=== PATIENT | female | born 2000 | race Caucasian/White ===

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

== ENCOUNTER → 2019-01-06 12:19 | Outpatient (CLI) | payer OTHER, SELFPAY ==
--- NOTE | 2019-01-06 12:23 | US_ITS ---
PROCEDURE: US OB /MATERNAL DETAIL CLINICAL INDICATION: US OB Complete COMPARISON: US OB TRANSVAGINAL from 11/03/2018 FINDINGS: Single viable intrauterine gestation. Breech position. Placenta: Anteriorplacenta grade 1. There are 2 areas of decreased echogenicity within the placenta and may be due to maternal lakes. Consider follow-up to confirm stability There is average amount fluid. The cervix appears satisfactory. Closed and measuring 4 cm in length. Complete survey performed and was unremarkable on the submitted images as in PACS. No discrete anomalies identified on survey imaging by technologist. Active fetus. Three-vessel cord with satisfactory umbilical cord insertion. 4- chamber heart noted. Survey of brain & ventricles Unremarkable. Face and neck survey unremarkable. Diaphragm and chest views unremarkable. Abdomen: Both kidneys noted and unremarkable. Stomach noted and satisfactory. Spine: Survey of the spine satisfactory with no anomalies identified nor imaged. Both arms and legs noted. Amniotic Fluid: Adequate. Maternal adnexa: No significant findings. There was question of nuchal fold thickening however, only 1 images submitted of this region. Measurements: Average ultrasound age 19 weeks 6 days. Gestational Age 20 weeks 0 days the Estimated due date by ultrasound age 0405/27/2019. Estimated weight 319.6 ggrams. BPD = 20/0 OFD = 20/2 HC = 19/3 AC = 20/0 FL = 20/0 Growth Percentile= 39 percent% Heart Rate = 156 bpm Cerebellum = 20/1 Humerus = 20/1 HC/AC is 1.14 CI is 0.78 FL/BPD is 0.7 FL/AC is 0.22 IMPRESSION: Live intrauterine gestation with an average ultrasound age of 19 weeks 6 days. All parameters correlate. There was questionable nuchal fold thickening which could be confirmed with follow-up. The. There are at least 2 hypoechoic areas within the placenta and may be due to maternal lakes among other less common entities. Consider follow-up to confirm stability Dictated by: Bharath Pruitt MD 01/06/2019 19:55 Electronically signed by Bharath Pruitt MD in [place] 01/07/2019 05:31
== END ==
PROVIDERS: Visit Provider Nurse Practitioner Obstetrics & Gynecology
DX: Z36.0 Encounter for antenatal screening for chromosomal anomalies (principal)
CPT/HCPCS: 76811

== ENCOUNTER 2019-02-02 14:14 | Outpatient (CLI) | payer OTHER, SELFPAY ==
[2019-02-02 14:29] VITALS: BP 131/80; PULSE 89; RESP 18; TEMP 37; O2SAT 98; BMI 35.9
[2019-02-02 14:42] LABS: Microscopic, Urine URINE MICROSCOPIC (MICROSCOPIC)
[2019-02-02 14:45] LABS: Appearance,Urine SL CLOUDY (Clear); Bilirubin,Urine Negative (Negative); Blood, Urine Negative (Negative); Color,Urine YELLOW (Yellow); Glucose,Urine (UA) Negative (Negative); Ketones,Urine Negative (Negative); Leukocyte Esterase,Urine Negative (Negative); Nitrate,Urine Negative (Negative); Protein,Urine Negative (Negative)
[2019-02-02 15:06] LABS: Amphetamine/Metha Screen,Urine Negative ng/mL (<1000); Barbiturates Screen,Urine Negative ng/mL (<200); Benzodiazepines Screen,Urine Negative ng/mL (<200); Cannabinoid Screen,Urine Negative ng/mL (<50); Cocaine Screen,Urine Negative ng/mL (<300); Methadone Screen,Urine Negative ng/mL (<300); Opiate Screen,Urine Negative ng/mL (<300); Phencyclidine Screen,Urine Negative ng/mL (<25)
[2019-02-02 15:20] LABS: Bacteria,Urine Trace /lpf; RBC,Urine Occasional #/hpf (0-3)
== END 2019-02-02 15:00 | disposition home or self-care (01) ==
LOC: OBOUT 14:15 → OB 14:16
PROVIDERS: Visit Provider Obstetrics & Gynecology
DX: O26.892 Other specified pregnancy related conditions, second trimester; Z3A.23 23 weeks gestation of pregnancy; R55 Syncope and collapse
CPT/HCPCS: 59025; 80305; 81001

== ENCOUNTER 2019-02-04 11:35 | Outpatient (CLI) | payer OTHER, SELFPAY ==
[2019-02-04 12:03] VITALS: BMI 37.1
[2019-02-04 12:06] VITALS: BP 126/73; PULSE 107; RESP 18; TEMP 37.5; O2SAT 95; BMI 37.1
[2019-02-04 12:11] LABS: Microscopic, Urine URINE MICROSCOPIC (MICROSCOPIC)
[2019-02-04 12:12] LABS: Appearance,Urine CLEAR (Clear); Bilirubin,Urine Negative (Negative); Blood, Urine Negative (Negative); Color,Urine YELLOW (Yellow); Glucose,Urine (UA) Negative (Negative); Ketones,Urine Negative (Negative); Leukocyte Esterase,Urine TRACE (Negative); Nitrate,Urine Negative (Negative); Protein,Urine Negative (Negative); Urobilinogen,Urine 0.2 EU/dl (0.2)
[2019-02-04 12:16] LABS: Amorphous Sediment,Urine 1+ /lpf; Amphetamine/Metha Screen,Urine Negative ng/mL (<1000); Bacteria,Urine 2+ /lpf; Barbiturates Screen,Urine Negative ng/mL (<200); Benzodiazepines Screen,Urine Negative ng/mL (<200); Cannabinoid Screen,Urine Negative ng/mL (<50); Cocaine Screen,Urine Negative ng/mL (<300); Methadone Screen,Urine Negative ng/mL (<300); Opiate Screen,Urine Negative ng/mL (<300); Phencyclidine Screen,Urine Negative ng/mL (<25); RBC,Urine Occasional #/hpf (0-3)
== END 2019-02-04 13:00 | disposition home or self-care (01) ==
LOC: OBOUT 11:40 → OB 11:41
PROVIDERS: PCP Nurse Practitioner Obstetrics & Gynecology; Visit Provider Obstetrics & Gynecology
DX: O26.892 Other specified pregnancy related conditions, second trimester (principal); Z3A.23 23 weeks gestation of pregnancy; R11.2 Nausea with vomiting, unspecified; R19.7 Diarrhea, unspecified
CPT/HCPCS: 59025; 80305; 81001; 87086; 96360

== ENCOUNTER → 2019-03-10 16:19 | Outpatient (CLI) | payer MEDICAID, SELFPAY | PROVIDERS: Visit Provider Nurse Practitioner Obstetrics & Gynecology | DX: Z34.90 Encounter for supervision of normal pregnancy, unspecified, unspecified trimester (principal) | CPT/HCPCS: 36415 ==

== ENCOUNTER → 2019-03-11 09:01 | Outpatient (CLI) | payer MEDICAID, SELFPAY ==
[2019-03-11 09:54] LABS: Glucose,Fasting 80 mg/dL (60-105)
[2019-03-11 10:10] VITALS: BP 134/65; PULSE 102; RESP 18; O2SAT 97
[2019-03-11 11:25] LABS: Glucose 1 Hour 108 mg/dL (74-106)
== END ==
LOC: LAB 09:03 → INF 09:59
PROVIDERS: Visit Provider Nurse Practitioner Obstetrics & Gynecology
DX: Z34.90 Encounter for supervision of normal pregnancy, unspecified, unspecified trimester (principal); Z3A.27 27 weeks gestation of pregnancy
CPT/HCPCS: 36415; 82951; 96372; J2790

== ENCOUNTER 2019-03-26 00:52 | Outpatient (CLI) | payer MEDICAID, SELFPAY ==
[2019-03-26 00:57] VITALS: BP 125/67; PULSE 117; RESP 16; TEMP 36.8; O2SAT 94; BMI 37.4
[2019-03-26 01:17] LABS: Microscopic, Urine URINE MICROSCOPIC (MICROSCOPIC)
[2019-03-26 01:19] LABS: Appearance,Urine CLEAR (Clear); Bilirubin,Urine Negative (Negative); Blood, Urine Negative (Negative); Color,Urine YELLOW (Yellow); Glucose,Urine (UA) Negative (Negative); Ketones,Urine Negative (Negative); Leukocyte Esterase,Urine 1+ (Negative); Nitrate,Urine Negative (Negative); PH,Urine 7.5 (5.0-8.5); Protein,Urine Negative (Negative); Specific Gravity, Urine 1.015 (1.005-1.030); Urobilinogen,Urine 0.2 EU/dl (0.2)
[2019-03-26 01:26] LABS: Amphetamine/Metha Screen,Urine Negative ng/mL (<1000); Barbiturates Screen,Urine Negative ng/mL (<200); Benzodiazepines Screen,Urine Negative ng/mL (<200); Cannabinoid Screen,Urine Negative ng/mL (<50); Cocaine Screen,Urine Negative ng/mL (<300); Methadone Screen,Urine Negative ng/mL (<300); Opiate Screen,Urine Negative ng/mL (<300); Phencyclidine Screen,Urine Negative ng/mL (<25)
[2019-03-26 01:30] LABS: Bacteria,Urine Trace /lpf
== END 2019-03-26 02:12 | disposition home or self-care (01) ==
LOC: OBOUT 00:54 → OB 00:54
PROVIDERS: Visit Provider Nurse Practitioner Obstetrics & Gynecology
DX: O26.893 Other specified pregnancy related conditions, third trimester (principal); Z3A.31 31 weeks gestation of pregnancy; M54.5 Low back pain; R10.2 Pelvic and perineal pain
CPT/HCPCS: 59025; 80305; 81001; 87086; 96365; 96366; 96372; G0463

== ENCOUNTER 2019-04-11 16:26 | Outpatient (CLI) | payer MEDICAID, SELFPAY ==
[2019-04-11 16:29] VITALS: BMI 38.2
[2019-04-11 16:40] VITALS: BP 126/73; PULSE 105; RESP 18; TEMP 37.2; O2SAT 97; BMI 38.2
[2019-04-11 16:57] LABS: Microscopic, Urine URINE MICROSCOPIC (MICROSCOPIC)
[2019-04-11 17:00] LABS: Appearance,Urine CLEAR (Clear); Blood, Urine TRACE-I (Negative); Color,Urine DK YELLOW (Yellow); Glucose,Urine (UA) Negative (Negative); Ketones,Urine Negative (Negative); Leukocyte Esterase,Urine TRACE (Negative); Nitrate,Urine Negative (Negative); Protein,Urine Negative (Negative); Specific Gravity, Urine 1.025 (1.005-1.030)
[2019-04-11 17:08] LABS: Bilirubin,Urine Negative (Negative)
[2019-04-11 17:09] LABS: Amorphous Sediment,Urine 2+ /lpf; Calcium Oxalate Crystals,Urine Trace /lpf
[2019-04-11 17:10] LABS: Fetal Membrane Rupture (Rapid) Negative (Negative)
[2019-04-11 17:12] LABS: Barbiturates Screen,Urine Negative ng/ml (<200)
[2019-04-11 17:13] LABS: Benzodiazepines Screen,Urine Negative ng/ml (<200)
[2019-04-11 17:14] LABS: Amphetamine/Metha Screen,Urine Negative ng/ml (<1000); Cannabinoid Screen,Urine Negative ng/ml (<50)
[2019-04-11 17:15] LABS: Cocaine Screen,Urine Negative ng/ml (<300); Methadone Screen,Urine Negative ng/ml (<300)
[2019-04-11 17:16] LABS: Opiate Screen,Urine Negative ng/ml (<300)
[2019-04-11 17:17] LABS: Phencyclidine Screen,Urine Negative ng/ml (<25)
== END 2019-04-11 18:50 | disposition home or self-care (01) ==
LOC: OBOUT 16:28 → OB 16:28
PROVIDERS: Visit Provider Nurse Practitioner Obstetrics & Gynecology
DX: O26.893 Other specified pregnancy related conditions, third trimester (principal); Z3A.33 33 weeks gestation of pregnancy
CPT/HCPCS: 59025; 80305; 81001; 84112; 96365; G0463

== ENCOUNTER → 2019-04-21 17:38 | Outpatient (CLI) | payer MEDICAID, SELFPAY | PROVIDERS: Visit Provider Nurse Practitioner Obstetrics & Gynecology | DX: Z34.90 Encounter for supervision of normal pregnancy, unspecified, unspecified trimester (principal) | CPT/HCPCS: 86403 ==

== ENCOUNTER 2019-05-03 05:47 | Outpatient (CLI) | payer MEDICAID, SELFPAY ==
[2019-05-03 05:54] VITALS: BMI 39.0
[2019-05-03 05:55] VITALS: BP 109/75; PULSE 121; RESP 17; TEMP 37.1; O2SAT 95; BMI 39.0
[2019-05-03 06:06] LABS: Microscopic, Urine URINE MICROSCOPIC (MICROSCOPIC)
[2019-05-03 06:09] LABS: Appearance,Urine CLOUDY (Clear); Bilirubin,Urine Negative (Negative); Blood, Urine Negative (Negative); Color,Urine YELLOW (Yellow); Glucose,Urine (UA) Negative (Negative); Ketones,Urine Negative (Negative); Leukocyte Esterase,Urine TRACE (Negative); Nitrate,Urine Negative (Negative); PH,Urine 7.5 (5.0-8.5); Protein,Urine Negative (Negative); Urobilinogen,Urine 0.2 EU/dl (0.2)
[2019-05-03 06:14] LABS: Amorphous Sediment,Urine 4+ /lpf; Squamous Epithelial Cell,Urine 20-50 #/hpf (0-5)
[2019-05-03 06:19] LABS: Barbiturates Screen,Urine Negative ng/ml (<200)
[2019-05-03 06:20] LABS: Amphetamine/Metha Screen,Urine Negative ng/ml (<1000); Benzodiazepines Screen,Urine Negative ng/ml (<200)
[2019-05-03 06:21] LABS: Cannabinoid Screen,Urine Negative ng/ml (<50)
[2019-05-03 06:22] LABS: Cocaine Screen,Urine Negative ng/ml (<300); Methadone Screen,Urine Negative ng/ml (<300)
[2019-05-03 06:23] LABS: Opiate Screen,Urine Negative ng/ml (<300)
[2019-05-03 06:24] LABS: Phencyclidine Screen,Urine Negative ng/ml (<25)
[2019-05-03 06:31] LABS: Fetal Membrane Rupture (Rapid) Negative (Negative)
== END 2019-05-03 08:37 | disposition hospice, home (50) ==
LOC: OBOUT 05:49 → OB 05:50
PROVIDERS: Referring Provider Nurse Practitioner Obstetrics & Gynecology; Visit Provider Obstetrics & Gynecology
DX: O47.03 False labor before 37 completed weeks of gestation, third trimester (principal); Z3A.36 36 weeks gestation of pregnancy
CPT/HCPCS: 59025; 80305; 81001; 84112; G0463

== ENCOUNTER 2019-05-16 17:28 | Outpatient (CLI) | payer MEDICAID, SELFPAY ==
[2019-05-16 17:37] VITALS: BMI 39.0
[2019-05-16 17:51] VITALS: TEMP 36.9; BMI 39.0
[2019-05-16 17:52] LABS: Microscopic, Urine URINE MICROSCOPIC (MICROSCOPIC)
[2019-05-16 17:53] LABS: Appearance,Urine CLEAR (Clear); Bilirubin,Urine Negative (Negative); Blood, Urine Negative (Negative); Color,Urine YELLOW (Yellow); Glucose,Urine (UA) Negative (Negative); Ketones,Urine Negative (Negative); Leukocyte Esterase,Urine 1+ (Negative); Nitrate,Urine Negative (Negative); Protein,Urine Negative (Negative); Urobilinogen,Urine 0.2 EU/dl (0.2)
[2019-05-16 17:58] LABS: Bacteria,Urine Trace /lpf
[2019-05-16 18:00] VITALS: BP 122/69; PULSE 99; RESP 18; TEMP 36.9; O2SAT 100
[2019-05-16 18:04] LABS: Barbiturates Screen,Urine Negative ng/ml (<200)
[2019-05-16 18:05] LABS: Benzodiazepines Screen,Urine Negative ng/ml (<200)
[2019-05-16 18:06] LABS: Amphetamine/Metha Screen,Urine Negative ng/ml (<1000); Cannabinoid Screen,Urine Negative ng/ml (<50)
[2019-05-16 18:07] LABS: Cocaine Screen,Urine Negative ng/ml (<300); Methadone Screen,Urine Negative ng/ml (<300)
[2019-05-16 18:08] LABS: Opiate Screen,Urine Negative ng/ml (<300)
[2019-05-16 18:09] LABS: Phencyclidine Screen,Urine Negative ng/ml (<25)
== END 2019-05-16 21:17 | disposition home or self-care (01) ==
LOC: OBOUT 17:30 → OB 17:31
PROVIDERS: Visit Provider Nurse Practitioner Obstetrics & Gynecology
DX: Z34.90 Encounter for supervision of normal pregnancy, unspecified, unspecified trimester (principal)
CPT/HCPCS: 59025; 80305; 81001; 87086; 96365; G0463

== ENCOUNTER 2019-05-17 19:29 | Inpatient (IN) | payer MEDICAID, SELFPAY ==
[2019-05-17 17:45] VITALS: BMI 39.0
[2019-05-17 17:47] VITALS: TEMP 36.6; BMI 39.0
--- NOTE | 2019-05-17 18:41 | US_ITS ---
PROCEDURE: US OB BPP W/FET-MAT S/D CLINICAL INDICATION: DECREASED MOVEMENT FOR 2 DAYS COMPARISON: US OB /MATERNAL DETAIL from 01/06/2019 FINDINGS: There is a single live fetus which is in cephalic presentation. The placenta is anterior and grade 2. The cervix is closed and measures 4 cm. The RUTHIE is low at 7 cm. Biophysical profile is 8 of 8. heart and practice breathing motion was noted. Measurements: Average ultrasound age 37weeks 6days. Gestational Age 37weeks 6days Estimated due date by ultrasound age 0406/01/2019. Estimated weight 3,319g BPD = 37weeks 5days OFD = not applicable HC = 39weeks AC = 38weeks 3days FL = 36weeks 1day Growth Percentile= 47% Heart Rate = 135bpm Cerebellum = Humerus = HC/AC is 0.98 CI is 0.76 FL/BPD is 0.76 FL/AC is 0.2 IMPRESSION: Live IUP in cephalic presentation. Average ultrasound age 37 weeks 6 days. Biophysical profile 8 of 8. RUTHIE low at 7 cm Dictated by: Bharath Pruitt MD 05/18/2019 12:54 Electronically signed by Bharath Pruitt MD in [place] 05/18/2019 12:54
[2019-05-17 19:35] VITALS: BP 133/69; PULSE 83; RESP 18; TEMP 36.6; O2SAT 97
[2019-05-17 20:01] LABS: Basophils % 0.1 % (0.1-2.0); Eosinophils # 0.1 K/mm3 (0.0-0.4); Eosinophils % 0.7 % (0.1-12.0); Hematocrit 35.2 % (37.0-47.0); Hemoglobin 11.7 g/dL (12.2-16.2); Lymphocytes # 1.8 K/mm3 (0.7-4.5); Lymphocytes % 14.2 % (10-50); Mean Corpuscular HGB Conc 33.2 g/dL (31.8-35.4); Mean Corpuscular Hemoglobin 28.5 pg (27.0-31.2); Mean Corpuscular Volume 85.9 fl (81-99); Mean Platelet Volume 9.2 fl (7.4-10.4); Monocytes # 0.5 K/mm3 (0.1-1.0); Monocytes % 4.3 % (1.7-9.3); Neutrophils % 80.7 % (37.0-80.0); Platelet Count 311 K/mm3 (142-424); Red Blood Count 4.11 M/mm3 (4.20-5.40); Red Cell Distribution Width 13.5 % (11.5-17.5); White Blood Count 12.4 K/mm3 (4.5-13.0)
[2019-05-17 20:09] LABS: Blood Urea Nitrogen 6 mg/dl (7-17); Calcium 9.1 mg/dl (8.4-10.2); Carbon Dioxide 19 mmol/L (22.0-30.0); Chloride 109 mmol/L (98-107); Creatinine Clearance Estimated 314 mL/min (50-200); Estimated Glomerular Filt Rate 159 ml/min (>60); GFR (African American) 192 ML/MIN (>60); Glucose 91 mg/dl (74-100); Sodium 134 mmol/L (136-145)
[2019-05-17 23:31] LABS: Microscopic, Urine URINE MICROSCOPIC (MICROSCOPIC)
[2019-05-17 23:40] LABS: Appearance,Urine CLEAR (Clear); Bilirubin,Urine Negative (Negative); Blood, Urine Negative (Negative); Color,Urine YELLOW (Yellow); Glucose,Urine (UA) Negative (Negative); Ketones,Urine Negative (Negative); Leukocyte Esterase,Urine 2+ (Negative); Nitrate,Urine Negative (Negative); Protein,Urine Negative (Negative)
[2019-05-17 23:41] LABS: Squamous Epithelial Cell,Urine 50-100 #/hpf (0-5)
[2019-05-18] VITALS (7 sets, daily range): BP systolic 123–157; BP diastolic 69–89; PULSE 75–100; RESP 14–18; TEMP 36.2–36.7; O2SAT 94–98
[2019-05-18 00:43] LABS: Amphetamine/Metha Screen,Urine Negative ng/ml (<1000); Barbiturates Screen,Urine Negative ng/ml (<200); Cannabinoid Screen,Urine Negative ng/ml (<50); Cocaine Screen,Urine Negative ng/ml (<300); Methadone Screen,Urine Negative ng/ml (<300); Opiate Screen,Urine Negative ng/ml (<300); Phencyclidine Screen,Urine Negative ng/ml (<25)
[2019-05-18 00:47] LABS: Benzodiazepines Screen,Urine Negative ng/ml (<200)
--- NOTE | 2019-05-18 09:26 | HMH.LABNOT ---
Labor Note - Subjective: Date: 05/18/19 Time: 09:26 regular contraction - Objective: NST:: Reactive Contractions:: every 2-3 minutes Effacement:: 75% Membranes: artificially ruptured - Fetus: Monitoring?: Yes monitoring type:: External - Assessment: Labor progressing?: Yes Cephalopelvic disproportion?: No Patient Problems: All Active Problems Vomiting affecting (Acute) (Acute) Urinary tract infection (Acute) Cough (Acute) Localized skin eruption (Acute) Contusion of left knee, initial encounter (Acute) Fall on steps (Acute) Burning with urination (Acute) PCB (post coital bleeding) (Acute) Positive test (Acute) - Plan: Anesthesia for epidural?: Yes Continue to labor down?: Yes Plan for ?: No Continue to monitor?: Yes Start pushing?: No
--- NOTE | 2019-05-18 09:27 | HMH.OBAPHP ---
OB - H&P: HPI Antepartum - History of Present Illness Chief complaint: Decreased movement, oligohydramnios History of present illness: She is a 18-year-old 1 para 0 who over the last few days has had decreased movement. She came in yesterday for an NST which was reactive but I had an ultrasound performed that showed oligohydramnios. As result of that we elected to induce her labor. She is 38+5 weeks gestational age. - History of Present Criteria for establishing EDC:: LMP confirmed by 1st trimester US care: good care Ultrasounds: normal 1st trimester US, normal mid trimester US Obstetrical complications: other Medical complications: none [facility] History I have reviewed the patient's past medical history: Yes Medical History: Denies:: Cancer, Diabetes Mellitus Type 1, Diabetes Mellitus Type 2, Hypertension, Internal Pacemaker, MRSA *Have you ever received a pneumonia vaccine?: No *Have you received a flu vaccine this season?: No Other Surgeries: Yes: No Previous Surgery. No: , Pacemaker Amputation: No Fractures: No - *Social History Smoking Status: Current every day smoker Tobacco Type: cigarettes # Packs/Day (cigarettes): 1 Alcohol Intake: never Substance Use Type: denies use *Occupational Status:: unemployed Housing: house Household Members: family *Travel in the last 8 weeks: None Family Hx:: Cancer, Diabetes, Hypertension, Other Para: 0 Review of Systems - Review of Systems Review of systems:: pertinent systems reviewed and negative unless documented below Meds Home Medications Medication Instructions Recorded Confirmed Type 72-iron 90 mg-folic acid 1 tab PO DAILY 04/29/19 05/18/19 History 1 mg-DSS 50 mg-dha 300 mg oral pack ferrous sulfate 325 mg (65 mg 325 mg PO DAILY 05/06/19 05/17/19 History iron) tablet Allergies Allergy/AdvReac Type Severity Reaction Status Date / Time No Known Allergies Allergy Verified 05/13/19 14:35 OB - H&P: Exam - Physical Exam Vital signs: Temp Pulse Resp BP Pulse Ox 97.8 F 83 18 133/69 97 05/17/19 19:35 05/17/19 19:35 05/17/19 19:35 05/17/19 19:35 05/17/19 19:35 - Constitutional no acute distress - Routine HEENT Exam Head: Present: normocephalic Eye: Present: EOMI, PERRL ENT: Present: mucous membranes moist - Routine Neck Exam Present: supple, full ROM - Routine Respiratory Exam Absent: accessory muscle use (good air entry bilaterally), respiratory distress, wheezes, crackles - Routine Cardiovascular Exam Present: RRR. Absent: murmur - Routine Abdominal Exam Present: soft, normoactive bowel sounds. Absent: tenderness, distended, guarding - Routine Rectal Exam Patient deferred: visual exam, digital exam - Routine Exam Patient deferred: external exam, groin exam, perineal exam - Routine Extremities Exam Present: full ROM. Absent: cyanosis, edema - Routine Skin Exam Present: intact. Absent: cyanosis - Routine Neurological Exam Present: alert, oriented X3 - Routine Psychiatric Exam Present: normal affect OB - Results - Labs Labs: Short CBC 05/17/19 Range/Units 19:40 WBC 12.4 (4.5-13.0) K/mm3 Hgb 11.7 L (12.2-16.2) g/dL Hct 35.2 L (37.0-47.0) % Plt Count 311 (142-424) K/mm3 BMP 05/17/19 19:40 Sodium 134 L Potassium 4.0 Chloride 109 H Carbon Dioxide 19 L BUN 6 L Creatinine 0.50 L Glucose 91 Calcium 9.1 Urine 05/17/19 Range/Units 23:22 Urine Color Yellow (Yellow) Urine Appearance Clear (Clear) Urine pH 7.0 (5.0-8.5) Ur Specific [place] 1.020 (1.005-1.030) Urine Protein Negative (Negative) Urine Glucose (UA) Negative (Negative) OB - A/P Antepartum (1) Decreased movement affecting management of mother, antepartum Current visit: Yes Status: Acute (2) Oligohydramnios antepartum Current visit: Yes Status: Acute - Additional Plan [place]
--- NOTE | 2019-05-18 10:11 | P.PN_ITS ---
[facility] Anesthesia Checklist - Patient Identification Patient Identification: Arm Band, Verbal (Name & ) - Structural Data Admitted From: Home Planned Operative Procedure/s: Labor epidural Consent for Planned Operative Procedure(s) Verified: Yes Verified Documents: Surgical Consent, History and Physical - NPO Status Verified Time NPO: 06:30 - Chart Verification Results Verified: CBC, BMP, UA (Urine Toxicology) - Additional verifications Patient : Yes Anesthesia Reactions: No - Airway Assessment C-Spine Mobility Assessed: Yes TMJ Mobility Assessed: Yes Dentition: Good Dentition - Neurological Assessment Level of Consciousness: Awake, Alert, Appropriate, Follows Commands Hx Seizures: No Numbness or tingling in extremities: No - Anesthesia Plan Anesthesia Risk discussed: Yes Anesthesia Plan: Verified ASA Class: II Anesthesia Type: Epidural [facility] History I have reviewed the patient's past medical history: Yes Medical History: Reports:: Gastroesophageal Reflux Disease(GERD) ( induced) Denies:: Cancer, Diabetes Mellitus Type 1, Diabetes Mellitus Type 2, Hypertension, Internal Pacemaker, MRSA *Have you ever received a pneumonia vaccine?: No *Have you received a flu vaccine this season?: No Comment:: obesity Anesthesia experience/problems:: no complications Other Surgeries: Yes: No Previous Surgery. No: , Pacemaker Amputation: No Fractures: No - *Social History Smoking Status: Current every day smoker Tobacco Type: cigarettes # Packs/Day (cigarettes): 1 Alcohol Intake: never Substance Use Type: denies use *Occupational Status:: unemployed Housing: house Household Members: family *Travel in the last 8 weeks: None Family Hx:: Cancer, Diabetes, Hypertension, Other Para: 0
--- NOTE | 2019-05-18 14:14 | HMH.LABNOT ---
Labor Note - Subjective: Date: 05/18/19 Time: 13:40 regular contraction - Objective: NST:: Reactive Contractions:: every 2-3 minutes Cervical Dilation:: 4 Effacement:: 90% Station: -1 Membranes: artificially ruptured - Fetus: Monitoring?: Yes monitoring type:: Internal - Assessment: Labor progressing?: Yes Cephalopelvic disproportion?: No Patient Problems: All Active Problems Vomiting affecting (Acute) Decreased movement affecting management of mother, antepartum (Acute) Oligohydramnios antepartum (Acute) (Acute) Urinary tract infection (Acute) Cough (Acute) Localized skin eruption (Acute) Contusion of left knee, initial encounter (Acute) Fall on steps (Acute) Burning with urination (Acute) PCB (post coital bleeding) (Acute) Positive test (Acute) - Plan: Anesthesia for epidural?: Yes Continue to labor down?: Yes Plan for ?: No Continue to monitor?: Yes Start pushing?: No Comment:: She has progressed to 4 cm. We will continue on with this.
--- NOTE | 2019-05-18 16:52 | P.PN_ITS ---
Internal Medicine - PN: Subj *Date: 05/18/19 *Time: 16:52 Interval history: The nonstress test is reactive and she is having regular contractions. Her cervix remains at 4 cm 90% Station -1. There is significant molding of the head. She really has not progressed at all in the last 3 to 4 hours. As result of that we will go ahead with a . Exam Vital signs and Labs for Last 24 Hours: Temp Pulse Resp BP Pulse Ox 97.8 F 83 18 133/69 97 05/17/19 19:35 05/17/19 19:35 05/17/19 19:35 05/17/19 19:35 05/17/19 19:35 Laboratory Results - last 24 hr 05/17/19 19:40: WBC 12.4, RBC 4.11 L, Hgb 11.7 L, Hct 35.2 L, MCV 85.9, MCH 28.5, MCHC 33.2, RDW 13.5, Plt Count 311, MPV 9.2, Neut % (Auto) 80.7 H, Lymph % (Auto) 14.2, [place] % (Auto) 4.3, Eos % (Auto) 0.7, Baso % (Auto) 0.1, Neut # (Auto) 10.0 H, Lymph # (Auto) 1.8, [place] # (Auto) 0.5, Eos # (Auto) 0.1, Baso # (Auto) 0.0 05/17/19 19:40: Sodium 134 L, Potassium 4.0, Chloride 109 H, Carbon Dioxide 19 L , Anion Gap 10.0, BUN 6 L, Creatinine 0.50 L, Estimated Creat Clear 314 H, Estimated GFR 159, Est GFR ( Amer) 192, Glucose 91, Calcium 9.1 05/17/19 19:40: Blood Type O Negative, Antibody Screen Negative 05/17/19 23:22: Urine Color Yellow, Urine Appearance Clear, Urine pH 7.0, Ur Specific [place] 1.020, Urine Protein Negative, Urine Glucose (UA) Negative, Urine Ketones Negative, Urine Blood Negative, Urine Nitrate Negative, Urine Bilirubin Negative, Urine Urobilinogen 1.0, Ur Leukocyte Esterase 2+ A, Urine WBC 5-10, Ur Squamous Epith Cells 50-100 05/17/19 23:22: Urine Opiates Screen Negative, Urine Methadone Screen Negative, Ur Barbituates Screen Negative, Ur Phencyclidine Scrn Negative, Ur Amphetamines Screen Negative, U Benzodiazepines Scrn Negative, Urine Cocaine Screen Negative, U Marijuana (THC) Screen Negative I & O for Last 24 hours: Intake & Output 05/16/19 05/17/19 05/18/19 05/19/19 11:59 11:59 11:59 11:59 Weight 242 lb - Constitutional no acute distress Assessment and Plan (1) Decreased movement affecting management of mother, antepartum Current visit: Yes Status: Acute Category: Medical Code(s): O36.8190 - Decreased movements, unspecified trimester, not applicable or unspecified (2) Oligohydramnios antepartum Current visit: Yes Status: Acute Category: Medical Code(s): O41.00X0 - Oligohydramnios, unspecified trimester, not applicable or unspecified (3) pelvic disproportion delivered Current visit: Yes Status: Acute Category: Medical Code(s): O33.9 - Maternal care for disproportion, unspecified - Assessment and plan all Dx Assessment and Plan for all problems:: She really has not progressed beyond 4 cm. The cervix is edematous and there is also some bloody show. It is more than I would expect from just cervical changes. She may have a small abruption. There is however no evidence of distress. Given the fact that she has not progressed in the last 3 to 4 hours. We will go ahead with a . We discussed the risks of surgery that includes bleeding, infection, injuries to other tissues. We discussed the rare risk of DVT. We discussed the need for DVT prophylaxis. All questions were answered and consents were signed.
[2019-05-18 17:58] LABS: Cord Blood PH 7.34 (7.35-7.45)
--- NOTE | 2019-05-18 18:22 | HMH.OPNOTE ---
Date of procedure: 05/18/19 Pre-op Diagnosis:: Term , oligohydramnios, pelvic disproportion, Post-op Diagnosis:: Term , oligohydramnios, pelvic disproportion, uterine atony Procedure performed:: Primary lower segment transverse section, B-angel suture Surgeon:: Daniel Sanchez MD Oyster Cultivator(s):: Dr. Orozco AGENCY SERVICE COORDINATOR:: Gus Mcneal Anesthesia: epidural Estimated blood loss (mL): 800 Clinical Note:: She is a 18-year-old 1 para 0 at 38+ weeks gestational age. She had decreased movement and an ultrasound yesterday showed that she had oligohydramnios. As result of that we elected to induce her labor. She really failed to progress beyond 4 cm. She did have some vaginal bleeding and it was not clear whether this was a small abruption or just cervical changes. After having discussed the risks and benefits would like to perform a primary lower segment transverse section for failure to progress. Operative findings:: She delivered a liveborn female child at 5:47 PM on the evening of May 18, 2019. The baby had Apgars of 7 at 1 minute and 10 at 5 minutes. pH is pending. Ovaries and tubes appeared normal. The uterus was quite boggy after delivery and as result of that I elected to place a B. Angel suture. Operative note:: She was taken to the operating room where spinal anesthesia was found be adequate. She was prepped and draped in normal sterile fashion in the supine position with a leftward tilt. A Yates catheter was in the bladder. A Pfannenstiel skin incision was made with knife then carried through to the underlying layer of fascia with cautery. The fascia was opened in the midline with cautery and extended laterally using Guerrero scissors. Kota clamps were applied to the superior aspect of the fascial incision which was tented up and the underlying rectus muscles dissected off using cautery. The Kota clamps were then applied to the inferior aspect of the fascial incision which in a similar fashion was tented up and the underlying rectus muscles dissected off using cautery. The rectus muscles were then in the midline, the peritoneum identified, and entered sharply with Metzenbaum scissors. This incision was then extended superiorly and inferiorly with cautery. We had good visualization of the bladder inferiorly. The bladder peritoneum was then opened in the midline and extended laterally using Metzenbaum scissors. A bladder flap was created digitally. Transverse incision was made through the uterine muscle to the amnion. This incision was then extended laterally using fingers traction. The amnion was entered sharply with knife. There was clear amniotic fluid. The 's head was then delivered atraumatically. A loose nuchal cord was then reduced. This was followed by the anterior shoulder and the rest of the 's body atraumatically. The oropharynx and nasopharynx were bulb suctioned. The was then handed off to Dr. Castellanos who assigned Apgars of 7 at 1 minute and 10 at 5 minutes. We then obtained cord blood as well as cord pH. The pH is pending. Using gentle traction on the cord and countertraction on the fundus I was able to easily deliver the placenta intact. It had a normal three-vessel cord. The uterus was then cleared of clots and debris . The Arthur retractor was then placed within the abdominal cavity. The uterine incision was then closed using running 0 Vicryl suture in a locked fashion. A second layer of the same suture was used to imbricate the first layer. The bladder peritoneum was then closed using running 2-0 Vicryl suture in a locked fashion. The gutters and cul-de-sac were then cleared of clots and debris . Once again hemostasis was assured. The uterus remained quite boggy so I elected to place a B. Angel suture. I placed a suture anteriorly using #1 Vicryl. I then went over the top of the uterus and took 2 bites posteriorly. I then came back over
--- NOTE | 2019-05-18 18:32 | P.PN_ITS ---
[facility] Anesthesia Record Part I Intake, IV Amount: 700 Estimated blood loss (mL): 800 Urine output (mL): 250 Blood Products used (#): none Blood Pressure: 157/77 SaO2: 97 Pulse Rate: 100 Respiratory Rate: 14 Temperature: 97.2 F Patient is:: Awake, Stable Stable to PACU at:: 18:25
--- NOTE | 2019-05-18 19:06 | SUR.OPER ---
heart tones 154 prior to prep 1747- live born female delivered. apgars- 7 & 10
--- NOTE | 2019-05-19 01:01 | P.PN_ITS ---
[facility] [place] Anesthesia Record Part II Discharge Time: 19:05 Destination: Obstetric PACU nurse assessment reviewed?: Yes Patient Condition:: Good Anesthesia Complications:: None Swallowing reflex intact?: Yes Cyanosis?: No Blood Pressure: 123/69 Pulse Rate: 88 Temperature: 98 F Mental Status: Alert & Oriented Pain level:: 0 Nausea and/or vomitting:: None Intake, IV Amount: 0
[2019-05-19 01:04] VITALS: BP 123/69; PULSE 88; TEMP 36.6
[2019-05-19 03:32] VITALS: BP 124/71; PULSE 61; RESP 16; TEMP 36.9; O2SAT 98
[2019-05-19 05:52] LABS: Basophils % 0.1 % (0.1-2.0); Eosinophils # 0.1 K/mm3 (0.0-0.4); Eosinophils % 0.3 % (0.1-12.0); Hematocrit 31.5 % (37.0-47.0); Hemoglobin 10.5 g/dL (12.2-16.2); Lymphocytes # 2.2 K/mm3 (0.7-4.5); Lymphocytes % 11.5 % (10-50); Mean Corpuscular HGB Conc 33.2 g/dL (31.8-35.4); Mean Corpuscular Hemoglobin 28.9 pg (27.0-31.2); Mean Corpuscular Volume 87.2 fl (81-99); Mean Platelet Volume 10.1 fl (7.4-10.4); Monocytes # 0.7 K/mm3 (0.1-1.0); Monocytes % 3.5 % (1.7-9.3); Neutrophils # 16.3 K/mm3 (1.8-7.8); Neutrophils % 84.6 % (37.0-80.0); Platelet Count 334 K/mm3 (142-424); Red Blood Count 3.61 M/mm3 (4.20-5.40); Red Cell Distribution Width 13.8 % (11.5-17.5); White Blood Count 19.2 K/mm3 (4.5-13.0)
[2019-05-19 05:58] LABS: MANUAL DIFFERENTIAL MANUAL DIFFERENTIAL (MANUAL DIFF)
--- NOTE | 2019-05-19 07:40 | P.CONPHA_ITS ---
[facility] VTE Monitoring - Patient Demographics Admission date: 05/18/19 Report Date: 05/19/19 Time: 07:40 Allergies/Adverse Reactions: Patient Allergies No Known Allergies Allergy (Verified 05/13/19 14:35) Height: 1.68 m Weight: 109.769 kg Patient Problems: Current Active Problems Decreased movement affecting management of mother, antepartum (Acute) Oligohydramnios antepartum (Acute) pelvic disproportion delivered (Acute) - VTE Risk Labs: VTE Related Lab Results Hgb 10.5 g/dL (12.2-16.2) L 05/19/19 05:20 Hct 31.5 % (37.0-47.0) L 05/19/19 05:20 Plt Count 334 K/mm3 (142-424) 05/19/19 05:20 BUN 6 mg/dl (7-17) L 05/17/19 19:40 Creatinine 0.50 mg/dl (0.52-1.04) L 05/17/19 19:40 Estimated Creat Clear 314 mL/min (50-200) H 05/17/19 19:40 - Prophylaxis VTE Prophylaxis Ordered?: Yes Types of VTE Prophylaxis: IPCS Thigh High Location of Applied Device: Bilateral Lower Extremeties - VTE Diagnosis Confirmed Treatment or plan recommended: Continue Current Treatment
[2019-05-19 08:00] VITALS: BP 118/71; PULSE 69; RESP 20; TEMP 36.6; O2SAT 97
[2019-05-19 08:08] LABS: Lymphocytes % 9 % (10-50); Monocytes % 2 % (2-9); Neutrophils % 89 % (42-76); Platelet Estimate Slight Increase; RBC Morphology Normal; Total Cells Counted 100
--- NOTE | 2019-05-19 09:55 | SW/DCPLANNER ---
I have received referral for this patient regarding teenage . I visited with patient, infant (Lani Bustillos) and infants father (Nitin Bustillos). Infant was born yesterday [birth year]2019. Patient, and father will reside at [address] [place] [address] with fathers mother (Josselyn Bustillos). This patients first child. Patient is already established with [facility] and [facility]. I have called Abiola Noland with [facility] to inform her this patient has already delivered. Patient stated that she does have: carseat, crib, diapers, and clothing. Patient has no further needs at this time. The plan is for this patient to discharge home on .
[2019-05-19 16:30] VITALS: BP 117/61; PULSE 72; RESP 20; TEMP 36.8; O2SAT 100
--- NOTE | 2019-05-20 09:29 | HMH.ACPN2 ---
Internal Medicine - PN: Subj *Date: 05/19/19 *Time: 09:29 Interval history: She is postop day 1 from a section. She is doing very well. Her blood counts are normal. She is eating and drinking and ambulating. Exam Vital signs and Labs for Last 24 Hours: Temp Pulse Resp BP Pulse Ox 98.3 F 72 20 117/61 100 05/19/19 16:30 05/19/19 16:30 05/19/19 16:30 05/19/19 16:30 05/19/19 16:30 Laboratory Results - last 24 hr 05/19/19 05:20: Blood Type O Negative, Antibody Screen Negative, Screen Positive A, Baby's Rh Status Positive 05/19/19 05:20: KB Hemoglobin Negative 05/19/19 19:24: Rhogam Infusion Rhogam release I & O for Last 24 hours: Intake & Output 05/17/19 05/18/19 05/19/19 05/20/19 11:59 11:59 11:59 11:59 Intake Total 700 / 700 Balance 700 / 700 Weight 242 lb Microbiology Reports for the Last 24 Hours: Microbiology 05/17/19 23:22 Urine,Random Urine Culture - Final Multiple organisms, suggests contamination. - Constitutional no acute distress - *Routine HEENT Exam Head: Present: normocephalic Eye: Present: EOMI, PERRL ENT: Present: mucous membranes moist Assessment and Plan (1) Decreased movement affecting management of mother, antepartum Current visit: Yes Status: Acute Category: Medical Code(s): O36.8190 - Decreased movements, unspecified trimester, not applicable or unspecified (2) Oligohydramnios antepartum Current visit: Yes Status: Acute Category: Medical Code(s): O41.00X0 - Oligohydramnios, unspecified trimester, not applicable or unspecified (3) pelvic disproportion delivered Current visit: Yes Status: Acute Category: Medical Code(s): O33.9 - Maternal care for disproportion, unspecified - Assessment and plan all Dx Assessment and Plan for all problems:: She continues to do very well. We will see her back again in the morning.
--- NOTE | 2019-05-20 09:30 | HMH.ACPN2 ---
Internal Medicine - PN: Subj *Date: 05/20/19 *Time: 09:30 Interval history: She is doing very well. We will plan to send her home tomorrow. Her pain is much improved. She is bottlefeeding. Exam Vital signs and Labs for Last 24 Hours: Temp Pulse Resp BP Pulse Ox 98.3 F 72 20 117/61 100 05/19/19 16:30 05/19/19 16:30 05/19/19 16:30 05/19/19 16:30 05/19/19 16:30 Laboratory Results - last 24 hr 05/19/19 05:20: Blood Type O Negative, Antibody Screen Negative, Screen Positive A, Baby's Rh Status Positive 05/19/19 05:20: KB Hemoglobin Negative 05/19/19 19:24: Rhogam Infusion Rhogam release I & O for Last 24 hours: Intake & Output 05/17/19 05/18/19 05/19/19 05/20/19 11:59 11:59 11:59 11:59 Intake Total 700 / 700 Balance 700 / 700 Weight 242 lb Microbiology Reports for the Last 24 Hours: Microbiology 05/17/19 23:22 Urine,Random Urine Culture - Final Multiple organisms, suggests contamination. - Constitutional no acute distress - *Routine HEENT Exam Head: Present: normocephalic Eye: Present: EOMI, PERRL ENT: Present: mucous membranes moist Assessment and Plan (1) Decreased movement affecting management of mother, antepartum Current visit: Yes Status: Acute Category: Medical Code(s): O36.8190 - Decreased movements, unspecified trimester, not applicable or unspecified (2) Oligohydramnios antepartum Current visit: Yes Status: Acute Category: Medical Code(s): O41.00X0 - Oligohydramnios, unspecified trimester, not applicable or unspecified (3) pelvic disproportion delivered Current visit: Yes Status: Acute Category: Medical Code(s): O33.9 - Maternal care for disproportion, unspecified - Assessment and plan all Dx Assessment and Plan for all problems:: She continues to do well. We will plan to send her home tomorrow. She is postop day 2 from her section
[2019-05-20 15:37] LABS: Hematocrit 26.7 % (37.0-47.0); Hemoglobin 8.7 g/dL (12.2-16.2)
[2019-05-21 07:33] LABS: Hematocrit 24.9 % (37.0-47.0); Hemoglobin 8.2 g/dL (12.2-16.2)
--- NOTE | 2019-05-21 10:11 | HMH.DCSUM ---
General - General Admission date:: 05/17/19 Discharge date: 05/21/19 HPI HPI: She is a 18-year-old 1 now para 1 who is 38 and 6 weeks gestational age. She had decreased movements and had an ultrasound that showed oligohydramnios. As result of that we elected to induce her labor. Hospital Course Hospital Course: She was started on IV oxytocin and had her membranes ruptured. Under labor epidural she progressed to full dilation and delivered spontaneously a liveborn female child at 5:47 PM in the evening of May 18, 2019. The baby weighed 8 pounds 8 ounces and was 19 inches long. She had Apgars of 7 at 1 minute and 10 at 5 minutes. She has done well and has remained afebrile throughout her hospitalization. She is eating and drinking and ambulating. She is breast-feeding. Her hemoglobin is 8.2. She has O Rh- blood. She has received RhoGam. She is rubella immune and group B streptococcus negative. She is discharged home to follow-up with me in approximately 2 weeks time. We have left her heather in and will take these out in 2 weeks. She was given the usual instructions with respect to limiting her activity, driving and sexual activity. Her condition on discharge is stable and improved. She will continue with her vitamins and iron. She is given a prescription for Percocet 5/325 number 20 tablets. Rhogam Administration: Given Objective Vital signs: Temp Pulse Resp BP Pulse Ox 98.3 F 72 20 117/61 100 05/19/19 16:30 05/19/19 16:30 05/19/19 16:30 05/19/19 16:30 05/19/19 16:30 no acute distress - *Routine HEENT Exam Head: Present: normocephalic Eye: Present: EOMI, PERRL ENT: Present: mucous membranes moist Results Labs on day of discharge: Labs from last 24 hours 05/21/19 05/20/19 06:40 15:25 Hgb 8.2 L 8.7 L Hct 24.9 L 26.7 L DS: Diagnosis - Discharge Diagnosis (1) Decreased movement affecting management of mother, antepartum Status: Acute (2) Oligohydramnios antepartum Status: Acute (3) pelvic disproportion delivered Status: Acute Discharge Plan - Patient Discharge Instructions ACTIVITY: No heavy lifting DIET: continue same diet Patient Instructions: How to Care for a Surgical Wound, DI for Hemorrhage, Depression, DI for - Follow up Plan Follow up with: Daniel Sanchez MD [Staff Physician] - (May 31 @ 10 a.m.) Disposition: Home, Self-Alf Medications: Home Medications Medication Instructions Recorded Confirmed Type 72-iron 90 mg-folic acid 1 tab PO DAILY 04/29/19 05/18/19 History 1 mg-DSS 50 mg-dha 300 mg oral pack ferrous sulfate 325 mg (65 mg 325 mg PO DAILY 05/06/19 05/17/19 History iron) tablet Oxycodone HCl/Acetaminophen 1 - 2 tab PO Q4-6H PRN #20 tab 05/21/19 Rx [Percocet 5/325mg tablet] Oxycodone HCl/Acetaminophen 1 - 2 tab PO Q4-6H PRN #20 tab 05/21/19 Rx [Percocet 5/325mg tablet] Prescriptions/Medication Reconciliation: New Oxycodone HCl/Acetaminophen [Percocet 5/325mg tablet] 1 - 2 tab PO Q4-6H PRN #20 tab PRN Reason: Severe Pain Oxycodone HCl/Acetaminophen [Percocet 5/325mg tablet] 1 - 2 tab PO Q4-6H PRN #20 tab PRN Reason: Severe Pain Continued ferrous sulfate 325 mg (65 mg iron) tablet 325 mg PO DAILY 72-iron 90 mg-folic acid 1 mg-DSS 50 mg-dha 300 mg oral pack 1 tab PO DAILY - Problem Reconciliation Problems Reviewed?: Yes
== END 2019-05-21 13:00 | disposition home or self-care (01) | DRG 787 ==
LOC: OBOUT 19:30 → OB 19:30
PROVIDERS: Admitting Provider Nurse Practitioner Obstetrics & Gynecology; Visit Provider Nurse Practitioner Obstetrics & Gynecology
PROC: (CPT 59514; principal; 2019-05-18 17:40)
DX: O36.8130 Decreased fetal movements, third trimester, not applicable or unspecified (principal); O41.03X0 Oligohydramnios, third trimester, not applicable or unspecified; Z3A.38 38 weeks gestation of pregnancy; Z37.0 Single live birth; Z23 Encounter for immunization; O75.89 Other specified complications of labor and delivery; O65.4 Obstructed labor due to fetopelvic disproportion, unspecified
CPT/HCPCS: 59514; 36415; 59025; 76811; 76819; 76820; 80048; 80305; 81001; 82800; 85007; 85014; 85018; 85025; 85460; 85461; 86850; 87086; 96365; C1758; G0463; J2405; J2790

== ENCOUNTER 2019-07-12 19:44 | Emergency (ER) | payer MEDICAID, SELFPAY ==
[2019-07-12 19:44] VITALS: BP 109/70; PULSE 101; RESP 16; TEMP 37.4; O2SAT 99; BMI 35.5
--- NOTE | 2019-07-12 20:00 | HMH.EDGENADL ---
ED Disposition Clinical Impression: Viral URI Disposition: Home, Self-Care Condition on Discharge: Good Instructions: DI for Viral Upper Respiratory Infection -- Adult Referrals: Provider,Referral, MD [Primary Care Provider] - 3 days - Critical Care Critical Care Time: No Attestation: On , the high probability of a clinically significant, sudden or life threatening deterioration of the following system(s) required my full and direct attention, intervention and personal management. The time I documented below is in addition to time spent performing reported procedures but includes the following listed in this critical care notation. Medical Decision Making - Medical Records Medical records reviewed: Yes: I reviewed the patient's medical records. - Mario Inquiry Pt receiving controlled substance: No Orders (Tests/Meds): ORDERS Category Date Time Status SARS-CoV-2, [place] () Stat Lab 07/12/19 19:58 Ordered Medical Decision Narrative: Patient has a clear lung exam, appropriate oxygen saturations on room air and no respiratory distress. Low suspicion for pneumonia, pneumothorax, pulmonary edema. Suspect seasonal allergies as a possibility in addition to viral URI. She is afebrile here. COVID test to [facility] sent. Advised self quarantine until results of her testing return. General Adult HPI - General Stated complaint: Cough Time Seen by Provider: 07/12/19 20:00 Source of Information: Patient Limitations: No Limitations - History of Present Illness HPI narrative: This is a 18-year-old female with no significant past medical history who presents to the emergency department for evaluation of nonproductive cough, fatigue over the last several days. No exacerbating or alleviating factors. She is requesting COVID testing. No sore throat, vomiting, diarrhea, urinary symptoms. Reports a low-grade temperature at home of 99.0. - Related Data Home Medications Medication Instructions Recorded Confirmed 72-iron 90 mg-folic acid 1 tab PO DAILY 04/29/19 06/15/19 1 mg-DSS 50 mg-dha 300 mg oral pack ferrous sulfate 325 mg (65 mg 325 mg PO DAILY 05/06/19 06/15/19 iron) tablet Previous Rx's Medication Instructions Recorded medroxyprogesterone 150 mg/mL 150 mg IM [id number] #1 ml 06/01/19 intramuscular suspension Allergies Allergy/AdvReac Type Severity Reaction Status Date / Time No Known Allergies Allergy Verified 06/15/19 10:14 [facility] History - Hepatitis A Screen Attestation statement:: This patient has been screened for Hepatitis A risk factors. I have reviewed the patient's past medical history: Yes Medical History: Reports:: Gastroesophageal Reflux Disease(GERD) Denies:: Cancer, Diabetes Mellitus Type 1, Diabetes Mellitus Type 2, Hypertension, Internal Pacemaker, MRSA, Seizures Comment: obesity Other Surgeries: Yes: No Previous Surgery, . No: Pacemaker Amputation: No Fractures: No - Social History Smoking Status: Current every day smoker Tobacco Type: cigarettes # Packs/Day (cigarettes): 1 Alcohol Intake: never Substance Use Type: denies use Occupational Status: unemployed Housing: house Household Members: family Family Hx:: Cancer, Diabetes, Hypertension, Other Comment: father -cancer. paternal grandfather-colon ca,living. mother alive, cancer at 16 years old. maternal greatgrandmother alive,breast ca ROS Obtained: Yes All systems reviewed & no additional complaints Physical Exam - General General appearance: alert, in no apparent distress - Head Head exam: atraumatic, normocephalic - Eye Eye exam: Present: normal appearance, PERRL, EOMI - ENT ENT exam: Present: normal exam, normal oropharynx, mucous membranes moist - Neck Neck exam: Present: normal inspection, trachea midline. Absent: tenderness - Chest Chest inspection: Present: normal inspection, symmetric chest wall rise. Absent: tenderness - Respiratory Respirat
[2019-07-12 20:49] VITALS: BP 112/73; PULSE 97; RESP 16; TEMP 37.2; O2SAT 98
[2019-07-15 08:35] LABS: Covid-19 Nasal PCR Sendout Lex NOT DETECTED
== END 2019-07-12 20:51 | disposition home or self-care (01) ==
PROVIDERS: Emergency Provider Emergency Medicine
DX: J06.9 Acute upper respiratory infection, unspecified (principal); K21.9 Gastro-esophageal reflux disease without esophagitis; F17.210 Nicotine dependence, cigarettes, uncomplicated
CPT/HCPCS: 99281; U0004

== ENCOUNTER 2019-07-26 23:02 | Emergency (ER) | payer MEDICAID, SELFPAY ==
[2019-07-26 23:15] VITALS: BP 122/83; PULSE 91; RESP 16; TEMP 37.3; O2SAT 98; BMI 35.5
[2019-07-26 23:27] LABS: Microscopic, Urine URINE MICROSCOPIC (MICROSCOPIC)
[2019-07-26 23:29] LABS: Appearance,Urine CLEAR (Clear); Bilirubin,Urine Negative (Negative); Blood, Urine Negative (Negative); Color,Urine YELLOW (Yellow); Glucose,Urine (UA) Negative (Negative); Ketones,Urine Negative (Negative); Leukocyte Esterase,Urine TRACE (Negative); Nitrate,Urine Negative (Negative); Protein,Urine Negative (Negative); Urobilinogen,Urine 0.2 EU/dl (0.2)
[2019-07-26 23:30] LABS: Urine Pregnancy, HCG Qual. Negative (Negative)
--- NOTE | 2019-07-27 00:01 | CT_ITS ---
PROCEDURE: CT ABDOMEN PELVIS W CON CLINICAL INDICATION: fell off See-Saw LLQ pain vaginal pain Posttraumatic pain, blunt trauma with injury and pain COMPARISON: No exams were available for comparison TECHNIQUE: IV Contrast: 75ML OPTIRAY 350 Oral Contrast none Axial images obtained with sagittal and coronal reformats. All CT scans at the facility use one or more dose reduction, viz: automated exposure control, ma/kV adjustment per patient size (including targeted exams where dose is matched to indication, i.e. head), or iterative reconstruction technique. FINDINGS: LOWER THORAX: No acute finding ABDOMEN & PELVIS: The liver, spleen, adrenal glands, pancreas, and kidneys have an unremarkable appearance. There is mild ectasia of the ureters on both sides. This is nonspecific and could be related to patient's hydration status. The bladder is not significantly distended. No evidence of intestinal obstruction or free air. Unremarkable appearing appendix. No abnormal fluid collections in the abdomen or pelvis. There is some mild stranding of the subcutaneous fat in the left inguinal region nonspecific. Mild stranding of the subcutaneous fat in the lower abdomen which may be due to patient's recent . No acute fracture or dislocation. IMPRESSION: No acute abdominal or pelvic findings. Dictated by: Bharath Pruitt MD 07/27/2019 07:59 Electronically signed by Bharath Pruitt MD in [place] 07/27/2019 07:59
--- NOTE | 2019-07-27 00:05 | HMH.EDNVD ---
ED Disposition Clinical Impression: Abdominal pain Qualifiers: Abdominal location: left lower quadrant Qualified Code(s): R10.32 - Left lower quadrant pain Disposition: Home, Self-Care Condition on Discharge: Good Instructions: DI for Acute Abdomen Additional Instructions: call pcp and ob for follow up Referrals: Provider,Referral, [Primary Care Provider] - - Critical Care Critical Care Time: No Attestation: On 07/26/19, the high probability of a clinically significant, sudden or life threatening deterioration of the following system(s) required my full and direct attention, intervention and personal management. The time I documented below is in addition to time spent performing reported procedures but includes the following listed in this critical care notation. Medical Decision Making - Medical Records Medical records reviewed: Yes: I reviewed the patient's medical records. - Mario Inquiry Pt receiving controlled substance: No Vital Signs: 07/26/19 23:15 Temperature 99.1 F Temperature Source Oral Pulse Rate [Right] 91 H Respiratory Rate 16 Blood Pressure [Right Arm] 122/83 Blood Pressure Mean [Right Arm] 96 Blood Pressure Source [Right Arm] Automatic Cuff Blood Pressure Position [Right Arm] Sitting 02 Sat by Pulse Oximetry 98 Oxygen Delivery Method Room Air - Lab Data Lab results reviewed: Yes: I reviewed the patient's lab results. Lab Results 07/26/19 23:15: Urine Color Yellow, Urine Appearance Clear, Urine pH 6.0, Ur Specific [address] 1.020, Urine Protein Negative, Urine Glucose (UA) Negative, Urine Ketones Negative, Urine Blood Negative, Urine Nitrate Negative, Urine Bilirubin Negative, Urine Urobilinogen 0.2, Ur Leukocyte Esterase Trace, Urine WBC 3-5, Ur Squamous Epith Cells 10-20 07/26/19 23:15: Urine HCG, Qual Negative Orders (Tests/Meds): ORDERS Category Date Time Status CT abdomen pelvis w con Stat Cat Scan 07/27/19 00:01 Taken - CT Data CT Scan: Abdomen, Pelvis Time Received: 01:[address] Reviewed: Yes: I have viewed the radiologist's interpretation Preliminary Findings: Normal/NAD Nausea/Vomiting/Diarrhea HPI - General Chief complaint: Abdominal Pain Stated complaint: AO 0613 Injured c section,pain in area Time Seen by Provider: 07/26/19 23:35 Mode of Arrival: Ambulatory Source of Information: Patient, Medical Record Limitations: No Limitations Description of Symptoms (Recalled from ER Triage Doc. by RN): Pt states she fell off a see-saw and opened her incision from her and is having vaginal and LLQ pain - History of Present Illness HPI Narrative: having lt sided abd pain and pelvis pain after falling off see-saw MD complaint: abdominal pain Onset (ago): hour(s) Associated Abdominal Pain: Yes Location of pain: LLQ Severity: moderate Context: recent surgery/procedure Associated symptoms: denies other symptoms - Related Data Home Medications Medication Instructions Recorded Confirmed 72-iron 90 mg-folic acid 1 tab PO DAILY 04/29/19 06/15/19 1 mg-DSS 50 mg-dha 300 mg oral pack ferrous sulfate 325 mg (65 mg 325 mg PO DAILY 05/06/19 06/15/19 iron) tablet Previous Rx's Medication Instructions Recorded medroxyprogesterone 150 mg/mL 150 mg IM [id number] #1 ml 06/01/19 intramuscular suspension Allergies Allergy/AdvReac Type Severity Reaction Status Date / Time No Known Allergies Allergy Verified 06/15/19 10:14 [facility] History - Hepatitis A Screen Drug use history?: No High risk sexual behaviors?: No History of sexually transmitted infection?: No Currently employed?: No Childcare worker?: No Do you have indoor plumbing?: Yes Do you have electricity?: Yes Attestation statement:: This patient has been screened for Hepatitis A risk factors. I have reviewed the patient's past medical history: Yes Medical History: Reports:: Gastroesophageal Reflux Disease(GERD) Denies:: Cancer, Diabetes Mellitus Type 1, Ashley
[2019-07-27 01:16] VITALS: BP 125/79; PULSE 61; RESP 16; TEMP 36.7; O2SAT 98
== END 2019-07-27 01:18 | disposition home or self-care (01) ==
PROVIDERS: Emergency Provider Emergency Medicine
DX: R10.32 Left lower quadrant pain (principal); K21.9 Gastro-esophageal reflux disease without esophagitis; F17.210 Nicotine dependence, cigarettes, uncomplicated
CPT/HCPCS: 74177; 81001; 81025; 99282; Q9967

== ENCOUNTER 2022-01-04 21:57 | Emergency (ER) | payer OTHER, SELFPAY ==
[2022-01-04 22:01] VITALS: BP 126/71; PULSE 80; RESP 19; TEMP 37; O2SAT 97; BMI 39.2
[2022-01-04 22:16] VITALS: BMI 39.2
[2022-01-04 22:21] LABS: Microscopic, Urine URINE MICROSCOPIC (MICROSCOPIC)
[2022-01-04 22:23] LABS: Appearance,Urine CLEAR (Clear); Bilirubin,Urine Negative (Negative); Blood, Urine Negative (Negative); Color,Urine YELLOW (Yellow); Glucose,Urine (UA) Negative (Negative); Ketones,Urine Negative (Negative); Leukocyte Esterase,Urine Negative (Negative); Nitrate,Urine Negative (Negative); Protein,Urine Negative (Negative); Specific Gravity, Urine >= 1.030 (1.005-1.030); Urobilinogen,Urine 0.2 EU/dl (0.2)
[2022-01-04 22:27] LABS: Urine Pregnancy, HCG Qual. Positive (Negative)
[2022-01-04 22:39] LABS: Bacteria,Urine 1+ /lpf; Mucus,Urine 1+ /lpf
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
[2022-01-04 23:19] LABS: Chloride 105 mmol/L (98-107); Potassium 4.1 mmoL/L (3.5-5.1); Sodium 140 mmol/L (136-145)
[2022-01-04 23:21] LABS: Basophils # 0.1 K/mm3 (0-0.2); Eosinophils # 0.2 K/mm3 (0.0-0.4); Eosinophils % 1.6 % (0.1-12.0); Hematocrit 43.3 % (37.0-47.0); Hemoglobin 14.1 g/dL (12.2-16.2); Lymphocytes # 2.9 K/mm3 (0.7-4.5); Lymphocytes % 23.8 % (10-50); Mean Corpuscular HGB Conc 32.6 g/dL (31.8-35.4); Mean Corpuscular Hemoglobin 28.5 pg (27.0-31.2); Mean Corpuscular Volume 87.2 fl (81-99); Mean Platelet Volume 9.6 fl (7.4-10.4); Monocytes # 0.5 K/mm3 (0.1-1.0); Monocytes % 4.5 % (1.7-9.3); Neutrophils # 8.3 K/mm3 (1.8-7.8); Neutrophils % 69.1 % (37.0-80.0); Platelet Count 292 K/mm3 (142-424); Red Blood Count 4.96 M/mm3 (4.20-5.40); Red Cell Distribution Width 13.9 % (11.5-17.5)
[2022-01-04 23:22] LABS: Alanine Aminotransferase 30 U/L (12-78); Albumin Level 4.2 g/dl (3.5-5.0); Albumin/Globulin Ratio 1.2 (1.1-1.8); Alkaline Phosphatase 102 U/L (38-126); Anion Gap 13.1 mEq/L (5-15); Aspartate Amino Transferase 26 U/L (14-36); Bilirubin,Total 0.2 mg/dl (0.2-1.3); Blood Urea Nitrogen 12 mg/dl (7-17); Carbon Dioxide 26 mmol/L (22.0-30.0); Creatinine Clearance Estimated 219 mL/min (50-200); Estimated Glomerular Filt Rate 105 ml/min (>60); GFR (African American) 127 ML/MIN (>60); Globulin 3.6 g/dL (1.3-3.2); Total Protein,Serum 7.8 g/dl (6.3-8.2)
[2022-01-04 23:23] LABS: Calcium 9.6 mg/dl (8.4-10.2); Glucose 96 mg/dl (74-100)
[2022-01-04 23:39] LABS: HCG,Quantitative 152 mIU/ml (0-5.42)
--- NOTE | 2022-01-04 23:47 | PC.NURSE ---
Dr. Mckeon s/w Dr. Sanchez (on-call OB)
[2022-01-05] VITALS: BP 128/80; PULSE 75; RESP 17; TEMP 37; O2SAT 98
--- NOTE | 2022-01-05 07:57 | PC.NURSE ---
spoke with radiology who gave me an appt time for transvaginal ultrasound today at 12:30 pm. Attempted to call pt to notify her of appt time, no answer, voicemail left requesting a return phone call.
--- NOTE | 2022-01-05 08:05 | PC.NURSE ---
spoke with pt at this time, notified her of appt time for ultrasound
== END 2022-01-05 00:10 | disposition home or self-care (01) ==
PROVIDERS: Emergency Provider Emergency Medicine
DX: O26.899 Other specified pregnancy related conditions, unspecified trimester (principal); Z79.899 Other long term (current) drug therapy
CPT/HCPCS: 80053; 81001; 81025; 84702; 85025; 99283

== ENCOUNTER → 2022-01-05 11:56 | Outpatient (CLI) | payer OTHER, SELFPAY ==
--- NOTE | 2022-01-05 12:01 | US_ITS ---
FINAL REPORT CLINICAL HISTORY: EARLY PREG, PELVIC PAIN. CALL RESULTS TO DR. SANCHEZ FINDINGS: ULTRASOUND TRANSVAGINAL Sonographic images of the pelvis were obtained. There is no intrauterine . The endometrium measures 10 mm which is normal. The left ovary measures 3.2 cm and is normal. The right ovary is enlarged at 4.5 cm. There is an area of peripheral vascularity in the right ovary. A right ectopic is not excluded. No free fluid is visualized. IMPRESSION: No evidence of intrauterine . Enlarged right ovary with an area of increased vascularity. Ectopic is not excluded. Dr. Sanchez was notified of these findings at 4:20 p.m. on 01/05/2022. Reviewed, Interpreted and Dictated by Daniele Jaime III, MD Transcribed by Marian Littlejohn Authenticated and [facility]
== END ==
PROVIDERS: Visit Provider Emergency Medicine
DX: Z34.90 Encounter for supervision of normal pregnancy, unspecified, unspecified trimester (principal); R10.2 Pelvic and perineal pain
CPT/HCPCS: 76817

== ENCOUNTER → 2022-01-07 14:18 | Outpatient (CLI) | payer OTHER, SELFPAY ==
[2022-01-07 15:16] LABS: HCG,Quantitative 353 mIU/ml (0-5.42)
== END ==
PROVIDERS: Visit Provider Emergency Medicine
DX: Z32.01 Encounter for pregnancy test, result positive (principal)
CPT/HCPCS: 36415; 84702

== ENCOUNTER → 2022-01-24 15:11 | Outpatient (CLI) | payer OTHER, SELFPAY ==
[2022-01-24 16:23] LABS: Basophils % 0.3 % (0.1-2.0); Eosinophils # 0.1 K/mm3 (0.0-0.4); Eosinophils % 1.2 % (0.1-12.0); Hematocrit 42.7 % (37.0-47.0); Hemoglobin 14.2 g/dL (12.2-16.2); Lymphocytes % 19.6 % (10-50); Mean Corpuscular HGB Conc 33.2 g/dL (31.8-35.4); Mean Corpuscular Hemoglobin 28.9 pg (27.0-31.2); Mean Corpuscular Volume 87.1 fl (81-99); Mean Platelet Volume 10.1 fl (7.4-10.4); Monocytes # 0.4 K/mm3 (0.1-1.0); Monocytes % 4.1 % (1.7-9.3); Neutrophils # 7.5 K/mm3 (1.8-7.8); Neutrophils % 74.8 % (37.0-80.0); Platelet Count 275 K/mm3 (142-424); Red Cell Distribution Width 13.8 % (11.5-17.5)
[2022-01-26 13:15] LABS: HIV Screen 4th Generation wRfx Non Reactive (Non Reactive); Rapid Plasma Reagin Ab Titer Non Reactive (NonRea<1:1); Rubella Antibodies, IgG 1.76 index (Immune >0.99)
[2022-02-12 19:43] LABS: Hepatitis B Surface Antigen NEGATIVE; Hepatitis C Antibody <0.1
== END ==
PROVIDERS: Visit Provider Obstetrics & Gynecology
DX: Z34.90 Encounter for supervision of normal pregnancy, unspecified, unspecified trimester (principal)
CPT/HCPCS: 36415; 85025; 86592; 86703; 86762; 86850; 87340; 87380; G0432

== ENCOUNTER 2022-03-25 21:13 | Emergency (ER) | payer OTHER, SELFPAY ==
[2022-03-25] VITALS (7 sets, daily range): BP systolic 113–136; BP diastolic 66–82; PULSE 99–115; RESP 17; TEMP 36.8; O2SAT 98–100; BMI 35.5; BMI 46.9
[2022-03-25 21:53] LABS: Coronavirus 19, PCR Not Detected (NotDetected); Influenza A, PCR Not Detected (NotDetected); Influenza B, PCR Not Detected (NotDetected); Microscopic, Urine URINE MICROSCOPIC (MICROSCOPIC)
[2022-03-25 21:54] LABS: Appearance,Urine SL CLOUDY (Clear); Bilirubin,Urine Negative (Negative); Blood, Urine Negative (Negative); Color,Urine DK YELLOW (Yellow); Glucose,Urine (UA) Negative (Negative); Ketones,Urine TRACE (Negative); Leukocyte Esterase,Urine Negative (Negative); Nitrate,Urine Negative (Negative); PH,Urine 7.5 (5.0-8.5); Protein,Urine Negative (Negative); Urobilinogen,Urine 0.2 EU/dl (0.2)
[2022-03-25 21:56] LABS: Urine Pregnancy, HCG Qual. Positive (Negative)
[2022-03-25 22:02] LABS: Alanine Aminotransferase 38 U/L (12-78); Albumin/Globulin Ratio 1.1 (1.1-1.8); Alkaline Phosphatase 81 U/L (38-126); Anion Gap 9.1 mEq/L (5-15); Aspartate Amino Transferase 30 U/L (14-36); Bilirubin,Total 0.5 mg/dl (0.2-1.3); Blood Urea Nitrogen 9 mg/dl (7-17); Calcium 9.3 mg/dl (8.4-10.2); Carbon Dioxide 22 mmol/L (22.0-30.0); Chloride 108 mmol/L (98-107); Creatinine Clearance Estimated 159 mL/min (50-200); Estimated Glomerular Filt Rate 154 ml/min (>60); GFR (African American) 187 ML/MIN (>60); Globulin 3.7 g/dL (1.3-3.2); Glucose 87 mg/dl (74-100); Potassium 4.1 mmoL/L (3.5-5.1); Sodium 135 mmol/L (136-145); Total Protein,Serum 7.7 g/dl (6.3-8.2)
[2022-03-25 22:04] LABS: Basophils % 0.3 % (0.1-2.0); Eosinophils # 0.1 K/mm3 (0.0-0.4); Eosinophils % 0.6 % (0.1-12.0); Hematocrit 39.8 % (37.0-47.0); Hemoglobin 13.8 g/dL (12.2-16.2); Lymphocytes # 0.8 K/mm3 (0.7-4.5); Lymphocytes % 5.4 % (10-50); Mean Corpuscular HGB Conc 34.6 g/dL (31.8-35.4); Mean Corpuscular Hemoglobin 29.4 pg (27.0-31.2); Mean Platelet Volume 9.9 fl (7.4-10.4); Monocytes # 0.5 K/mm3 (0.1-1.0); Neutrophils # 13.5 K/mm3 (1.8-7.8); Neutrophils % 90.8 % (37.0-80.0); Platelet Count 278 K/mm3 (142-424); Red Blood Count 4.68 M/mm3 (4.20-5.40); Red Cell Distribution Width 13.9 % (11.5-17.5); White Blood Count 14.9 K/mm3 (4.8-10.8)
[2022-03-25 22:07] LABS: C-Reactive Protein 33.3 mg/L (0-4); MANUAL DIFFERENTIAL MANUAL DIFFERENTIAL (MANUAL DIFF)
--- NOTE | 2022-03-25 22:15 | PC.NURSE ---
Pt provided with warm blanket
[2022-03-25 22:16] LABS: Lymphocytes % 5 % (10-50); Monocytes % 1 % (2-9); Neutrophils % 94 % (42-76); RBC Morphology Normal; Total Cells Counted 100
[2022-03-25 22:17] LABS: Platelet Estimate Normal
[2022-03-25 22:21] LABS: Procalcitonin 0.058 ng/mL (0.0-2.0)
[2022-03-25 22:21] LABS: Bacteria,Urine 3+ /lpf
[2022-03-25 22:32] LABS: Erythrocyte Sedimentation Rate 40 mm/hr (0-20)
[2022-03-25 22:45] LABS: HCG,Quantitative 37548 mIU/ml (0-5.42)
--- NOTE | 2022-03-26 00:32 | PC.NURSE ---
pt continues to report nausea and is currently dry heaving. MD notified and instructed to give IV 4mg Zofran
[2022-03-26 00:38] VITALS: BP 112/65; PULSE 103; O2SAT 99
[2022-03-26 00:45] VITALS: PULSE 106; O2SAT 98
--- NOTE | 2022-03-26 01:01 | HMH.EDABDPAI ---
Discharge Plan Disposition Patient Disposition: Home, Self-Care Prescriptions Prescriptions: New cephalexin [cephalexin] 500 mg capsule 500 mg PO TID Qty: 21 0RF No Action promethazine 25 mg tablet 25 mg PO TID PRN (Reason: nausea and vomiting) Qty: 20 1RF sertraline 25 mg tablet 25 mg PO DAILY Classic 28 mg iron- 800 mcg tablet 1 tab PO DAILY Referrals Follow up/Referrals: Provider,Referral, MD [Primary Care Provider] - See instructions Clinical Impressions Clinical Impression: UTI (urinary tract infection), Instructions Patient Instructions: DI for -- Discomforts and Remedies Discharge ED Provider: Linda (ED)Flash Abdominal Pain HPI General Chief Complaint: Abdominal Pain Stated Complaint: N/V Time Seen by Provider: 03/26/22 01:01 Mode of Arrival: Family Vehicle Source of Information: Patient and Medical Record Limitations: No Limitations Description of Symptoms (Recalled from ER Triage Doc. by RN): Pt c/o bilateral low abd pain that has been intermittent for a few days, but today has worsened. States she has felt weak and dizzy at times, though not currently. She is 15 wk , no bleeding. She also c/o nausea and vomiting, no diarrhea. Denies fever or chills. She is with full term delivery. OBGYN is Dr. Liz and she performed an in office transvaginal u/s on 02/21/22 that showed viable IUP measuring 11wk 1d & FHR 173. History of Present Illness HPI narrative: has abd pain and weakness and vomiting and is 15 weeks preg complaint: abdominal pain Onset (ago): day(s) Severity: moderate Associated symptoms: denies other symptoms Related Data Home Medications Medication Instructions Recorded Confirmed vits no.126-ferrous fum 1 tab PO DAILY vitamin 03/25/22 03/25/22 28 mg iron-folic acid 800 mcg tablet (Classic ) sertraline 25 mg tablet 25 mg PO DAILY Depression 03/25/22 03/25/22 Previous Rx's Medication Instructions Recorded promethazine 25 mg tablet 25 mg PO TID PRN nausea and 02/21/22 vomiting #20 tabs cephalexin 500 mg capsule 500 mg PO TID #21 caps 03/26/22 Allergies Allergy/AdvReac Type Severity Reaction Status Date / Time No Known Allergies Allergy Verified 02/21/22 13:48 [facility] Disclaimer: The information contained in this section may have been updated after the patient was seen, as this information can be updated by other users. Medical History (Updated 03/26/22 @ 01:41 by Flash Mckeon (ED)MD) Depression Depression affecting , antepartum Endometriosis Maternal obesity affecting , antepartum Nausea and vomiting Obesity (BMI 35.0-39.9 without comorbidity) with 11 completed weeks gestation Rh negative status during Surgical History History of History of wisdom tooth extraction Social History Smoking Status: Current every day smoker tobacco type: cigarettes packs per day: 1 second hand exposure: Yes alcohol intake: never substance use type: denies use current occupational status: unemployed Travel in the last 8 weeks: None household members: family housing: house current occupational exposures/hazards: No caffeine: Yes ROS Obtained: Yes All systems reviewed & no additional complaints except as documented Physical Exam General General appearance: alert Head Head exam: normocephalic Eye Eye exam: Present PERRL and EOMI ENT ENT exam: Present mucous membranes moist Neck Neck exam: Present trachea midline Respiratory Respiratory exam: Present normal lung sounds bilaterally; Absent respiratory distress Cardiovascular Cardiovascular exam: Present regular rate Abdominal Exam Abdominal exam: Present soft Extremities Exam Extremities exam: Present full ROM Back Exam B
[2022-03-26 01:38] VITALS: BP 110/62; PULSE 102; RESP 18; TEMP 36.6; O2SAT 99
== END 2022-03-26 01:48 | disposition home or self-care (01) ==
PROVIDERS: Emergency Provider Emergency Medicine
DX: O23.42 Unspecified infection of urinary tract in pregnancy, second trimester (principal); O26.892 Other specified pregnancy related conditions, second trimester; R11.2 Nausea with vomiting, unspecified; O99.342 Other mental disorders complicating pregnancy, second trimester; F32.A Depression, unspecified; O36.0121 Maternal care for anti-D [Rh] antibodies, second trimester, fetus 1; O99.891 Other specified diseases and conditions complicating pregnancy; Z3A.15 15 weeks gestation of pregnancy; O99.212 Obesity complicating pregnancy, second trimester; O99.332 Smoking (tobacco) complicating pregnancy, second trimester; F17.210 Nicotine dependence, cigarettes, uncomplicated; Z20.822 Contact with and (suspected) exposure to COVID-19
CPT/HCPCS: 80053; 81001; 81025; 84145; 84702; 85007; 85025; 85651; 86140; 87086; 96361; 96374; 96375; 99285; C9803; J0696; J2405; U0003; U0005

== ENCOUNTER 2022-05-04 17:26 | Emergency (ER) | payer OTHER, SELFPAY ==
--- NOTE | 2022-05-04 17:36 | EXP.UTC ---
Discharge Plan Disposition Patient Disposition: Home, Self-Care Prescriptions Prescriptions: No Action promethazine 25 mg tablet 25 mg PO TID PRN (Reason: nausea and vomiting) Qty: 20 1RF metronidazole 0.75 % (37.5mg/5 gram) gel 1 appful vaginal HS 5 Days Qty: 70 0RF Classic 28 mg iron- 800 mcg tablet 1 tab PO DAILY Referrals Follow up/Referrals: Cassie Liz DO [Primary Care Provider] - See instructions Activity Restrictions/Add. Instructions Additional Instructions/Restrictions: Your abdominal exam is benign. You currently are not having contractions. You do not have a large amount of fluid loss from history and there is retained amniotic fluid on bedside ultrasound. Limited bedside ultrasound shows single intrauterine living that is consistent with dates with heart rate of 165. Positive movements. Your symptoms are not consistent with pelvic inflammatory disease or other emergent medical condition associated with your clear-colored discharge. The discharge is most likely physiologic in the setting of later date in . Your abdominal discomfort and comfort are likely [place] Do[place] contractions and your most likely not an labor at the moment as this has not been regular and increasing in frequency and intensity. Also had no loss of blood. Even cleared from an emergency standpoint as I am not concerned about emergent medical condition at this point. You are stable to go to OB for toco monitoring and any further evaluation that they might want to do for you at this point. Clinical Impressions Clinical Impression: , Irregular contractions, Vaginal discharge in Discharge ED Provider: Deshaun Todd [facility] [place] HPI General Chief complaint: OB/Uterine Contractions Stated complaint: 20 WK Preg ABD&Back Pain with dischargbe Time Seen by Provider: 05/04/22 17:36 History of Present Illness Provider Complaint: She was transferred to the er due to her being 20 weeks , having abdominal pain and vaginal discharge. Related Data Home Medications Medication Instructions Recorded Confirmed vits no.126-ferrous fum 1 tab PO DAILY vitamin 03/25/22 04/05/22 28 mg iron-folic acid 800 mcg tablet (Classic ) Previous Rx's Medication Instructions Recorded promethazine 25 mg tablet 25 mg PO TID PRN nausea and 02/21/22 vomiting #20 tabs metronidazole 0.75 % (37.5 mg/5 1 appful vaginal HS 5 days #70 04/10/22 gram) vaginal gel grams Allergies Allergy/AdvReac Type Severity Reaction Status Date / Time No Known Allergies Allergy Verified 04/05/22 15:44 [facility] Disclaimer: The information contained in this section may have been updated after the patient was seen, as this information can be updated by other users. Medical History Depression Depression affecting , antepartum Endometriosis Maternal obesity affecting , antepartum Nausea and vomiting Obesity (BMI 35.0-39.9 without comorbidity) Rh negative status during Screening for genetic disease carrier status Vaginitis Surgical History History of History of wisdom tooth extraction Social History Smoking Status: Current every day smoker tobacco type: cigarettes packs per day: 1 second hand exposure: Yes alcohol intake: never substance use type: denies use current occupational status: other Travel in the last 8 weeks: None household members: family housing: house current occupational exposures/hazards: No caffeine: Yes ROS Obtained: Yes All systems reviewed & no additional complaints except as documented Constitutional Constitutional: Denies chills and Denies fever(s) Eyes Eyes: Denies eye discharge ENT Ears, Nose, Mouth, and Throat: De
--- NOTE | 2022-05-04 17:50 | PC.NURSE ---
heart tones 165 via US
[2022-05-04 17:52] VITALS: BP 130/63; PULSE 91; RESP 17; TEMP 36.8; O2SAT 96; BMI 35.5
--- NOTE | 2022-05-04 17:55 | HMH.EDGENADL ---
Discharge Plan Disposition Patient Disposition: Home, Self-Care Prescriptions Prescriptions: No Action promethazine 25 mg tablet 25 mg PO TID PRN (Reason: nausea and vomiting) Qty: 20 1RF metronidazole 0.75 % (37.5mg/5 gram) gel 1 appful vaginal HS 5 Days Qty: 70 0RF Classic 28 mg iron- 800 mcg tablet 1 tab PO DAILY Referrals Follow up/Referrals: Cassie Liz DO [Primary Care Provider] - See instructions Activity Restrictions/Add. Instructions Additional Instructions/Restrictions: Your abdominal exam is benign. You currently are not having contractions. You do not have a large amount of fluid loss from history and there is retained amniotic fluid on bedside ultrasound. Limited bedside ultrasound shows single intrauterine living that is consistent with dates with heart rate of 165. Positive movements. Your symptoms are not consistent with pelvic inflammatory disease or other emergent medical condition associated with your clear-colored discharge. The discharge is most likely physiologic in the setting of later date in . Your abdominal discomfort and comfort are likely [place] Do[place] contractions and your most likely not an labor at the moment as this has not been regular and increasing in frequency and intensity. Also had no loss of blood. Even cleared from an emergency standpoint as I am not concerned about emergent medical condition at this point. You are stable to go to OB for toco monitoring and any further evaluation that they might want to do for you at this point. Clinical Impressions Clinical Impression: , Irregular contractions, Vaginal discharge in Discharge ED Provider: Deshaun Todd General Adult HPI General Stated complaint: 20 WK Preg ABD&Back Pain with dischargbe Time Seen by Provider: 05/04/22 17:36 History of Present Illness HPI narrative: Patient is a 21-year-old G2, P1 who is 20 weeks 6 days by LMP and for extremis or ultrasound presents today with clear vaginal discharge and abdominal cramping. She states she has not had any large loss of fluid however her clear vaginal discharge this is a slightly thicker than it normally is at this time. No fevers or chills. Patient has positive movements no loss of blood contractions have not been increasing in frequency or intensity and have been once a day over the last week. She states she did not have any of these abnormalities with her first . Which is why she is here in the emergency department today. She currently is not having any abdominal pain or significant contractions. She denies any urinary symptoms frequency urgency or dysuria. She is having some back discomfort associate with this as well. Related Data Home Medications Medication Instructions Recorded Confirmed vits no.126-ferrous fum 1 tab PO DAILY vitamin 03/25/22 04/05/22 28 mg iron-folic acid 800 mcg tablet (Classic ) Previous Rx's Medication Instructions Recorded promethazine 25 mg tablet 25 mg PO TID PRN nausea and 02/21/22 vomiting #20 tabs metronidazole 0.75 % (37.5 mg/5 1 appful vaginal HS 5 days #70 04/10/22 gram) vaginal gel grams Allergies Allergy/AdvReac Type Severity Reaction Status Date / Time No Known Allergies Allergy Verified 04/05/22 15:44 [facility] Disclaimer: The information contained in this section may have been updated after the patient was seen, as this information can be updated by other users. Medical History (Updated 05/04/22 @ 17:55 by Deshaun Todd MD) Depression Depression affecting , antepartum Endometriosis Maternal obesity affecting , antepartum Nausea and vomiting Obesity (BMI 35.0-39.9 without comorbidity) Rh negative status during Screening for genetic disease carrier status Vaginitis Surgical History Hist
--- NOTE | 2022-05-04 18:01 | PC.NURSE ---
spoke with OB who stated they would monitor the patient on the floor now they emergencies have been ruled out
--- NOTE | 2022-05-04 18:05 | PC.NURSE ---
Chato gave hand off report to ANNIE Jacob
[2022-05-04 18:10] VITALS: BP 130/63; PULSE 91; RESP 17; TEMP 36.8; O2SAT 97
== END 2022-05-04 18:12 | disposition home or self-care (01) ==
PROVIDERS: Emergency Provider Student in an Organized Health Care Education/Training Program; PCP Obstetrics & Gynecology
DX: O26.892 Other specified pregnancy related conditions, second trimester (principal); N89.8 Other specified noninflammatory disorders of vagina; O62.4 Hypertonic, incoordinate, and prolonged uterine contractions; Z3A.20 20 weeks gestation of pregnancy
CPT/HCPCS: 99283; 99284

== ENCOUNTER 2022-05-04 18:06 | Outpatient (CLI) | payer OTHER, SELFPAY ==
[2022-05-04 18:29] VITALS: BMI 28.4
[2022-05-04 18:30] VITALS: BMI 28.4
[2022-05-04 19:08] LABS: Microscopic, Urine URINE MICROSCOPIC (MICROSCOPIC)
[2022-05-04 19:11] LABS: Appearance,Urine CLEAR (Clear); Bilirubin,Urine Negative (Negative); Blood, Urine 1+ (Negative); Color,Urine YELLOW (Yellow); Glucose,Urine (UA) Negative (Negative); Ketones,Urine Negative (Negative); Leukocyte Esterase,Urine Negative (Negative); Nitrate,Urine Negative (Negative); PH,Urine 7.5 (5.0-8.5); Protein,Urine Negative (Negative); Specific Gravity, Urine 1.015 (1.005-1.030); Urobilinogen,Urine 0.2 EU/dl (0.2)
[2022-05-04 19:24] LABS: Amphetamine/Metha Screen,Urine Negative ng/ml (<1000); Bacteria,Urine 1+ /lpf; Benzodiazepines Screen,Urine Negative ng/ml (<200); WBC,Urine Occasional #/hpf (0-3)
[2022-05-04 19:25] LABS: Barbiturates Screen,Urine Negative ng/ml (<200)
[2022-05-04 19:26] LABS: Cannabinoid Screen,Urine Positive ng/ml (<50); Cocaine Screen,Urine Negative ng/ml (<300)
[2022-05-04 19:27] LABS: Methadone Screen,Urine Negative ng/ml (<300); Opiate Screen,Urine Negative ng/ml (<300)
[2022-05-04 19:28] LABS: Phencyclidine Screen,Urine Negative ng/ml (<25)
[2022-05-04 19:45] VITALS: BP 105/61; PULSE 86; RESP 18; TEMP 37.2
== END 2022-05-04 20:30 | disposition home or self-care (01) ==
LOC: OBOUT 18:08 → OB 18:09
PROVIDERS: Visit Provider Obstetrics & Gynecology
DX: O26.892 Other specified pregnancy related conditions, second trimester (principal); Z3A.20 20 weeks gestation of pregnancy
CPT/HCPCS: 80305; 81001; G0463

== ENCOUNTER 2022-05-13 14:18 | Outpatient (CLI) | payer OTHER, SELFPAY ==
[2022-05-13 14:29] VITALS: BMI 38.7
[2022-05-13 14:39] VITALS: BP 125/67; PULSE 100; RESP 18; TEMP 37; O2SAT 98; BMI 38.7
[2022-05-13 14:45] LABS: Microscopic, Urine URINE MICROSCOPIC (MICROSCOPIC)
[2022-05-13 14:51] LABS: Appearance,Urine CLEAR (Clear); Bilirubin,Urine Negative (Negative); Blood, Urine Negative (Negative); Color,Urine YELLOW (Yellow); Glucose,Urine (UA) Negative (Negative); Ketones,Urine Negative (Negative); Leukocyte Esterase,Urine 1+ (Negative); Nitrate,Urine Negative (Negative); PH,Urine 7.5 (5.0-8.5); Protein,Urine Negative (Negative); Specific Gravity, Urine 1.015 (1.005-1.030); Urobilinogen,Urine 0.2 EU/dl (0.2)
[2022-05-13 15:00] LABS: Benzodiazepines Screen,Urine Negative ng/ml (<200)
[2022-05-13 15:01] LABS: Amphetamine/Metha Screen,Urine Negative ng/ml (<1000); Barbiturates Screen,Urine Negative ng/ml (<200)
[2022-05-13 15:02] LABS: Cannabinoid Screen,Urine Positive ng/ml (<50)
[2022-05-13 15:03] LABS: Cocaine Screen,Urine Negative ng/ml (<300); Methadone Screen,Urine Negative ng/ml (<300)
[2022-05-13 15:04] LABS: Opiate Screen,Urine Negative ng/ml (<300); Phencyclidine Screen,Urine Negative ng/ml (<25)
[2022-05-13 15:07] LABS: Bacteria,Urine 2+ /lpf
== END 2022-05-13 17:07 | disposition home or self-care (01) ==
LOC: OBOUT 14:20 → OB 14:21
PROVIDERS: Referring Provider Obstetrics & Gynecology; Visit Provider Nurse Practitioner Obstetrics & Gynecology
DX: O26.892 Other specified pregnancy related conditions, second trimester (principal); Z3A.22 22 weeks gestation of pregnancy; M54.50 Low back pain, unspecified; R10.9 Unspecified abdominal pain
CPT/HCPCS: 80305; 81001; 87086; 96365; G0463

== ENCOUNTER 2022-05-22 16:53 | Emergency (ER) | payer OTHER, SELFPAY ==
[2022-05-22 16:55] VITALS: BP 128/70; PULSE 92; RESP 17; TEMP 36.8; O2SAT 97; BMI 37.8
--- NOTE | 2022-05-22 17:05 | HMH.EDGENADL ---
Discharge Plan Disposition Patient Disposition: Home, Self-Care Chief Complaint: Dizziness Prescriptions Prescriptions: No Action Classic 28 mg iron- 800 mcg tablet 1 tab PO DAILY Referrals Follow up/Referrals: Provider,Referral, [Primary Care Provider] - See instructions Activity Restrictions/Add. Instructions Additional Instructions/Restrictions: Follow-up with your OB within the next few days. Return to emergency room department for any other concerns or questions. Clinical Impressions Clinical Impression: Dizziness Discharge ED Provider: Rodrick Barger General Adult HPI General Chief complaint: Dizziness Stated complaint: dizzy,weak, SOA Time Seen by Provider: 05/22/22 16:55 Mode of Arrival: Ambulatory Source of Information: Patient Limitations: No Limitations Description of Symptoms (Recalled from ER Triage Doc. by RN): 21 F, 23 week gestation presents from home with c/o dizziness that has been an ongoing issue. Patient reports she had dizziness with her first , too. She sees Dr. Liz and her last appointment was last week. NAD otherwise. Patient tolerating PO fluids. History of Present Illness HPI narrative: 21-year-old female who is 23 weeks gestation presents from home with lightheadedness that is reportedly happened since her first . She says she is mildly short of breath as well. She does not have any chest pain nausea vomiting headaches. She has no vaginal bleeding or discharge. No dysuria or hematuria. No fever or chills. Related Data Home Medications Medication Instructions Recorded Confirmed vits no.126-ferrous fum 1 tab PO DAILY vitamin 03/25/22 05/22/22 28 mg iron-folic acid 800 mcg tablet (Classic ) Allergies Allergy/AdvReac Type Severity Reaction Status Date / Time No Known Allergies Allergy Verified 05/10/22 15:55 [facility] Disclaimer: The information contained in this section may have been updated after the patient was seen, as this information can be updated by other users. Medical History (Updated 05/22/22 @ 18:44 by Rodrick Barger MD) Depression Depression affecting , antepartum Endometriosis Maternal obesity affecting , antepartum Nausea and vomiting Obesity (BMI 35.0-39.9 without comorbidity) Rh negative status during Screening for genetic disease carrier status Vaginitis Surgical History History of History of wisdom tooth extraction Social History Smoking Status: Current every day smoker tobacco type: cigarettes packs per day: 1 second hand exposure: Yes alcohol intake: never substance use type: denies use current occupational status: unemployed Travel in the last 8 weeks: None household members: family housing: house current occupational exposures/hazards: No caffeine: Yes ROS Obtained: Yes All systems reviewed & no additional complaints except as documented Constitutional Constitutional: Reports fatigue Eyes Eyes: Denies dry eyes ENT Ears, Nose, Mouth, and Throat: Reports dizziness Cardiovascular Cardiovascular: Denies diaphoresis and Denies dyspnea Respiratory Respiratory: Denies dyspnea Gastrointestinal Gastrointestingal: Denies constipation Genitourinary Female Genitourinary: Denies hematuria Musculoskeletal Musculoskeletal: Denies joint swelling Integumentary/Breasts Skin/Breast: Denies dry skin Neurologic Neurologic: Reports dizziness Endocrine Endocrine: Reports fatigue Hematologic/Lymphatic Henatologic/Lymphatic: Denies easy bleeding Physical Exam General General appearance: alert and in no apparent distress Eye Eye exam: Present PERRL and EOMI ENT ENT exam: Present normal exam and normal oropharynx Neck Neck exam: Present normal inspection Chest Chest inspection: Present symmetric chest w
[2022-05-22 17:16] LABS: Microscopic, Urine URINE MICROSCOPIC (MICROSCOPIC)
[2022-05-22 17:19] LABS: Appearance,Urine CLEAR (Clear); Basophils % 0.3 % (0.1-2.0); Bilirubin,Urine Negative (Negative); Blood, Urine Negative (Negative); Color,Urine YELLOW (Yellow); Eosinophils # 0.2 K/mm3 (0.0-0.4); Eosinophils % 1.3 % (0.1-12.0); Glucose,Urine (UA) Negative (Negative); Hematocrit 36.8 % (37.0-47.0); Ketones,Urine Negative (Negative); Leukocyte Esterase,Urine Negative (Negative); Lymphocytes # 2.3 K/mm3 (0.7-4.5); Lymphocytes % 16.4 % (10-50); Mean Corpuscular HGB Conc 32.6 g/dL (31.8-35.4); Mean Corpuscular Hemoglobin 29.3 pg (27.0-31.2); Mean Platelet Volume 9.4 fl (7.4-10.4); Monocytes # 0.5 K/mm3 (0.1-1.0); Monocytes % 3.3 % (1.7-9.3); Neutrophils # 11.1 K/mm3 (1.8-7.8); Neutrophils % 78.7 % (37.0-80.0); Nitrate,Urine Negative (Negative); PH,Urine 6.5 (5.0-8.5); Platelet Count 344 K/mm3 (142-424); Protein,Urine Negative (Negative); Red Blood Count 4.09 M/mm3 (4.20-5.40); Red Cell Distribution Width 13.2 % (11.5-17.5); Urobilinogen,Urine 0.2 EU/dl (0.2); White Blood Count 14.1 K/mm3 (4.8-10.8)
--- NOTE | 2022-05-22 17:19 | ECG_ITS ---
APPROVED REPORT Exam: Resting ECG HR:95 bpm ECG Measurements Heart Rate 95 AXES HI 168 P 43 QRSd 70 QRS 66 QT 329 T 51 QTc 382 Conclusion SINUS RHYTHM WITH SINUS ARRHYTHMIA LOW QRS VOLTAGE IN PRECORDIAL LEADS [QRS DEFLECTION < 1.0 mV IN CHEST LEADS] BORDERLINE ECG UNCONFIRMED REPORT Electronically signed by : Lazaro Solares MD 05/25/2022 09:37:28
[2022-05-22 17:28] LABS: Alanine Aminotransferase 32 U/L (12-78); Albumin Level 3.6 g/dl (3.5-5.0); Albumin/Globulin Ratio 1.1 (1.1-1.8); Alkaline Phosphatase 100 U/L (38-126); Anion Gap 9.9 mEq/L (5-15); Aspartate Amino Transferase 22 U/L (14-36); Bilirubin,Total 0.3 mg/dl (0.2-1.3); Blood Urea Nitrogen 4 mg/dl (7-17); Calcium 8.9 mg/dl (8.4-10.2); Carbon Dioxide 19 mmol/L (22.0-30.0); Chloride 107 mmol/L (98-107); Creatinine Clearance Estimated 370 mL/min (50-200); Estimated Glomerular Filt Rate 200 ml/min (>60); GFR (African American) 242 ML/MIN (>60); Globulin 3.4 g/dL (1.3-3.2); Glucose 106 mg/dl (74-100); Potassium 3.9 mmoL/L (3.5-5.1); Sodium 132 mmol/L (136-145)
[2022-05-22 17:44] LABS: Troponin I < 0.01 ng/ml (0.00-0.034)
[2022-05-22 17:54] LABS: Bacteria,Urine 1+ /lpf; Squamous Epithelial Cell,Urine Occasional #/hpf (0-5); WBC,Urine Occasional #/hpf (0-3)
[2022-05-22 18:57] VITALS: BP 119/75; PULSE 76; RESP 17; TEMP 36.8; O2SAT 98
== END 2022-05-22 18:59 | disposition home or self-care (01) ==
PROVIDERS: Emergency Provider Emergency Medicine
DX: O99.352 Diseases of the nervous system complicating pregnancy, second trimester (principal); O99.332 Smoking (tobacco) complicating pregnancy, second trimester; R42 Dizziness and giddiness; Z3A.23 23 weeks gestation of pregnancy; F17.210 Nicotine dependence, cigarettes, uncomplicated
CPT/HCPCS: 80053; 81001; 84484; 85025; 93005; 96360; 99284; 99285

== ENCOUNTER → 2022-05-24 13:25 | Outpatient (CLI) | payer OTHER, SELFPAY ==
--- NOTE | 2022-05-24 13:25 | US_ITS ---
FINAL REPORT CLINICAL HISTORY: 20 week anatomy scan FINDINGS: Note is made this was a difficult scan. There is a single live intrauterine gestation. Presentation is cephalic. The cervix is closed and measures 3.9 cm. Placenta is posterior, grade 1. movement is noted. Three-vessel cord with satisfactory umbilical cord insertion. Four-chamber heart is noted. brain and ventricles are unremarkable. Chest and diaphragm are unremarkable. ABDOMEN: Both kidneys are unremarkable. Stomach is unremarkable. SPINE: No anomalies identified. Both arms and legs noted. AMNIOTIC FLUID: Appropriate amount. MEASUREMENTS: ULTRASOUND AGE: 24 weeks 0 days. GESTATION AGE: 23 weeks 5 days. ESTIMATED WEIGHT: 664 g GROWTH PERCENTILE: 62% LMP percentile BPD: 5.8 cm corresponding with 23 weeks 6 days. OFD: 7.4 cm corresponding with 23 weeks 5 days. HC: 21 cm corresponding with 23 weeks 1 days. AC: 19.5 cm corresponding with 24 weeks 2 days. FL: 4.4 cm corresponding with 24 weeks 3 days. CEREBELLUM: 2.4 cm corresponding with 23 weeks 3 days. HUMERUS: 4.0 cm corresponding with 24 weeks 4 days. HC/AC: 1.08 CI: 78% FL/BPD: 75% FL/AC: 22% IMPRESSION: Single living IUP with an ultrasound age of 24 weeks 0 days. No gross anomalies noted. Reviewed, Interpreted and Dictated by Daniele Jaime III, MD Transcribed by Abby Hemphill Authenticated and [facility]
== END ==
PROVIDERS: PCP Obstetrics & Gynecology; Visit Provider Obstetrics & Gynecology
DX: Z34.90 Encounter for supervision of normal pregnancy, unspecified, unspecified trimester (principal); Z3A.20 20 weeks gestation of pregnancy
CPT/HCPCS: 76811

== ENCOUNTER 2022-06-09 23:03 | Outpatient (CLI) | payer OTHER, SELFPAY ==
[2022-06-09 23:08] VITALS: BMI 39.2
[2022-06-09 23:22] LABS: Microscopic, Urine URINE MICROSCOPIC (MICROSCOPIC)
[2022-06-09 23:23] VITALS: BP 129/63; PULSE 104; RESP 18; TEMP 36.9; O2SAT 100; BMI 39.2
[2022-06-09 23:27] LABS: Appearance,Urine CLEAR (Clear); Bilirubin,Urine Negative (Negative); Blood, Urine TRACE-I (Negative); Color,Urine YELLOW (Yellow); Glucose,Urine (UA) Negative (Negative); Ketones,Urine Negative (Negative); Leukocyte Esterase,Urine 1+ (Negative); Nitrate,Urine Negative (Negative); Protein,Urine Negative (Negative); Specific Gravity, Urine 1.015 (1.005-1.030); Urobilinogen,Urine 0.2 EU/dl (0.2)
[2022-06-09 23:40] LABS: Barbiturates Screen,Urine Negative ng/ml (<200); Benzodiazepines Screen,Urine Negative ng/ml (<200)
[2022-06-09 23:41] LABS: Amphetamine/Metha Screen,Urine Negative ng/ml (<1000)
[2022-06-09 23:42] LABS: Cannabinoid Screen,Urine Negative ng/ml (<50); Cocaine Screen,Urine Negative ng/ml (<300)
[2022-06-09 23:43] LABS: Methadone Screen,Urine Negative ng/ml (<300)
[2022-06-09 23:44] LABS: Opiate Screen,Urine Negative ng/ml (<300); Phencyclidine Screen,Urine Negative ng/ml (<25)
[2022-06-09 23:53] LABS: Bacteria,Urine 4+ /lpf
== END 2022-06-09 23:55 | disposition home or self-care (01) ==
LOC: OBOUT 23:04 → OB 23:05
PROVIDERS: Visit Provider Obstetrics & Gynecology
DX: O36.8120 Decreased fetal movements, second trimester, not applicable or unspecified (principal); Z3A.26 26 weeks gestation of pregnancy
CPT/HCPCS: 59025; 80305; 81001; 87086; G0463

== ENCOUNTER 2022-06-25 13:30 | Outpatient (CLI) | payer OTHER, SELFPAY ==
[2022-06-25 14:04] LABS: Glucose,Fasting 85 mg/dl (74-100)
[2022-06-25 14:14] LABS: Basophils % 0.2 % (0.1-2.0); Eosinophils # 0.2 K/mm3 (0.0-0.4); Eosinophils % 1.3 % (0.1-12.0); Hematocrit 34.4 % (37.0-47.0); Hemoglobin 11.5 g/dL (12.2-16.2); Lymphocytes # 2.1 K/mm3 (0.7-4.5); Lymphocytes % 15.6 % (10-50); Mean Corpuscular HGB Conc 33.5 g/dL (31.8-35.4); Mean Corpuscular Hemoglobin 29.5 pg (27.0-31.2); Mean Platelet Volume 9.4 fl (7.4-10.4); Monocytes # 0.6 K/mm3 (0.1-1.0); Monocytes % 4.3 % (1.7-9.3); Neutrophils # 10.8 K/mm3 (1.8-7.8); Neutrophils % 78.5 % (37.0-80.0); Platelet Count 354 K/mm3 (142-424); Red Blood Count 3.91 M/mm3 (4.20-5.40); Red Cell Distribution Width 13.7 % (11.5-17.5); White Blood Count 13.8 K/mm3 (4.8-10.8)
[2022-06-25 15:48] VITALS: BP 109/59; PULSE 101; RESP 18; TEMP 36.7; O2SAT 96
[2022-06-25 15:54] LABS: Glucose 1 Hour 116 mg/dL (74-100)
== END 2022-06-25 15:48 | disposition home or self-care (01) ==
PROVIDERS: Visit Provider Obstetrics & Gynecology
DX: Z34.90 Encounter for supervision of normal pregnancy, unspecified, unspecified trimester (principal)
CPT/HCPCS: 36415; 82951; 85025; 96372; J2790

== ENCOUNTER 2022-07-07 19:15 | Emergency (ER) | payer OTHER, SELFPAY ==
[2022-07-07 19:17] VITALS: BP 131/86; PULSE 91; RESP 18; TEMP 37.1; O2SAT 98; BMI 47.5
--- NOTE | 2022-07-07 19:39 | EXP.UTC ---
Discharge Plan Disposition Patient Disposition: Home, Self-Care Condition: Good Prescriptions Prescriptions: No Action Classic 28 mg iron- 800 mcg tablet 1 tab PO DAILY Referrals Follow up/Referrals: Provider,Referral, MD [Primary Care Provider] - See instructions Activity Restrictions/Add. Instructions Additional Instructions/Restrictions: covid swab was sent to lab, call tomorrow for results. self isolate until test results are known to be negative No sign of a bacterial infection. Likely viral. Viruses can take 7-14 days to run their course. Nasal saline and bulb syringe or nose Yulia to remove nasal drainage to help with nasal congestion. Hard to eat, drink, sleep with nasal congestion so important to keep this cleaned out. Monitor temp. Tylenol or Motrin as needed for pain or fever Encourage fluids, water, Gatorade, Powerade, Pedialyte if /toddler/child Warm salt water gargles Warm fluids Sore throat lozenges Sleep elevated Humidifier/vaporizer Follow-up immediately for new or worsening symptoms or no noticeable improvement over the next 48-72 hours. Clinical Impressions Clinical Impression: Upper respiratory infection Instructions Patient Instructions: DI for Viral Upper Respiratory Infection -- Adult Discharge ED Provider: Marcella ([facility])[place] [facility] [place] General Stated complaint: exposed to covid, sore throat, cough, cont Mode of Arrival: Ambulatory Source of Information: Patient Limitations: No Limitations Time Seen by Provider: 07/07/22 19:39 HEENT Symptoms (Recalled from RN notes): Yes History of Present Illness Provider Complaint: 21 yr old female presents for nasal congestion, clear drainage, sinus pressure and cough for 2 days Related Data Home Medications Medication Instructions Recorded Confirmed vits no.126-ferrous fum 1 tab PO DAILY vitamin 03/25/22 06/21/22 28 mg iron-folic acid 800 mcg tablet (Classic ) Allergies Allergy/AdvReac Type Severity Reaction Status Date / Time No Known Allergies Allergy Verified 06/21/22 13:36 [facility] Disclaimer: The information contained in this section may have been updated after the patient was seen, as this information can be updated by other users. 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) Depression Depression affecting , antepartum Endometriosis Hemorrhoids during Maternal obesity affecting , antepartum Nausea and vomiting Obesity (BMI 35.0-39.9 without comorbidity) Rh negative status during Screening for genetic disease carrier status Vaginitis Surgical History , [employer]IVATE EQUITY ANALYST) History of History of wisdom tooth extraction Social History , [employer]IVATE EQUITY ANALYST) Smoking Status: Current every day smoker tobacco type: cigarettes packs per day: 1 second hand exposure: Yes alcohol intake: never substance use type: denies use current occupational status: unemployed Travel in the last 8 weeks: None household members: family housing: house current occupational exposures/hazards: No caffeine: Yes ROS Obtained: Yes All systems reviewed & no additional complaints except as documented Constitutional Constitutional: Reports system reviewed and no additional complaints, except as documented and Reports as per HPI Eyes Eyes: Reports system reviewed and no additional complaints, except as documented ENT Ears, Nose, Mouth, and Throat: Reports system reviewed and no additional complaints, except as documented, Reports as per HPI, Reports nasal congestion, Reports nasal discharge, Reports post nasal drip and Reports sore throat Cardiovascular Cardiovascular: Reports system reviewed and no additional complaints, except as documented Respiratory Respiratory: Reports system reviewed and no additional complaints,
[2022-07-07 20:03] VITALS: BP 131/86; PULSE 91; RESP 18; TEMP 37.1; O2SAT 98
== END 2022-07-07 20:02 | disposition home or self-care (01) ==
PROVIDERS: Emergency Provider Nurse Practitioner Family
DX: J06.9 Acute upper respiratory infection, unspecified (principal); F17.210 Nicotine dependence, cigarettes, uncomplicated; F32.9 Major depressive disorder, single episode, unspecified; Z20.822 Contact with and (suspected) exposure to COVID-19
CPT/HCPCS: 87635; 99204; 99212; C9803; G0463; U0003; U0005

== ENCOUNTER → 2022-07-26 15:32 | Outpatient (CLI) | payer OTHER, SELFPAY ==
[2022-07-26 16:16] LABS: Chloride 107 mmol/L (98-107); Sodium 135 mmol/L (136-145)
[2022-07-26 16:17] LABS: Potassium 4.4 mmoL/L (3.5-5.1)
[2022-07-26 16:19] LABS: Alanine Aminotransferase 124 U/L (12-78); Albumin Level 3.2 g/dl (3.5-5.0); Alkaline Phosphatase 141 U/L (38-126); Anion Gap 13.4 mEq/L (5-15); Aspartate Amino Transferase 61 U/L (14-36); Bilirubin,Total 0.4 mg/dl (0.2-1.3); Blood Urea Nitrogen 4 mg/dl (7-17); Carbon Dioxide 19 mmol/L (22.0-30.0); Estimated Glomerular Filt Rate 200 ml/min (>60); GFR (African American) 242 ML/MIN (>60); Globulin 3.3 g/dL (1.3-3.2); Total Protein,Serum 6.5 g/dl (6.3-8.2)
[2022-07-26 16:20] LABS: Calcium 8.7 mg/dl (8.4-10.2); Glucose 98 mg/dl (74-100)
== END ==
PROVIDERS: Visit Provider Obstetrics & Gynecology
DX: Z34.93 Encounter for supervision of normal pregnancy, unspecified, third trimester (principal); Z3A.32 32 weeks gestation of pregnancy
CPT/HCPCS: 36415; 80053

== ENCOUNTER → 2022-07-27 11:11 | Outpatient (CLI) | payer OTHER, SELFPAY | PROVIDERS: Visit Provider Obstetrics & Gynecology | DX: Z34.93 Encounter for supervision of normal pregnancy, unspecified, third trimester (principal); Z3A.32 32 weeks gestation of pregnancy | CPT/HCPCS: 36415; 82239 ==

== ENCOUNTER 2022-07-28 17:36 | Outpatient (CLI) | payer OTHER, SELFPAY ==
[2022-07-28 18:23] VITALS: BMI 39.8
[2022-07-28 18:27] VITALS: BP 111/63; PULSE 96; RESP 16; TEMP 36.9; O2SAT 99; BMI 39.8
[2022-07-28 19:06] LABS: Microscopic, Urine URINE MICROSCOPIC (MICROSCOPIC)
[2022-07-28 19:07] LABS: Appearance,Urine CLEAR (Clear); Bilirubin,Urine Negative (Negative); Blood, Urine TRACE-I (Negative); Color,Urine YELLOW (Yellow); Glucose,Urine (UA) Negative (Negative); Ketones,Urine Negative (Negative); Leukocyte Esterase,Urine 3+ (Negative); Nitrate,Urine Negative (Negative); PH,Urine 6.5 (5.0-8.5); Protein,Urine Negative (Negative); Urobilinogen,Urine 0.2 EU/dl (0.2)
[2022-07-28 19:19] LABS: Benzodiazepines Screen,Urine Negative ng/ml (<200)
[2022-07-28 19:20] LABS: Amphetamine/Metha Screen,Urine Negative ng/ml (<1000); Bacteria,Urine 3+ /lpf; Barbiturates Screen,Urine Negative ng/ml (<200); Squamous Epithelial Cell,Urine 20-50 #/hpf (0-5)
[2022-07-28 19:21] LABS: Cannabinoid Screen,Urine Negative ng/ml (<50); Cocaine Screen,Urine Negative ng/ml (<300)
[2022-07-28 19:22] LABS: Methadone Screen,Urine Negative ng/ml (<300)
[2022-07-28 19:23] LABS: Opiate Screen,Urine Negative ng/ml (<300); Phencyclidine Screen,Urine Negative ng/ml (<25)
== END 2022-07-28 19:35 | disposition home or self-care (01) ==
LOC: OBOUT 17:39 → OB 17:43
PROVIDERS: Visit Provider Obstetrics & Gynecology
DX: O26.893 Other specified pregnancy related conditions, third trimester (principal); Z3A.33 33 weeks gestation of pregnancy
CPT/HCPCS: 59025; 80305; 81001; 87086; G0463

== ENCOUNTER → 2022-08-01 14:18 | Outpatient (CLI) | payer OTHER, SELFPAY ==
--- NOTE | 2022-08-01 14:26 | US_ITS ---
PROCEDURE: US OB BIOPHYSICAL PROFILE CLINICAL INDICATION: lga, with RUTHIE COMPARISON: FINDINGS: From her established due date she is 33weeks 4days. Scan was difficult due to patient's obesity. Viable fetus in the cephalic presentation with a posterior placenta grade 2. There are several lakes within the placenta. The following parameters are obtained: Average ultrasound age is 33weeks 5days. Estimated due date by ultrasound is 09/14/2022. Estimated weight is 4lb 14.46oz, 2224 grams. 42 percentile. heart rate: 142bpm bpm. BPD: 33weeks 6days OFD: 33weeks 6days HC: 33 weeks 5 days AC: 33 weeks 5 days FL: 3 weeks 5 days HC/AC: 1.02 Cephalic index: 0.79 FL/BPD: 0.77 FL/AC: 0.22 Amniotic fluid index: 7.18cm Qualitative AFV: 2 breathing movements: 2 Gross body movements: 2 Tone: 2 Biophysical profile score: 8 No obvious anomalies evident.Kidneys, three-vessel cord appear normal. Stomach, bladder and four-chamber view appears normal. IMPRESSION: 1. Viable fetus in the cephalic presentation with a posterior placenta grade 2. 2. There are several placental lakes. 3. There has been good interval growth and fetus is 42 percentile. 4. The fluid is low with an amniotic fluid index of 7.18 cm. Subjectively the fluid appears low. 5. No obvious anomaly is seen. Dictated by: Daniel Sanchez MD 08/01/2022 19:20 Daniel Sanchez MD in OV 08/01/2022 19:20
== END ==
PROVIDERS: Visit Provider Obstetrics & Gynecology
DX: O28.8 Other abnormal findings on antenatal screening of mother (principal); O36.63X0 Maternal care for excessive fetal growth, third trimester, not applicable or unspecified; Z3A.32 32 weeks gestation of pregnancy
CPT/HCPCS: 76816; 76819

== ENCOUNTER → 2022-08-06 16:38 | Outpatient (CLI) | payer OTHER, SELFPAY ==
[2022-08-09 15:13] LABS: Bile Acids 2.6
== END ==
PROVIDERS: Visit Provider Obstetrics & Gynecology
DX: Z34.93 Encounter for supervision of normal pregnancy, unspecified, third trimester (principal); Z3A.34 34 weeks gestation of pregnancy
CPT/HCPCS: 82239

== ENCOUNTER → 2022-08-13 12:34 | Outpatient (CLI) | payer OTHER, SELFPAY ==
--- NOTE | 2022-08-13 12:34 | US_ITS ---
PROCEDURE: US OB BIOPHYSICAL PROFILE CLINICAL INDICATION: Low RUTHIE COMPARISON: Ultrasound 08/01/2022 FINDINGS: From her established due date she is 35weeks 2days. Difficult exam due to the patient's body habitus. The following parameters are obtained: Viable fetus in the cephalic presentation. Amniotic fluid index: 7.25cm Qualitative AFV: 2 breathing movements: 2 Gross body movements: 2 Tone: 2 Biophysical profile score: 8 No obvious anomalies evident.Kidneys, three-vessel cord appear normal. Four-chamber heart appears normal. Diaphragm appears normal. Placenta: Posterior grade 2. There are several placental lakes. IMPRESSION: 1. Viable fetus in the cephalic presentation with a posterior placenta grade 2. 2. The placenta has several placental lakes of questionable significance. 3. Good breathing movement seen. Biophysical profile 09/18. 4. Fluid is subjectively low at 7.25 cm. Similar amount of fluid to the study done 2 weeks ago. There was a pocket measuring 3.3 cm x 4.5 cm today. Dictated by: Daniel Sanchez MD 08/13/2022 19:35 Daniel Sanchez MD in OV 08/13/2022 19:35
== END ==
PROVIDERS: PCP Obstetrics & Gynecology; Visit Provider Obstetrics & Gynecology
DX: O28.8 Other abnormal findings on antenatal screening of mother (principal); Z3A.35 35 weeks gestation of pregnancy
CPT/HCPCS: 76819

== ENCOUNTER → 2022-08-21 16:33 | Outpatient (CLI) | payer OTHER, SELFPAY | PROVIDERS: Visit Provider Nurse Practitioner Obstetrics & Gynecology | DX: K83.1 Obstruction of bile duct (principal); O26.613 Liver and biliary tract disorders in pregnancy, third trimester | CPT/HCPCS: 86403 ==

== ENCOUNTER 2022-08-28 04:55 | Inpatient (IN) | payer OTHER, SELFPAY ==
[2022-08-28] VITALS (11 sets, daily range): BP systolic 114–139; BP diastolic 58–93; PULSE 58–103; RESP 12–18; TEMP 36.2–36.7; O2SAT 96–99; BMI 39.9
[2022-08-28 05:34] LABS: Basophils # 0.1 K/mm3 (0-0.2); Basophils % 0.4 % (0.1-2.0); Eosinophils # 0.3 K/mm3 (0.0-0.4); Eosinophils % 1.9 % (0.1-12.0); Hematocrit 38.5 % (37.0-47.0); Hemoglobin 12.3 g/dL (12.2-16.2); Lymphocytes # 2.4 K/mm3 (0.7-4.5); Lymphocytes % 17.6 % (10-50); Mean Corpuscular HGB Conc 31.8 g/dL (31.8-35.4); Mean Corpuscular Hemoglobin 27.8 pg (27.0-31.2); Mean Corpuscular Volume 87.5 fl (81-99); Mean Platelet Volume 9.9 fl (7.4-10.4); Monocytes # 0.6 K/mm3 (0.1-1.0); Monocytes % 4.7 % (1.7-9.3); Neutrophils # 10.1 K/mm3 (1.8-7.8); Neutrophils % 75.4 % (37.0-80.0); Platelet Count 298 K/mm3 (142-424); Red Blood Count 4.41 M/mm3 (4.20-5.40); Red Cell Distribution Width 14.2 % (11.5-17.5); White Blood Count 13.3 K/mm3 (4.8-10.8)
[2022-08-28 05:35] LABS: Coronavirus 19, PCR Not Detected (NotDetected); Influenza A, PCR Not Detected (NotDetected); Influenza B, PCR Not Detected (NotDetected)
[2022-08-28 05:35] LABS: Microscopic, Urine URINE MICROSCOPIC (MICROSCOPIC)
[2022-08-28 05:37] LABS: Appearance,Urine CLEAR (Clear); Bilirubin,Urine Negative (Negative); Blood, Urine 2+ (Negative); Color,Urine DK YELLOW (Yellow); Glucose,Urine (UA) Negative (Negative); Ketones,Urine Negative (Negative); Leukocyte Esterase,Urine TRACE (Negative); Nitrate,Urine Negative (Negative); Protein,Urine Negative (Negative); Urobilinogen,Urine 0.2 EU/dl (0.2)
[2022-08-28 05:45] LABS: Alanine Aminotransferase 281 U/L (12-78); Albumin Level 3.6 g/dl (3.5-5.0); Alkaline Phosphatase 247 U/L (38-126); Anion Gap 10.3 mEq/L (5-15); Aspartate Amino Transferase 130 U/L (14-36); Bilirubin,Total 0.4 mg/dl (0.2-1.3); Blood Urea Nitrogen 7 mg/dl (7-17); Calcium 9.3 mg/dl (8.4-10.2); Carbon Dioxide 20 mmol/L (22.0-30.0); Chloride 110 mmol/L (98-107); Creatinine Clearance Estimated 312 mL/min (50-200); Estimated Glomerular Filt Rate 154 ml/min (>60); GFR (African American) 187 ML/MIN (>60); Globulin 3.7 g/dL (1.3-3.2); Glucose 94 mg/dl (74-100); Potassium 4.3 mmoL/L (3.5-5.1); Sodium 136 mmol/L (136-145); Total Protein,Serum 7.3 g/dl (6.3-8.2)
[2022-08-28 05:48] LABS: Amphetamine/Metha Screen,Urine Negative ng/ml (<1000)
[2022-08-28 05:49] LABS: Barbiturates Screen,Urine Negative ng/ml (<200)
[2022-08-28 05:50] LABS: Benzodiazepines Screen,Urine Negative ng/ml (<200); Cannabinoid Screen,Urine Negative ng/ml (<50)
[2022-08-28 05:51] LABS: Cocaine Screen,Urine Negative ng/ml (<300); Methadone Screen,Urine Negative ng/ml (<300)
[2022-08-28 05:53] LABS: Phencyclidine Screen,Urine Negative ng/ml (<25)
[2022-08-28 05:55] LABS: Opiate Screen,Urine Negative ng/ml (<300)
[2022-08-28 05:59] LABS: Bacteria,Urine 1+ /lpf; Squamous Epithelial Cell,Urine Occasional #/hpf (0-5); WBC,Urine Occasional #/hpf (0-3)
--- NOTE | 2022-08-28 07:21 | EXP.OB.APHP ---
OB - H&P: HPI Antepartum History of Present Illness Chief complaint: Scheduled repeat History of present illness: Ms Genie Avery is a 21 yo at 37w3d who presents to [facility] for scheduled repeat at 37 weeks secondary to intrahepatic cholestasis of . LFTs elevated. Bile acid salts 2.6. She has been taking Ursodiol 300 mg BID. Baby is active. Denies contractions and leakage of fluid. She has had good care. History of Present Criteria for establishing EDC:: based on 1st trimester US only care: good care Ultrasounds: normal mid trimester US Obstetrical complications: other (intrahepatic cholestasis of ) Medical complications: none Labs Blood type: O (-) negative Rubella: immune RPR/VDRL: nonreactive GBS status: negative HBsAG: negative [facility] Disclaimer: The information contained in this section may have been updated after the patient was seen, as this information can be updated by other users. Medical History (Updated 08/28/22 @ 07:28 by Cassie Liz DO) Depression Depression affecting , antepartum Endometriosis Hemorrhoids during Intrahepatic cholestasis of in third trimester Maternal obesity affecting , antepartum Nausea and vomiting Obesity (BMI 35.0-39.9 without comorbidity) with 37 weeks completed gestation Pruritus of palm Rh negative status during Screening for genetic disease carrier status Vaginitis Surgical History History of History of wisdom tooth extraction Social History Smoking Status: Current every day smoker tobacco type: cigarettes packs per day: 1 second hand exposure: Yes alcohol intake: never substance use type: denies use current occupational status: unemployed Travel in the last 8 weeks: None household members: family housing: house current occupational exposures/hazards: No caffeine: Yes Review of Systems Review of Systems Review of systems:: pertinent systems reviewed and negative unless documented below Meds Home Medications and Allergies Home Medications Medication Instructions Recorded Confirmed Type vits no.126-ferrous fum 1 tab PO DAILY vitamin 03/25/22 08/28/22 History 28 mg iron-folic acid 800 mcg tablet (Classic ) hydroxyzine pamoate 25 mg capsule 25 mg PO Q8H PRN itching #30 caps 07/26/22 08/28/22 Rx (Vistaril) nitrofurantoin 100 mg PO BID UTI 08/28/22 08/28/22 History monohydrate/macrocrystals 100 mg capsule (Macrobid) ursodiol 300 mg capsule 300 mg PO BID ITCHING 08/28/22 08/28/22 History New Prescriptions to Start Prescriptions: Allergies Allergy/AdvReac Type Severity Reaction Status Date / Time No Known Allergies Allergy Verified 08/21/22 15:13 OB - H&P: Exam Physical Exam Vital signs: Temp Pulse Resp BP Pulse Ox O2 Del Method 97.9 F 103 H 18 114/62 96 Room Air 08/28/22 06:19 08/28/22 06:19 08/28/22 06:19 08/28/22 06:19 08/28/22 06:19 08/28/22 06:19 Constitutional no acute distress Routine HEENT Exam Head: Present normocephalic and atraumatic Eye: Absent conjunctivae pink ENT: Present mucous membranes moist Routine Neck Exam Present full ROM Routine Respiratory Exam Present CTA bilaterally and normal respiratory effort Routine Cardiovascular Exam Present RRR Routine Abdominal Exam Present soft (Gravid); Absent tenderness Routine Rectal Exam Patient deferred: visual exam Routine Exam External: Present normal urethra appearance; Absent erythema, lesions or lacerations Routine Extremities Exam Present full ROM; Absent edema Routine Neurological Exam Present alert, oriented X3 and moving all extremities Routine Psychiatric Exam Present normal affect and cooperative OB - Results Labs Labs: Short CB
--- NOTE | 2022-08-28 08:36 | HMH.PHAINT1 ---
Pharmacy Intervention Comments: MEDICATION RECONCILIATION COMPLETED ON PATIENT USING EXTERNAL FILL HISTORY FROM PHARMACY. -WALLACE BOYD, GARRETD
--- NOTE | 2022-08-28 08:58 | EXP.OP.NOTE ---
Date of procedure: 08/28/22 Pre-op Diagnosis:: 1. IUP at 37w3d 2. Intrahepatic cholestasis of 3. History of x 1 4. Maternal obesity 5. Depression 6. Rh negative Post-op Diagnosis:: 1. IUP at 37w3d 2. Intrahepatic cholestasis of 3. History of x 1 4. Maternal obesity 5. Depression 6. Rh negative Procedure performed:: Repeat Low Transverse section Surgeon:: Cassie Liz DO Reproductive Healthcare Assistant(s):: Daniel Sanchez MD DREDGE CAPTAIN:: Modetso Glynn Anesthesia: spinal (converted to general ) Estimated blood loss (mL): 800 Clinical Note:: Ms Genie Avery is a 21 yo at 37w3d who presents to [facility] for scheduled repeat at 37 weeks secondary to intrahepatic cholestasis of . LFTs elevated. Bile acid salts 2.6. She has been taking Ursodiol 300 mg BID. Baby is active. Denies contractions and leakage of fluid. She has had good care. Operative findings:: 1. Live female baby (baby's name Yvette Nam) weighing 7 lb 5 oz, APGARs 8, 9 2. Nuchal cord x 1 3. Grossly normal appearing uterus, bilateral fallopian tubes and ovaries Operative note:: The risks, benefits and alternatives of the procedure were reviewed with the patient. Informed consent was obtained. Patient was taken to the operating room where spinal anesthesia was placed. The patient received 2 grams of Ancef preoperatively. Patient was placed in dorsal supine position with a leftward tilt. SCDs in place. Yates catheter was inserted and draining clear urine prior to the start of the procedure. heart tones were obtained. Patient was then prepped and draped in normal sterile fashion. Allis clamp test was performed to ensure adequate anesthesia. A Pfannenstiel skin incision was made 2 cm above pubic symphysis through prior Pfannenstiel scar. This was carried through to underlying layer of fascia. Fascia was incised in midline, extended laterally with Guerrero scissors. Superior aspect of fascial incision was grasped with two Luis clamps, elevated up, and rectus muscle dissected off bluntly and sharply with Guerrero scissors. The retcus muscle was then in the midline and the peritoneum was entered bluntly with a digit. Peritoneal incision was then extended superiorly and inferiorly with good visualization of the bladder. Arthur retractor was inserted. Bladder flap was made with Metzenbaum scissors. The lower uterine segment was incised in a transverse fashion. Clear amniotic fluid was noted. Head was delivered without difficulty. Nuchal x 1 was easily reduced. Remainder of body was delivered without difficulty. Mouth and nares were bulb suctioned. Spontaneous cry was noted. Delayed cord clamping was performed for 60 seconds. The umbilical cord was clamped and cut. The infant was handed to awaiting pediatric staff in stable condition. Dr. Castañeda was present. Apgars were 8(1 min), 9(5 min). Cord blood was obtained. Gentle traction on the umbilical cord and uterine fundal massage delivered the placenta. Placenta was intact. Placenta will be sent to pathology for review. Uterus was cleared of all clots and debris with a moist laparotomy sponge. Corners of the uterine incision were grasped with Allis clamps. The uterine incision was reapproximated with # 1 Vicryl suture in a running, locked stitch. Second layer of the same stitch was used to imbricate the incision. Excellent hemostasis was noted. Posterior cul-de-sac was cleaned with moist laparotomy sponge. Gutters cleared of all clots and debris with a moist laparotomy sponge. Reinspection of the lower uterine segment demonstrated small amount of oozing. Gel Foam was placed over uterine incision. Hemostasis was noted. At this point all instruments and sponges were removed from the pelvis.? The peritoneum was grasped with Shahana clamps x 3. The peritoneum was reapproximated with 0 Vicryl suture in a running stitch. The corners of the fascia were grasped with Luis clamps, and the fascia was reapproxima
--- NOTE | 2022-08-28 08:59 | EXP.ANES.CKL ---
[facility] Disclaimer: The information contained in this section may have been updated after the patient was seen, as this information can be updated by other users. Medical History (Updated 08/28/22 @ 07:28 by Cassie Liz DO) Depression Depression affecting , antepartum Endometriosis Hemorrhoids during Intrahepatic cholestasis of in third trimester Maternal obesity affecting , antepartum Nausea and vomiting Obesity (BMI 35.0-39.9 without comorbidity) with 37 weeks completed gestation Pruritus of palm Rh negative status during Screening for genetic disease carrier status Vaginitis Surgical History History of History of wisdom tooth extraction Social History Smoking Status: Current every day smoker tobacco type: cigarettes packs per day: 1 second hand exposure: Yes alcohol intake: never substance use type: denies use current occupational status: unemployed Travel in the last 8 weeks: None household members: family housing: house current occupational exposures/hazards: No caffeine: Yes [facility] Anesthesia Checklist Patient Identification Patient Identification: Verbal (Name & ) Structural Data Admitted From: Inpatient Planned Operative Procedure/s: c/section Consent for Planned Operative Procedure(s) Verified: Yes NPO Status Verified Time NPO: 00:00 Additional verifications Anesthesia Reactions: No Airway Assessment C-Spine Mobility Assessed: Yes TMJ Mobility Assessed: Yes Dentition: Good Dentition Neurological Assessment Level of Consciousness: Awake, Alert and Appropriate Anesthesia Plan Anesthesia Risk discussed: Yes Anesthesia Plan: Verified ASA Class: II Anesthesia Type: Spinal
--- NOTE | 2022-08-28 09:00 | EXP.ANES.I ---
[facility] Anesthesia Record Part I Anesthesia Record I Intake, IV Amount: 1,500 Estimated blood loss (mL): 800 Urine output (mL): 250 Blood Pressure: 134/60 SaO2: 96 Pulse Rate: 95 Respiratory Rate: 12 Temperature: 97.5 F Patient is:: Awake and Stable Stable to PACU at:: 08:55 Comments:: after incision pt became increasingly uncomfortable tried ketamine until baby was out then had to go to general
--- NOTE | 2022-08-28 09:02 | SUR.PHASEI ---
QBL - 1072. Dr. Liz notified per protocol. Orders for PRBC's to be put on hold and 2nd IV started. Fundus is firm at U. Will continue to monitor.
--- NOTE | 2022-08-28 10:51 | SUR.OPER ---
0804- Time of of viable infant. pH of cord blood = 7.40
[2022-08-28 14:09] LABS: Microscopic,Cath URINE MICROSCOPIC (MICROSCOPIC)
[2022-08-28 14:23] LABS: Appearance,Urine/Cath CLEAR (Clear); Bilirubin,Cath Negative (Negative); Blood, Urine/Cath Negative (Negative); Color,Urine/Cath YELLOW (Yellow); Glucose,Urine/Cath (UA) Negative (Negative); Ketones,Urine/Cath TRACE (Negative); Leukocyte Esterase,Cath Negative (Negative); Nitrate,Cath Negative (Negative); PH,Urine/Cath 8.5 (5.0-8.5); Protein,Urine/Cath Negative (Negative); Specific Gravity, Urine/Cath 1.015 (1.005-1.030); Urobilinogen,Cath 0.2 EU/dl (0.2)
[2022-08-29 06:44] LABS: Alanine Aminotransferase 161 U/L (12-78); Albumin Level 2.6 g/dl (3.5-5.0); Albumin/Globulin Ratio 0.9 (1.1-1.8); Alkaline Phosphatase 154 U/L (38-126); Anion Gap 5.9 mEq/L (5-15); Aspartate Amino Transferase 66 U/L (14-36); Blood Urea Nitrogen 10 mg/dl (7-17); Calcium 8.9 mg/dl (8.4-10.2); Carbon Dioxide 25 mmol/L (22.0-30.0); Chloride 112 mmol/L (98-107); Creatinine Clearance Estimated 223 mL/min (50-200); Estimated Glomerular Filt Rate 105 ml/min (>60); GFR (African American) 127 ML/MIN (>60); Globulin 2.9 g/dL (1.3-3.2); Glucose 127 mg/dl (74-100); Potassium 3.9 mmoL/L (3.5-5.1); Sodium 139 mmol/L (136-145); Total Protein,Serum 5.5 g/dl (6.3-8.2)
[2022-08-29 06:47] LABS: Basophils % 0.2 % (0.1-2.0); Eosinophils # 0.2 K/mm3 (0.0-0.4); Eosinophils % 1.7 % (0.1-12.0); Hemoglobin 10.1 g/dL (12.2-16.2); Lymphocytes # 2.4 K/mm3 (0.7-4.5); Lymphocytes % 21.4 % (10-50); Mean Corpuscular HGB Conc 31.6 g/dL (31.8-35.4); Mean Corpuscular Hemoglobin 28.5 pg (27.0-31.2); Mean Corpuscular Volume 90.1 fl (81-99); Mean Platelet Volume 10.3 fl (7.4-10.4); Monocytes # 0.7 K/mm3 (0.1-1.0); Monocytes % 6.4 % (1.7-9.3); Neutrophils # 7.7 K/mm3 (1.8-7.8); Neutrophils % 70.2 % (37.0-80.0); Platelet Count 238 K/mm3 (142-424); Red Blood Count 3.55 M/mm3 (4.20-5.40); Red Cell Distribution Width 14.2 % (11.5-17.5)
[2022-08-29 06:50] LABS: Bilirubin,Total < 0.1 mg/dl (0.2-1.3)
[2022-08-29 08:10] VITALS: BP 123/64; PULSE 86; RESP 18; TEMP 37
--- NOTE | 2022-08-29 10:34 | SW/DCPLANNER ---
Addendum entered by Chichi Romero 09/03/22 10:30: Patient cord screen is positive for Meperidine: Ashley guzmán/ pharmacy stated that Anaesthesia did prescibe medication during delivery to make this patient test positive. Original Note: I received a consult on this patient regarding: positive drug use during . Patient tested positive for THC on 05/04/22 and 05/13/22. Patient tested negative on the following dates: 06/09/22, 07/28/22 and 08/28/22. Patient and infant were negative on admission. female (Yvette Bustillos) was born on [birth year]. 's father (Nitin Bustillos 10/11/98) was present at time of my visit. Patient, her parent's (Brooks and Yvette Mcneal), Nitin and other child (Lani Bustillos 05/18/19) will reside at [address] [place] [address]. Patient's contact number is [phone]. Patient is established with [facility] and is interested in HANDS program. I will contact Abhi guzmán/ MARIANNA regarding interest in the program. Patient did have past Social Service involement: child was never removed and case is closed. Patient stated that she has the following items at home: crib, carseat, clothing, diapers and will be bottle feeding. Patient stated PEDS MD is Dr Castañeda. Patient will have transportation to all follow up appointments. Per nursing ([facility]) patient is appropriate with . Patient/ plan to discharge tomorrow pending no setbacks. Patient has no further needs at this time.
--- NOTE | 2022-08-29 12:50 | EXP.ACUTE.PN ---
Subjective *Date: 08/29/22 *Time: 12:50 Interval history: POD # 1 s/p PLTCS Sitting at bedside table eating lunch. She is feeling well. Pain controlled. She complains of some back pain. Appropriate lochia. She is bottle feeding. Tolerating regular diet. Voiding without difficulty and passing flatus. Denies fever/chills, chest pain and shortness of breath. No headaches or vision changes. Admits to mild lower extremity swelling. Medical Exam Vital signs and Labs for Last 24 Hours: Vital Signs Temp Pulse Resp BP Pulse Ox O2 Del Method 08/28/22 20:18 98.1 F 70 18 124/58 L 97 Room Air Laboratory Results - last 24 hr 08/28/22 07:34: Urine Color Yellow, Urine Appearance Clear, Urine pH 8.5, Ur Specific Noel 1.015, Urine Protein Negative, Urine Glucose (UA) Negative, Urine Ketones Trace, Urine Blood Negative, Urine Nitrate Negative, Urine Bilirubin Negative, Urine Urobilinogen 0.2, Ur Leukocyte Esterase Negative, Urine RBC None, Urine WBC None, Ur Squamous Epith Cells 3-5, Urine Bacteria None 08/29/22 06:25: WBC 11.0 H, RBC 3.55 L, Hgb 10.1 L, Hct 32.0 L, MCV 90.1, MCH 28.5, MCHC 31.6 L, RDW 14.2, Plt Count 238, MPV 10.3, Neut % (Auto) 70.2, Lymph % (Auto) 21.4, Sully % (Auto) 6.4, Eos % (Auto) 1.7, Baso % (Auto) 0.2, Neut # (Auto) 7.7, Lymph # (Auto) 2.4, Sully # (Auto) 0.7, Eos # (Auto) 0.2, Baso # (Auto) 0.0, Sodium 139, Potassium 3.9, Chloride 112 H, Carbon Dioxide 25, Anion Gap 5.9, BUN 10 D, Creatinine 0.70 D, Estimated Creat Clear 223, Estimated GFR 105, Est GFR ( Amer) 127 D, Glucose 127 H, Calcium 8.9, Total Bilirubin < 0.1 L, AST 66 H D, ALT 161 H D, Alkaline Phosphatase 154 H, Total Protein 5.5 L, Albumin 2.6 L D, Globulin 2.9, Albumin/Globulin Ratio 0.9 L I & O for Labs for Last 24 Hours: Intake & Output 08/26/22 08/27/22 08/28/22 08/29/22 23:59 23:59 23:59 23:59 Intake Total 1500 / 1500 Balance 1500 / 1500 Weight 247 lb Head: Present atraumatic and normocephalic ENT: Present mucous membranes moist Neck: Present normal inspection and full ROM Respiratory: Present CTA bilaterally and normal respiratory effort Cardiac: Present Reg Rate and Rhythm GI: Present soft; Absent distention or tenderness Comments:: Uterine fundus firm and below umbilicus, pfannenstiel incision clean/dry/intact with steri strips in place Rectal (female): Present deferred (female): Present deferred Extremities: Present full ROM and edema (trace bilateral lower extremity edema); Absent calf tenderness Neuro: Present alert, awake, oriented x 3 and moves all extremities Assessment and Plan *Assessment and plan (1) S/P section: Status: Acute Category: Surgical Code(s): Z98.891 - History of uterine scar from previous surgery (2) with 37 weeks completed gestation: Status: Acute Category: Medical Code(s): Z3A.37 - 37 weeks gestation of (3) Intrahepatic cholestasis of in third trimester: Status: Acute Category: Medical Code(s): O26.613 - Liver and biliary tract disorders in , third trimester; K83.1 - Obstruction of bile duct (4) Depression affecting , antepartum: Status: Acute Category: Medical Code(s): O99.340 - Other mental disorders complicating , unspecified trimester; F32.A - Depression, unspecified (5) Rh negative status during : Status: Acute Qualifiers: Trimester: third trimester Qualified Code(s): O26.893 - Other specified related conditions, third trimester; Z67.91 - Unspecified blood type, Rh negative Category: Medical Code(s): O26.899 - Other specified related conditions, unspecified trimester; Z67.91 - Unspecified blood type, Rh negative (6) Maternal obesity affecting , antepartum: Status: Acute Qualifiers: Obesity type affecting : unspecified obesity Qualified Code(s): O9
[2022-08-29 17:30] VITALS: BP 126/70; PULSE 76; RESP 18; TEMP 36.9
--- NOTE | 2022-08-30 05:45 | EXP.DC.SUM ---
General Admission date:: 08/28/22 Discharge date: 08/30/22 HPI HPI HPI: POD # 2 s/p RLTCS Sitting comfortably in bedside chair. Pain controlled. Light lochia. She is formula feeding. Tolerating regular diet. Voiding without difficulty and passing flatus. Denies fever/chills, chest pain and shortness of breath. No headaches or vision changes. Admits to lower extremity swelling. No calf pain. Ambulating well ad darryl. Hospital Course Hospital Course Hospital Course: Ms Genie Avery is a 21 yo at 37w3d who presented to [facility] for scheduled repeat at 37 weeks secondary to intrahepatic cholestasis of . LFTs elevated. Bile acid salts 2.6. She took Ursodiol 300 mg BID. She had good care. She underwent repeat low transverse section on 08/28/22. She delivered a live female baby, Yvette Nam, weighing 7 lb 5 oz, APGARs 8, 9. EBL 800 mL. She did well . Pain controlled. Light lochia. Voiding without difficulty and passing flatus. Tolerating regular diet. Vital signs stable, afebrile. Heart regular rate and rhythm. Lungs clear to auscultation. Abdomen soft and nontender. Extremities with trace edema. No calf tenderness to palpation. LFTs improving. Normal hospital course. Exam Data for Last 24 hours Vital signs and Labs for Last 24 Hours: Temp Pulse Resp BP Pulse Ox O2 Del Method 98.4 F 76 18 126/70 97 Room Air 08/29/22 17:30 08/29/22 17:30 08/29/22 17:30 08/29/22 17:30 08/28/22 20:18 08/28/22 20:18 Laboratory Results - last 24 hr 08/29/22 06:25: WBC 11.0 H, RBC 3.55 L, Hgb 10.1 L, Hct 32.0 L, MCV 90.1, MCH 28.5, MCHC 31.6 L, RDW 14.2, Plt Count 238, MPV 10.3, Neut % (Auto) 70.2, Lymph % (Auto) 21.4, Desoto % (Auto) 6.4, Eos % (Auto) 1.7, Baso % (Auto) 0.2, Neut # (Auto) 7.7, Lymph # (Auto) 2.4, [place] # (Auto) 0.7, Eos # (Auto) 0.2, Baso # (Auto) 0.0, Sodium 139, Potassium 3.9, Chloride 112 H, Carbon Dioxide 25, Anion Gap 5.9, BUN 10 D, Creatinine 0.70 D, Estimated Creat Clear 223, Estimated GFR 105, Est GFR ( Amer) 127 D, Glucose 127 H, Calcium 8.9, Total Bilirubin < 0.1 L, AST 66 H D, ALT 161 H D, Alkaline Phosphatase 154 H, Total Protein 5.5 L, Albumin 2.6 L D, Globulin 2.9, Albumin/Globulin Ratio 0.9 L 08/29/22 15:10: Screen Negative, Baby's Rh Status Positive, Rhogam Infusion Rhogam release I & O for Last 24 hours: Intake & Output 08/27/22 08/28/22 08/29/22 08/30/22 23:59 23:59 23:59 23:59 Intake Total 1500 / 1500 Balance 1500 / 1500 Weight 247 lb Constitutional Constitutional: no acute distress *Routine HEENT Exam Head: Present normocephalic and atraumatic Eye: Absent conjunctivae pink ENT: Present mucous membranes moist *Routine Neck Exam Neck: Present full ROM *Routine Respiratory Exam Respiratory: Present CTA bilaterally and normal respiratory effort *Routine Cardiovascular Exam Cardiovascular: Present RRR *Routine Abdominal Exam Abdominal: Present soft and normoactive bowel sounds; Absent tenderness or distended Comments: Uterine fundus firm and below umbilicus, pfannenstiel incision clean/dry/intact with steri strips in place *Routine Rectal Exam Patient deferred: visual exam *Routine Exam Patient deferred: external exam *Routine Extremities Exam Extremities: Present edema (trace bilateral lower extremity edema) and full ROM; Absent calf tenderness *Routine Neurological Exam Neurological: Present alert, oriented X3 and moving all extremities Routine Psychiatric Exam Psychiatric: Present normal affect and cooperative Results Data Completed and Pending Labs on day of discharge: Labs from last 24 hours 08/29/22 08/29/22 15:10 06:25 WBC 11.0 H RBC 3.55 L Hgb 10.1 L Hct 32.0 L MCV 90.1 MCH 28.5 MCHC 31.6 L RDW 14.2 Plt Count 238 MPV 10.3 Neut % (Auto) 70.2 Lymph % (Auto) 21.4 [place] % (Auto) 6.4 Eos % (Auto) 1.7 Baso % (Auto) 0.2 Neut # (Auto) 7.7 Lymph # (Auto) 2.4 Desoto # (A
--- NOTE | 2022-09-03 07:52 | EXP.ANES.II ---
[facility] Anesthesia Record Part II Anesthesia Record Part II Discharge Time: 09:30 Destination: Obstetric PACU nurse assessment reviewed?: Yes Patient Condition:: Good Anesthesia Complications:: None Swallowing reflex intact?: Yes Cyanosis?: No Blood Pressure: 130/93 Pulse Rate: 58 Temperature: 97.2 F Mental Status: Alert & Oriented Pain level:: 0 Nausea and/or vomitting:: None Intake, IV Amount: 0
[2022-09-03 07:53] VITALS: BP 130/93; PULSE 58; TEMP 36.2
--- NOTE | 2022-09-14 15:24 | PC.NURSE ---
notified DR. Liz's office notified of depression screening. they made note in chart so dr liz can bring up on her appointment.
== END 2022-08-30 10:48 | disposition home or self-care (01) | DRG 786 ==
PROVIDERS: Admitting Provider Obstetrics & Gynecology; Visit Provider Obstetrics & Gynecology
PROC: 10D00Z1 Extraction of Products of Conception, Low, Open Approach (ICD-10-PCS; principal; 2022-08-28 07:30)
DX: K83.1 Obstruction of bile duct (principal); O34.211 Maternal care for low transverse scar from previous cesarean delivery; Z37.0 Single live birth; Z3A.37 37 weeks gestation of pregnancy; E78.79 Other disorders of bile acid and cholesterol metabolism; O69.81X0 Labor and delivery complicated by cord around neck, without compression, not applicable or unspecified; D62 Acute posthemorrhagic anemia; O26.62 Liver and biliary tract disorders in childbirth; L29.8 Other pruritus; O99.340 Other mental disorders complicating pregnancy, unspecified trimester; F32.A Depression, unspecified; N85.8 Other specified noninflammatory disorders of uterus; F17.210 Nicotine dependence, cigarettes, uncomplicated; Z23 Encounter for immunization; O99.334 Smoking (tobacco) complicating childbirth
CPT/HCPCS: 59514; 36415; 59025; 80053; 80305; 81001; 82800; 85025; 85461; 86850; 87636; 88307; 94761; G0283; J2405; J2790

== ENCOUNTER 2023-02-11 15:36 | Emergency (ER) | payer SELFPAY ==
--- NOTE | 2023-02-11 16:12 | CT_ITS ---
PROCEDURE INFORMATION: Exam: CT Abdomen And Pelvis With Contrast Exam date and time: 02/11/2023 5:06 PM Age: 22 years old Clinical indication: Abdominal pain; Other: Low; Additional info: Low abd pain 2w, has iud in place TECHNIQUE: Imaging protocol: Computed tomography of the abdomen and pelvis with contrast. Radiation optimization: All CT scans at this facility use at least one of these dose optimization techniques: automated exposure control; mA and/or kV adjustment per patient size (includes targeted exams where dose is matched to clinical indication); or iterative reconstruction. Contrast material: ISOVUE; Contrast volume: 75 ml; Contrast route: IV; REPORTING DATA: Count of CT and Cardiac NM exams in prior 12 months: This patient has received 0 known CTs and 0 known cardiac nuclear medicine studies in the 12 months prior to the current study. COMPARISON: CT ABDOMEN PELVIS W CON 07/27/2019 12:31 AM FINDINGS: Lungs: Lung bases are clear. Liver: Normal. No mass. Gallbladder and bile ducts: Normal. No calcified stones. No ductal dilation. Pancreas: Normal. No ductal dilation. Spleen: Normal. No splenomegaly. Adrenal glands: Normal. No mass. Kidneys and ureters: Normal. No hydronephrosis. Stomach and bowel: Unremarkable. No obstruction. No mucosal thickening. Appendix: Appendix is normal. No evidence of appendicitis. Intraperitoneal space: Unremarkable. No free air. No significant fluid collection. Vasculature: Unremarkable. No abdominal aortic aneurysm. Lymph nodes: Unremarkable. No enlarged lymph nodes. Urinary bladder: Unremarkable as visualized. Reproductive: IUD is noted which is malpositioned located in the lower uterine segment and body. Additionally the right wing of the IUD extends through the myometrium and I believe extends beyond the outer margin of the myometrium posteriorly on the right. The left wing of the IUD also appears imbedded in the myometrium of the uterine body. Small amounts of free fluid noted in the right adnexal region adjacent to the uterus in the area of the right wing of the myometrium. Bones/joints: Unremarkable. No acute fracture. Soft tissues: Unremarkable. IMPRESSION: 1. Malpositioned IUD in the body of the lower uterine segment. Additionally the wings of the IUD extend into the myometrium with the right wing extending through the outer margin of the myometrium and appears to slightly protrude into the adjacent Daniella uterine fat with associated adjacent mild Daniella uterine and right adnexal edema and free fluid. 2. No other acute findings.
--- NOTE | 2023-02-11 16:13 | ED_ITS ---
Discharge Plan Disposition Patient Disposition: Home, Self-Care Chief Complaint: Abdominal Pain Prescriptions Prescriptions: No Action Kyleena 17.5 mcg/24 hrs (5 yrs) 19.5 mg intrauterine device intrauterine Nuvessa 1.3 % (65 mg/5 gram) gel 1 appful vaginal HS Qty: 5 0RF Rx Instructions: insert 1 applicator into the vagina at bedtime, once buspirone 5 mg tablet 5 mg PO TID Qty: 90 2RF Referrals Follow up/Referrals: Provider,Referral, MD [Primary Care Provider] - See instructions Activity Restrictions/Add. Instructions Additional Instructions/Restrictions: At this time it was felt you are safe to be discharged home. If new or worsening symptoms please do not hesitate to return the emergency department. Please follow-up with Dr. Sanchez tomorrow anytime after 8 AM. Tell them that you were seen in the emergency department and Dr. Sanchez wanted you seen. Clinical Impressions Clinical Impression: Malpositioned IUD Instructions Patient Instructions: DI for Acute Abdominal Pain Discharge ED Provider: Robb Francois General Adult HPI General Chief complaint: Abdominal Pain Stated complaint: abd pain, diarrhea Time Seen by Provider: 02/11/23 16:01 History of Present Illness HPI narrative: Patient is a 22-year-old female with past medical history of previous IUD placement who presents emergency department for evaluation of lower abdominal pain. Onset was subacute, occurring over the last few weeks, lower abdominal pain, suprapubic and bilateral lower quadrant. Patient has scant vaginal bleeding, irregular periods at baseline. No dysuria. No vomiting. No other acute complaints at this time. Related Data Home Medications Medication Instructions Recorded Confirmed levonorgestrel 17.5 mcg/24 hrs intrauterine 11/16/22 11/16/22 (5yrs) 19.5mg intrauterine device (Kyleena) Previous Rx's Medication Instructions Recorded buspirone 5 mg tablet 5 mg PO TID #90 tabs 11/13/22 metronidazole 1.3 % (65 mg/5 gram) 1 appful vaginal HS 1 dose #5 grams 11/19/22 vaginal gel (Nuvessa) Allergies Allergy/AdvReac Type Severity Reaction Status Date / Time No Known Allergies Allergy Verified 11/16/22 11:23 [facility] Disclaimer: The information contained in this section may have been updated after the patient was seen, as this information can be updated by other users. 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 trimester Maternal obesity affecting , antepartum Nausea and vomiting Obesity (BMI 35.0-39.9 without comorbidity) with 37 weeks completed gestation Pruritus of palm and soles of feet Rh negative status during Screening for genetic disease carrier status [employer] carrier screen 04/05 - negative for 14 conditions tested including CF, Fragile X and SMA Vaginitis Surgical History History of History of wisdom tooth extraction S/P section Social History Smoking Status: Never smoker second hand exposure: Yes alcohol intake: never substance use type: denies use current occupational status: unemployed Travel in the last 8 weeks: None household members: family housing: house current occupational exposures/hazards: No caffeine: Yes ROS Obtained: Yes Systems reviewed as appropriate & no additional complaints except as documented Physical Exam General General appearance: alert and in no apparent distress Head Head exam: atraumatic and normocephalic Eye Eye exam: Present PERRL and EOMI ENT ENT exam: Present mucous membranes moist Neck Neck exam: Present normal inspection Chest Chest inspection: Present normal inspection and symmetric chest wall rise Respiratory Respiratory exam: Present normal lung sounds bilaterally; Absent respiratory distress Cardiovascular Cardiovascular exam: Present regular rate and normal rhythm Abdominal Exam Abdominal exam: Present soft; Absent tenderness or rebound Extremities Exam Extremities exam: Present normal inspection Neurological Exam Neurological exam: Present alert Psychiatric Psychiatric exam: Present normal affect Skin Skin exam: Present warm and dry Medical Decision Making Mario Inquiry Pt receiving controlled substance: No Vital Signs: 02/11/23 16:15 Temperature 98.7 F Temperature Source Oral Pulse Rate [Left Radial] 96 H Respiratory Rate 14 Blood Pressure [Right Arm] 133/80 Blood Pressure Mean [Right Arm] 97 02 Sat by Pulse Oximetry 96 Oxygen Delivery Method Room Air Lab Data Lab Results 02/11/23 15:50: Urine Color Yellow, Urine Appearance Clear, Urine pH 7.0, Ur Specific Artie 1.015, Urine Protein Negative, Urine Glucose (UA) Negative, Urine Ketones Negative, Urine Blood Trace-i, Urine Nitrate Negative, Urine Bilirubin Negative, Urine Urobilinogen 0.2, Ur Leukocyte Esterase Negative, Urine RBC Occasional, Urine WBC None, Ur Squamous Epith Cells 3-5, Urine Bacteria Trace 02/11/23 16:16: WBC 6.0, RBC 5.19, Hgb 14.3, Hct 44.2, MCV 85.2, MCH 27.6, MCHC 32.4, RDW 15.2, Plt Count 226, MPV 9.9, Neut % (Auto) 75.9, Lymph % (Auto) 17.2, Ida % (Auto) 3.9, Eos % (Auto) 2.7, Baso % (Auto) 0.4, Neut # (Auto) 4.5, Lymph # (Auto) 1.0, Ida # (Auto) 0.2, Eos # (Auto) 0.2, Baso # (Auto) 0.0, Sodium 140, Potassium 4.4, Chloride 107, Carbon Dioxide 24, Anion Gap 13.4, BUN 16, Creatinine 0.80, Estimated Creat Clear 180, Estimated GFR 89, Est GFR ( Amer) 108, Glucose 95, Calcium 8.9, Total Bilirubin 0.5, AST 25, ALT 28, Lulu line Phosphatase 76, Total Protein 7.9 D, Albumin 4.3, Globulin 3.6 H, Albumin/Globulin Ratio 1.2, Lipase 32, Serum HCG, Qual Negative 02/11/23 16:16 02/11/23 16:16 Orders (Tests/Meds): ED MEDICATIONS Discontinued Medications Generic Name Dose Route Start Last Admin Trade Name Freq PRN Reason Stop Dose Admin Acetaminophen 1,000 mg 02/11/23 16:13 02/11/23 16:28 Acetaminophen 1,000mg/100ml Vial IV 02/11/23 16:14 1,000 mg ONCE ONE Administration Lactated Ringer's 1,000 mls @ 999 mls/hr 02/11/23 16:13 02/11/23 16:28 Lactated Ringer's 1000 Ml Bag IV 02/11/23 17:13 999 mls/hr .Q1H1M ONE Administration Iopamidol 75 ml 02/11/23 17:14 02/11/23 17:15 Iopamidol-370 (76%);100ml Bottle IV 02/11/23 17:15 75 ml ONCE ONE Administration Sodium Chloride 10 ml 02/11/23 17:14 02/11/23 17:15 Sodium Chloride 0.9% 10ml Syr (Rad Only) IV 02/11/23 17:15 10 ml ONCE ONE Administration ORDERS Category Date Time Status CT abdomen pelvis w con Stat Cat Scan 02/11/23 16:12 Completed CBC w/Auto Diff [Complete Blood Count Auto Diff] Stat Lab 02/11/23 16:16 Completed CMP [Comprehensive Metabolic Panel] Stat Lab 02/11/23 16:16 Completed HCG Qualitative, Serum Stat Lab 02/11/23 16:16 Completed Lipase Stat Lab 02/11/23 16:16 Completed UA [Urinalysis and Microscopic] Stat Lab 02/11/23 15:50 Completed Medical Decision Narrative: In summary patient is 22-year-old female with past medical history described above who presents emergency department for evaluation of low abdominal pain that is subacute. Patient is hemodynamically stable nontoxic-appearing upon arrival, afebrile. Differential diagnosis includes , IUD migration, appendicitis, among others. Workup will be conducted with hematologic labs, CT abdomen pelvis IV contrast, urinalysis. Initial interventions include crystalloid bolus, IV Tylenol. Workup reviewed by me, hematologic labs are nonactionable. CT imaging shows a malpositioned IUD in the body of the lower uterine segment extending into the myometrium and the outer margin of the myometrium slightly protruding through adjacent periuterine fat with adjacent mild periuterine right adnexal edema and free fluid. The case was discussed with gynecology who recommends follow-up tomorrow for IUD removal at their clinic. Upon repeat evaluation patient does not have peritonitis, was tolerating p.o. There were no other acute findings on her CT that would warrant further intervention at this time. Given this patient is appropriate for discharge and was given return precautions verbalized understanding. Critical Care Critical Care Time Critical Care Time: No
[2023-02-11 16:15] VITALS: BP 133/80; PULSE 96; RESP 14; TEMP 37.1; O2SAT 96; BMI 37.1
[2023-02-11] MEDS: LACTATED RINGERS 1000ML 1,000 ML 999 ML IV (16:28)
[2023-02-11] MEDS: ACETAMINOPHEN 1,000MG/100ML VIAL 1000 MG IV (16:28)
[2023-02-11 16:29] LABS: Chloride 107 mmol/L (98-107); Sodium 140 mmol/L (136-145)
[2023-02-11 16:30] LABS: Basophils % 0.4 % (0.1-2.0); Eosinophils # 0.2 K/mm3 (0.0-0.4); Eosinophils % 2.7 % (0.1-12.0); Hematocrit 44.2 % (37.0-47.0); Hemoglobin 14.3 g/dL (12.2-16.2); Lymphocytes % 17.2 % (10-50); Mean Corpuscular HGB Conc 32.4 g/dL (31.8-35.4); Mean Corpuscular Hemoglobin 27.6 pg (27.0-31.2); Mean Corpuscular Volume 85.2 fl (81-99); Mean Platelet Volume 9.9 fl (7.4-10.4); Monocytes # 0.2 K/mm3 (0.1-1.0); Monocytes % 3.9 % (1.7-9.3); Neutrophils # 4.5 K/mm3 (1.8-7.8); Neutrophils % 75.9 % (37.0-80.0); Platelet Count 226 K/mm3 (142-424); Potassium 4.4 mmoL/L (3.5-5.1); Red Blood Count 5.19 M/mm3 (4.20-5.40); Red Cell Distribution Width 15.2 % (11.5-17.5)
[2023-02-11 16:32] LABS: Alanine Aminotransferase 28 U/L (12-78); Alkaline Phosphatase 76 U/L (38-126); Anion Gap 13.4 mEq/L (5-15); Aspartate Amino Transferase 25 U/L (14-36); Bilirubin,Total 0.5 mg/dl (0.2-1.3); Blood Urea Nitrogen 16 mg/dl (7-17); Carbon Dioxide 24 mmol/L (22.0-30.0); Creatinine Clearance Estimated 180 mL/min (50-200); Estimated Glomerular Filt Rate 89 ml/min (>60); GFR (African American) 108 ML/MIN (>60); Lipase 32 U/L (23-300)
[2023-02-11 16:33] LABS: Albumin Level 4.3 g/dl (3.5-5.0); Albumin/Globulin Ratio 1.2 (1.1-1.8); Calcium 8.9 mg/dl (8.4-10.2); Globulin 3.6 g/dL (1.3-3.2); Glucose 95 mg/dl (74-100); Total Protein,Serum 7.9 g/dl (6.3-8.2)
[2023-02-11 16:37] LABS: Appearance,Urine CLEAR (Clear); Bilirubin,Urine Negative (Negative); Blood, Urine TRACE-I (Negative); Color,Urine YELLOW (Yellow); Glucose,Urine (UA) Negative (Negative); Ketones,Urine Negative (Negative); Leukocyte Esterase,Urine Negative (Negative); Microscopic, Urine URINE MICROSCOPIC (MICROSCOPIC); Nitrate,Urine Negative (Negative); Protein,Urine Negative (Negative); Specific Gravity, Urine 1.015 (1.005-1.030); Urobilinogen,Urine 0.2 EU/dl (0.2)
[2023-02-11 16:45] LABS: HCG Qualitative, Serum Negative (Negative)
[2023-02-11 16:49] LABS: RBC,Urine Occasional #/hpf (0-3)
[2023-02-11 16:50] LABS: Bacteria,Urine Trace /lpf
[2023-02-11] MEDS: IOPAMIDOL-370 (76%);100ML BOTTLE 75 ML IV (17:15)
[2023-02-11] MEDS: SODIUM CHLORIDE 0.9% 10ML SYR (RAD ONLY) 10 ML IV (17:15)
--- NOTE | 2023-02-11 17:45 | PC.NURSE ---
pt was given ice chips
--- NOTE | 2023-02-11 18:15 | PC.NURSE ---
[employer]ATE SAF[employer]Y DIRECTOR PAGED
--- NOTE | 2023-02-11 18:16 | PC.NURSE ---
DR GORDILLO SPEAKING WITH [employer] P[employer] ENGINEERING TEACHER
[2023-02-11 18:24] VITALS: BP 117/70; PULSE 74; RESP 18; TEMP 36.4; O2SAT 98
== END 2023-02-11 18:29 | disposition home or self-care (01) ==
PROVIDERS: Emergency Provider Emergency Medicine
DX: R10.31 Right lower quadrant pain (principal); R10.32 Left lower quadrant pain; T83.32XA Displacement of intrauterine contraceptive device, initial encounter
CPT/HCPCS: 74177; 80053; 81001; 83690; 84703; 85025; 96361; 96374; 99285; J0131; Q9967

== ENCOUNTER 2023-05-26 18:46 | Emergency (ER) | payer SELFPAY ==
[2023-05-26 18:48] VITALS: BP 122/68; PULSE 74; RESP 15; TEMP 37.1; O2SAT 100; BMI 37.8
--- NOTE | 2023-05-26 19:20 | ED_ITS ---
Discharge Plan Disposition Patient Disposition: Home, Self-Care Prescriptions Prescriptions: New ondansetron 4 mg tablet,disintegrating 4 mg PO Q8H PRN (Reason: nausea and vomiting) 4 Days Qty: 12 0RF No Action Kyleena 17.5 mcg/24 hrs (5 yrs) 19.5 mg intrauterine device intrauterine buspirone 5 mg tablet 5 mg PO TID Qty: 90 2RF Referrals Follow up/Referrals: Provider,Referral, MD [Primary Care Provider] - See instructions Activity Restrictions/Add. Instructions Additional Instructions/Restrictions: At this time it was felt you are safe to be discharged home. If new or worsening symptoms please do not hesitate to return the emergency department. If symptoms persist please follow-up with your family doctor as you are able. Please take your medication as prescribed. Clinical Impressions Clinical Impression: Vomiting, Diarrhea Instructions Patient Instructions: DI for Diarrhea and Traveler's Diarrhea -- Adult, DI for Diarrhea and Traveler's Diarrhea -- Child, DI for Nausea -- Adult, DI for Nausea -- Child Discharge ED Provider: Robb Francois General Adult HPI General Chief complaint: Nausea/Vomiting/Diarrhea Stated complaint: vomiting,diarrhea,unable to ear or drink Time Seen by Provider: 05/26/23 18:56 Mode of Arrival: Ambulatory Source of Information: Patient Limitations: No Limitations Description of Symptoms (Recalled from ER Triage Doc. by RN): pt presents to ED with c/o n/v/d. nausea and vomitting began this morning at 0500. pt reports that diarrhea began last night. no known fever. History of Present Illness HPI narrative: Patient is a 22-year-old female with no pertinent past medical history who presents emergency department for evaluation of vomiting and diarrhea. Onset was acute over the last 48 hours, nonbloody. Due to persistent symptoms she presents here for continued evaluation. Related Data Home Medications Medication Instructions Recorded Confirmed levonorgestrel 17.5 mcg/24 hrs intrauterine 11/16/22 02/13/23 (5yrs) 19.5mg intrauterine device (Kyleena) Previous Rx's Medication Instructions Recorded buspirone 5 mg tablet 5 mg PO TID #90 tabs 11/13/22 ondansetron 4 mg disintegrating 4 mg PO Q8H PRN nausea and 05/26/23 tablet vomiting 4 days #12 tabs Allergies Allergy/AdvReac Type Severity Reaction Status Date / Time No Known Allergies Allergy Verified 02/13/23 09:59 [facility] Disclaimer: The information contained in this section may have been updated after the patient was seen, as this information can be updated by other users. 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 Pruritus of palm Hemorrhoids during Screening for genetic disease carrier status Vaginitis Depression Depression affecting , antepartum Rh negative status during Nausea and vomiting Obesity (BMI 35.0-39.9 without comorbidity) Maternal obesity affecting , antepartum Endometriosis Surgical History S/P section History of wisdom tooth extraction History of Social History Smoking Status: Current every day smoker tobacco type: cigarettes packs per day: 1 second hand exposure: Yes alcohol intake: never substance use type: denies use current occupational status: unemployed Travel in the last 8 weeks: None household members: family housing: house current occupational exposures/hazards: No caffeine: Yes ROS Obtained: Yes Systems reviewed as appropriate & no additional complaints except as documented Physical Exam General General appearance: alert and in no apparent distress Head Head exam: atraumatic and normocephalic Eye Eye exam: Present PERRL ENT ENT exam: Present mucous membranes moist Neck Neck exam: Present normal inspection Chest Chest inspection: Present normal inspection and symmetric chest wall rise Respiratory Respiratory exam: Absent respiratory distress Cardiovascular Cardiovascular exam: Present regular rate and normal rhythm Abdominal Exam Abdominal exam: Present soft; Absent tenderness, guarding or rebound Extremities Exam Extremities exam: Present normal inspection Neurological Exam Neurological exam: Present alert Psychiatric Psychiatric exam: Present normal affect Skin Skin exam: Present warm and dry Medical Decision Making Mario Inquiry Pt receiving controlled substance: No Vital Signs: 05/26/23 18:48 Temperature 98.8 F Temperature Source Oral Pulse Rate [Left Radial] 74 Respiratory Rate 15 Blood Pressure [Right Arm] 122/68 Blood Pressure Mean [Right Arm] 86 02 Sat by Pulse Oximetry 100 Oxygen Delivery Method Room Air Lab Data Lab Results 05/26/23 19:58: Urine Color Yellow, Urine Appearance Clear, Urine pH 7.0, Ur Specific [place] 1.025, Urine Protein Negative, Urine Glucose (UA) Negative, Urine Ketones 2+, Urine Blood Negative, Urine Nitrate Negative, Urine Bilirubin 1+ A, Urine Urobilinogen 0.2, Ur Leukocyte Esterase Negative, Urine RBC None, Urine WBC Occasional, Ur Squamous Epith Cells 5-10, Urine Bacteria 1+, Urine HCG, Qual Negative Orders (Tests/Meds): ED MEDICATIONS Discontinued Medications Generic Name Dose Route Start Last Admin Trade Name Yordy PRN Reason Stop Dose Admin Ondansetron HCl 4 mg 05/26/23 19:19 05/26/23 19:29 Ondansetron 4mg Odt SL 05/26/23 19:20 4 mg ONCE ONE Administration ORDERS Category Date Time Status UA [Urinalysis and Microscopic] Stat Lab 05/26/23 19:58 Completed Urine , HCG Qual. Stat Lab 05/26/23 19:58 Completed Medical Decision Narrative: In summary patient is a 22-year-old female past medical history described above presents emergency department for evaluation of nonbloody vomiting and diarrhea. Patient is hemodynamically stable nontoxic-appearing upon arrival, afebrile. Based on history and physical exam patient likely has nonspecific viral syndrome. Differential includes , urinary tract infection, among others. Given that patient has a benign abdominal exam workup with labs and i maging was considered but will be deferred. Limited workup will be conducted with test, UA. Initial interventions include Zofran and p.o. trial. Initial workup reviewed by me, hCG negative, urinalysis interpreted by me and not consistent with infection. Patient with p.o. trial with successful and was well-appearing. Given this patient is appropriate for discharge at this time and will be discharged with a course of Zofran. Critical Care Critical Care Time Critical Care Time: No
[2023-05-26] MEDS: ONDANSETRON 4MG ODT 4 MG SL (19:29)
[2023-05-26 20:08] LABS: Microscopic, Urine URINE MICROSCOPIC (MICROSCOPIC)
[2023-05-26 20:14] LABS: Appearance,Urine CLEAR (Clear); Bilirubin,Urine 1+ (Negative); Blood, Urine Negative (Negative); Color,Urine YELLOW (Yellow); Glucose,Urine (UA) Negative (Negative); Ketones,Urine 2+ (Negative); Leukocyte Esterase,Urine Negative (Negative); Nitrate,Urine Negative (Negative); Protein,Urine Negative (Negative); Specific Gravity, Urine 1.025 (1.005-1.030); Urobilinogen,Urine 0.2 EU/dl (0.2)
[2023-05-26 20:15] LABS: Urine Pregnancy, HCG Qual. Negative (Negative)
[2023-05-26 20:35] LABS: Bacteria,Urine 1+ /lpf
[2023-05-26 20:36] LABS: WBC,Urine Occasional #/hpf (0-3)
[2023-05-26 21:52] VITALS: BP 130/67; PULSE 64; RESP 16; TEMP 36.6; O2SAT 99
== END 2023-05-26 21:53 | disposition home or self-care (01) ==
PROVIDERS: Emergency Provider Emergency Medicine
DX: R11.2 Nausea with vomiting, unspecified (principal); R19.7 Diarrhea, unspecified
CPT/HCPCS: 81001; 81025; 99283

== ENCOUNTER 2023-06-19 04:05 | Emergency (ER) | payer SELFPAY ==
--- NOTE | 2023-06-19 04:11 | ED_ITS ---
Discharge Plan Disposition Patient Disposition: Home, Self-Care Prescriptions Prescriptions: New sulfamethoxazole-trimethoprim 800-160 mg tablet 1 tab PO BID 7 Days Qty: 14 0RF No Action Kyleena 17.5 mcg/24 hrs (5 yrs) 19.5 mg intrauterine device intrauterine buspirone 5 mg tablet 5 mg PO TID Qty: 90 2RF ondansetron 4 mg tablet,disintegrating 4 mg PO Q8H PRN (Reason: nausea and vomiting) 4 Days Qty: 12 0RF Referrals Follow up/Referrals: Provider,Referral, MD [Primary Care Provider] - See instructions Activity Restrictions/Add. Instructions Additional Instructions/Restrictions: Please take antibiotics as prescribed for treatment of urinary tract infection. Please follow-up with your primary care provider. Please return to the emergency department if you develop any new or worsening symptoms or become concerned for your health. Clinical Impressions Clinical Impression: Cystitis Instructions Patient Instructions: DI for Urinary Tract Infection (UTI), DI for Urinary Tract Infection in Children Discharge ED Provider: Jose Angel Ayala General Adult HPI General Chief complaint: Urogenital-Female Stated complaint: lower abd pain, bleeding in genital area Time Seen by Provider: 06/19/23 04:08 History of Present Illness HPI narrative: 42-year-old female presents with suprapubic abdominal pain, bladder spasms dark- colored urine. She reports it feels like when she has had urinary tract infections in the past. She reports urinary urgency, frequency, dysuria. She denies any fever or systemic symptoms. She denies any pain in her flanks. She denies any history of kidney stones. She does not think she is , she is midway through her menstrual cycle at this time. She denies any vaginal bleeding or discharge. Related Data Home Medications Medication Instructions Recorded Confirmed levonorgestrel 17.5 mcg/24 hr (up intrauterine 11/16/22 02/13/23 to 5 yrs) 19.5mg intrauterine device (Kyleena) Previous Rx's Medication Instructions Recorded buspirone 5 mg tablet 5 mg PO TID #90 tabs 11/13/22 ondansetron 4 mg disintegrating 4 mg PO Q8H PRN nausea and 05/26/23 tablet vomiting 4 days #12 tabs sulfamethoxazole 800 1 tab PO BID 7 days #14 tabs 06/19/23 mg-trimethoprim 160 mg tablet Allergies Allergy/AdvReac Type Severity Reaction Status Date / Time No Known Allergies Allergy Verified 02/13/23 09:59 [facility] Disclaimer: The information contained in this section may have been updated after the patient was seen, as this information can be updated by other users. 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 Pruritus of palm Hemorrhoids during Screening for genetic disease carrier status Vaginitis Depression Depression affecting , antepartum Rh negative status during Nausea and vomiting Obesity (BMI 35.0-39.9 without comorbidity) Maternal obesity affecting , antepartum Endometriosis Surgical History S/P section History of wisdom tooth extraction History of Social History Smoking Status: Current every day smoker tobacco type: cigarettes packs per day: 1 second hand exposure: Yes alcohol intake: never substance use type: denies use current occupational status: unemployed Travel in the last 8 weeks: None household members: family housing: house current occupational exposures/hazards: No caffeine: Yes ROS Obtained: Yes All systems reviewed & no additional complaints except as documented Physical Exam General General appearance: alert and in no apparent distress Head Head exam: atraumatic and normocephalic Eye Eye exam: Present normal appearance, PERRL and EOMI ENT ENT exam: Present normal oropharynx and normal external ear exam Neck Neck exam: Present normal inspection and full ROM Chest Chest inspection: Present normal inspection and symmetric chest wall rise; Absent tenderness Respiratory Respiratory exam: Present normal lung sounds bilaterally; Absent respiratory distress Cardiovascular Cardiovascular exam: Present regular rate and normal rhythm Abdominal Exam Abdominal exam: Present soft and tenderness (Mild, suprapubic); Absent distention or guarding Extremities Exam Extremities exam: Present normal inspection; Absent edema or joint swelling Back Exam Back exam: Present normal inspection; Absent tenderness Neurological Exam Neurological exam: Present alert and oriented X3; Absent motor sensory deficit Psychiatric Psychiatric exam: Present normal affect and normal mood Skin Skin exam: Present warm, dry and normal color Lymphatic Lymphatic Findings: no adenopathy Medical Decision Making Medical Records Medical records reviewed: Yes I reviewed the patient's medical records. Mario Inquiry Pt receiving controlled substance: No Mario was queried for this patient: No Vital Signs: 06/19/23 04:21 06/19/23 04:30 06/19/23 05:14 Temperature 98.7 F 98.7 F Temperature Source Oral Oral Pulse Rate 73 68 Pulse Rate [Left Radial] 83 Respiratory Rate 18 18 Blood Pressure 124/97 H 124/97 H Blood Pressure [Right Arm] 134/91 H Blood Pressure Mean [Right Arm] 105 Blood Pressure Source Automatic Cuff Blood Pressure Source [Right Arm] Automatic Cuff Blood Pressure Position Sitting Blood Pressure Position [Right Arm] Sitting 02 Sat by Pulse Oximetry 96 97 Oxygen Delivery Method Room Air Room Air Lab Data Lab results reviewed: Yes I reviewed the patient's lab results. Lab Results 06/19/23 04:18: Urine Color Jovana, Urine Appearance Cloudy, Urine pH 7.0, Ur Specific [place] >= 1.030, Urine Protein 2+, Urine Glucose (UA) Negative, Urine Ketones Trace, Urine Blood 3+, Urine Nitrate Positive, Urine Bilirubin Negative, Urine Urobilinogen 2.0, Ur Leukocyte Esterase 2+ A, Urine RBC 10-20, Urine WBC 10-20, Ur Squamous Epith Cells 3-5, Urine Bacteria 2+, Urine Mucus 1+, Urine HCG, Qual Negative Orders (Tests/Meds): ED MEDICATIONS Discontinued Medications Generic Name Dose Route Start Last Admin Trade Name Freq PRN Reason Stop Dose Admin Acetaminophen 1,000 mg 06/19/23 04:30 06/19/23 04:36 Acetaminophen 500mg Tab PO 06/19/23 04:31 1,000 mg ONCE ONE Administration Ketorolac Tromethamine 30 mg 06/19/23 04:30 06/19/23 04:36 Ketorolac 30mg/Ml Vial IM 06/19/23 04:31 30 mg ONCE ONE Administration Ondansetron HCl 4 mg 06/19/23 04:30 06/19/23 04:36 Ondansetron 4mg Odt SL 06/19/23 04:31 4 mg ONCE ONE Administration Trimethoprim/Sulfamethoxazole 1 each 06/19/23 05:04 06/19/23 05:11 Sulfa/Trimethoprim 1 Tablet PO 06/19/23 05:05 1 each ONCE ONE Administration ORDERS Category Date Time Status UA [Urinalysis and Microscopic] Stat Lab 06/19/23 04:18 Completed Urine , HCG Qual. Stat Lab 06/19/23 04:18 Completed Urine Culture Stat Micro 06/19/23 04:18 Received Medical Decision Narrative: 42-year-old female presents with relatively acute onset suprapubic abdominal pain, urinary urgency, frequency, dysuria, dark-colored urine concerning for blood.. History was obtained interactive discussion with patient, family, chart review.. On arrival, patient is [afebrile, hemodynamically stable, satting appropriately, alert, oriented x4, GCS 15], moving all extremities spontaneously. Full physical exam performed and significant for mild suprapubic abdominal tenderness. Differential includes but is not limited to UTI, pyelonephritis, ureterolithiasis, ectopic , ovarian torsion. History and exam does not appear consistent with torsion at this time.. Patient was given IM Toradol, p.o. Tylenol, Zofran for symptomatic management and correction of underlying abnormalities. Workup initiated including urine , UA. On re-evaluation, patient [remains afebrile, HD stable.] Reports symptomatic improvement. Laboratory workup independently interpreted by me and significant for negative test, urine consistent with infection, 20 RBCs BCs, nitrate positive. 2+ bacteria. CT/ultrasound imaging of the/pelvis was considered, but deemed unnecessary due to history and exam findings. Given patient history, exam and workup, patient's presentation most likely represents acute cystitis. Discussed with patient regarding her presentation. She was given dose of Bactrim in ED patient was discharged with prescription for Bactrim. Procedures Risk/Benefits of Procedure(s) Were Explained: Yes Critical Care Critical Care Time Critical Care Time: No
[2023-06-19 04:21] VITALS: BP 134/91; PULSE 83; RESP 18; TEMP 37.1; O2SAT 96; BMI 37.4
[2023-06-19 04:30] VITALS: BP 124/97; PULSE 73; O2SAT 97
[2023-06-19] MEDS: ACETAMINOPHEN 500MG TAB 1000 MG PO (04:36)
[2023-06-19] MEDS: ONDANSETRON 4MG ODT 4 MG SL (04:36)
[2023-06-19] MEDS: KETOROLAC 30MG/ML VIAL 30 MG IM (04:36)
[2023-06-19 04:40] LABS: Microscopic, Urine URINE MICROSCOPIC (MICROSCOPIC)
[2023-06-19 04:41] LABS: Appearance,Urine CLOUDY (Clear); Blood, Urine 3+ (Negative); Color,Urine AMBER (Yellow); Glucose,Urine (UA) Negative (Negative); Ketones,Urine TRACE (Negative); Leukocyte Esterase,Urine 2+ (Negative); Nitrate,Urine POSITIVE (Negative); Protein,Urine 2+ (Negative); Specific Gravity, Urine >= 1.030 (1.005-1.030)
[2023-06-19 04:45] LABS: Urine Pregnancy, HCG Qual. Negative (Negative)
[2023-06-19 04:46] LABS: Bilirubin,Urine Negative (Negative)
[2023-06-19] MEDS: SULFA/TRIMETHOPRIM 1 TABLET 1 EACH PO (05:11)
[2023-06-19 05:14] VITALS: BP 124/97; PULSE 68; RESP 18; TEMP 37.1; O2SAT 99
[2023-06-19 05:25] LABS: Bacteria,Urine 2+ /lpf; Mucus,Urine 1+ /lpf
--- NOTE | 2023-06-22 09:31 | PC.NURSE ---
Reviewed urine culture with Dr. Todd, he would like to change abx to Macrobid 100mg PO BID for 5 days. I attempted to reach pt, no answer but was able to leave a voicemail to return call. Pt uses [facility] pharmacy, called in prescription to them.
--- NOTE | 2023-06-22 22:29 | PC.NURSE ---
patient called back and was notified that a new prescription was sent into [facility] per her urine culture results. pt verbalize understanding
== END 2023-06-19 05:18 | disposition home or self-care (01) ==
PROVIDERS: Emergency Provider Emergency Medicine
DX: N30.00 Acute cystitis without hematuria (principal); B96.29 Other Escherichia coli [E. coli] as the cause of diseases classified elsewhere; R10.30 Lower abdominal pain, unspecified; R30.0 Dysuria
CPT/HCPCS: 81001; 81025; 87086; 87088; 87186; 96372; 99283

== ENCOUNTER 2023-07-08 15:58 | Emergency (ER) | payer SELFPAY ==
[2023-07-08 17:00] VITALS: BP 114/74; PULSE 61; RESP 19; TEMP 37.1; O2SAT 97; BMI 37.3
[2023-07-08 17:14] LABS: Apearance,Urine Cloudy (Clear); Bilirubin,Urine Negative (Negative); Blood, Urine Negative (Negative); Color,Urine Yellow (Yellow); Glucose,Urine (UA) Negative (Negative); Ketones,Urine Negative (Negative); PH,Urine 6.5 (5.0-8.5); Protein,Urine Negative (Negative); Specific Gravity, Urine 1.015 (1.005-1.030); UTC Leukocyte Esterase,Urine Negative (Negative); UTC Nitrate,Urine Negative (Negative); UTC Pregnancy Test, Urine Negative (Negative); Urobilinogen,Urine 0.2 EU/dl (0.2)
[2023-07-08 17:26] LABS: Microscopic, Urine URINE MICROSCOPIC (MICROSCOPIC)
[2023-07-08 17:33] LABS: Appearance,Urine CLEAR (Clear); Bilirubin,Urine Negative (Negative); Blood, Urine Negative (Negative); Color,Urine YELLOW (Yellow); Glucose,Urine (UA) Negative (Negative); Ketones,Urine Negative (Negative); Leukocyte Esterase,Urine Negative (Negative); Nitrate,Urine Negative (Negative); PH,Urine 6.5 (5.0-8.5); Protein,Urine Negative (Negative); Specific Gravity, Urine 1.015 (1.005-1.030); Urobilinogen,Urine 0.2 EU/dl (0.2)
--- NOTE | 2023-07-08 17:39 | ED_ITS ---
Discharge Plan Disposition Patient Disposition: Home, Self-Care Condition: Good Referrals Follow up/Referrals: Provider,Referral, MD [Primary Care Provider] - See instructions Activity Restrictions/Add. Instructions Additional Instructions/Restrictions: Follow up in 3-5 days for your test results with your Family Doctor or OBGYN No sex until results back and negative Return if needed Clinical Impressions Clinical Impression: Possible exposure to STD Instructions Patient Instructions: Informing Partners of STI Patients Reduces Ongoing and Recurrent Sexually T, How to Detect and Treat STDs Discharge ED Provider: [place]ona [place] [facility] [place] General Stated complaint: poss STD Mode of Arrival: Ambulatory Source of Information: Patient Limitations: No Limitations Time Seen by Provider: 07/08/23 17:39 Description of Symptoms (Recalled from Triage Doc. by RN): PATIENT C/O BURNING AND DISCOMFOR WITH URINATION. SHE STATES SHE RECENTLY FINISHED AND ANTIBIOTIC FOR A UTI, WHICH SHE REPORTS HER SYMPTOMS WENT AWAY. SHE IS REQUESTING TESTING FOR STD, REPORTS BEING INTIMATE WITH HER EX-BOYFRIEND AND IS UNSURE IF HE IS EXPOSED TO STD'S THROUGH ANOTHER PARTNER HEENT Symptoms (Recalled from RN notes): No Resp Symptoms (Recalled from RN notes): No Skin Symptoms (Recalled from RN notes): No MS Symptoms (Recalled from RN notes): No Functional Status (Recalled from RN notes): WNL History of Present Illness Provider Complaint: Patient states that recently she had some burning with urination and she was treated with antibotics States the symptoms got better and went away but she also slept with her ex and now she is worried she may have be en exposed to STD so she came in wanted to get checked for chlamydia and gonorrhea Related Data Allergies Allergy/AdvReac Type Severity Reaction Status Date / Time No Known Allergies Allergy Verified 02/13/23 09:59 Worker's Comp Is this a Worker's Comp case?: No [facility] Disclaimer: The information contained in this section may have been updated after the patient was seen, as this information can be updated by other users. 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 Pruritus of palm Hemorrhoids during Screening for genetic disease carrier status Vaginitis Depression Depression affecting , antepartum Rh negative status during Nausea and vomiting Obesity (BMI 35.0-39.9 without comorbidity) Maternal obesity affecting , antepartum Endometriosis Surgical History S/P section History of wisdom tooth extraction History of Social History Smoking Status: Current every day smoker tobacco type: cigarettes packs per day: 1 second hand exposure: Yes alcohol intake: never substance use type: denies use current occupational status: unemployed Travel in the last 8 weeks: None household members: family housing: house current occupational exposures/hazards: No caffeine: Yes ROS Obtained: Yes All systems reviewed & no additional complaints except as documented and Yes Systems reviewed as appropriate & no additional complaints except as documented Constitutional Constitutional: Reports system reviewed and no additional complaints, except as documented and Reports as per HPI ENT Ears, Nose, Mouth, and Throat: Reports system reviewed and no additional complaints, except as documented and Reports as per HPI Cardiovascular Cardiovascular: Reports system reviewed and no additional complaints, except as documented and Reports as per HPI Respiratory Respiratory: Reports system reviewed and no additional complaints, except as documented and Reports as per HPI Genitourinary Female Genitourinary: Reports system reviewed and no additional complaints, except as documented and Reports as per HPI Physical Exam General General appearance: alert and in no apparent distress ENT ENT exam: Present mucous membranes moist Respiratory Respiratory exam: Present normal lung sounds bilaterally; Absent respiratory distress or wheezes Cardiovascular Cardiovascular exam: Present regular rate, normal rhythm and normal heart sounds Abdominal Exam Abdominal exam: Present soft and normal bowel sounds; Absent distention or tenderness Neurological Exam Neurological exam: Present alert, oriented X3 and normal gait Medical Decision Making Mario Inquiry Pt receiving controlled substance: No Mario was queried for this patient: No Vital Signs: 07/08/23 17:00 Temperature 98.8 F Temperature Source Oral Pulse Rate [Left Brachial] 61 Respiratory Rate 19 Blood Pressure [Left Arm] 114/74 Blood Pressure Mean [Left Arm] 87 Blood Pressure Source [Left Arm] Automatic Cuff Blood Pressure Position [Left Arm] Sitting 02 Sat by Pulse Oximetry 97 Oxygen Delivery Method Room Air Lab Data Lab results reviewed: Yes I reviewed the patient's lab results. Lab Results 07/08/23 16:50: Urine Color Yellow, Urine Appearance Clear, Urine pH 6.5, Ur Specific [place] 1.015, Urine Protein Negative, Urine Glucose (UA) Negative, Urine Ketones Negative, Urine Blood Negative, Urine Nitrate Negative, Urine Bilirubin Negative, Urine Urobilinogen 0.2, Ur Leukocyte Esterase Negative 07/08/23 17:12: Urine Color Yellow, Urine Appearance Cloudy, Urine pH 6.5, Ur Specific [place] 1.015, Urine Protein Negative, Urine Glucose (UA) Negative, Urine Ketones Negative, Urine Blood Negative, Urine Nitrate Negative, Urine Bilirubin Negative, Urine Urobilinogen 0.2, Ur Leukocyte Esterase Negative, Tst Clinic Negative Orders (Tests/Meds): ORDERS Category Date Time Status UA [Urinalysis and Microscopic] Stat Lab 07/08/23 16:50 Results
[2023-07-08 17:49] VITALS: BP 114/74; PULSE 61; RESP 19; TEMP 37.1; O2SAT 97
[2023-07-11 07:12] LABS: Neisseria gonorrhoeae, NAA Negative (Negative)
== END 2023-07-08 17:51 | disposition home or self-care (01) ==
PROVIDERS: Emergency Provider Nurse Practitioner
DX: Z20.2 Contact with and (suspected) exposure to infections with a predominantly sexual mode of transmission (principal)
CPT/HCPCS: 81001; 81003; 81025; 87491; 87591; 99212; G0463

== ENCOUNTER 2023-07-24 11:58 | Outpatient (CLI) | payer OTHER, SELFPAY ==
[2023-07-25 09:21] LABS: HIV (1&2) Antibody Rapid NON REACTIVE
[2023-07-25 12:20] LABS: HBsAg Screen Negative (Negative); HCV Ab Non Reactive (Non Reactive); Hep A Ab, IGM Negative (Negative); Hep B Core Ab, IgM Negative (Negative)
[2023-07-25 13:11] LABS: Rapid Plasma Reagin Ab Titer Non Reactive titer (NonRea<1:1)
== END 2023-07-24 23:59 | disposition home or self-care (01) ==
LOC: LAB 11:59
PROVIDERS: Visit Provider Obstetrics & Gynecology
DX: Z72.51 High risk heterosexual behavior (principal); Z20.2 Contact with and (suspected) exposure to infections with a predominantly sexual mode of transmission
CPT/HCPCS: 36415; 80074; 86593

== ENCOUNTER 2023-08-19 18:20 | Emergency (ER) | payer OTHER, SELFPAY ==
[2023-08-19 18:20] VITALS: BP 132/74; PULSE 73; RESP 16; TEMP 36.7; O2SAT 98; BMI 35.9
--- NOTE | 2023-08-19 18:22 | ED_ITS ---
<Statement entered by Robb Francois MD - 08/19/23 23:24> I was consulted by the CINTHIA, and we discussed the complexity of the problems being addressed. I approved the treatment and management plan for this patient's care in the emergency department, thus performing a substantive portion of the medical decision making. Workup ultimately remarkable for ruptured left ovarian cyst without active extract, patient is hemodynamically stable workup is otherwise nonactionable she is appropriate for outpatient management at this time. Robb Francois MD Discharge Plan Disposition Patient Disposition: Home, Self-Care Condition: Good Prescriptions Prescriptions: No Action No Known Home Medications Referrals Follow up/Referrals: Provider,Referral, [Primary Care Provider] - See instructions Clinical Impressions Clinical Impression: Acute abdominal pain, Ovarian cyst rupture Instructions Patient Instructions: DI for Acute Abdominal Pain Discharge ED Provider: Robb Francois General Adult HPI General Chief complaint: Abdominal Pain Stated complaint: abd/back pain Time Seen by Provider: 08/19/23 18:22 History of Present Illness HPI narrative: Patient presents for approximately a month of lower abdomen/suprapubic pain. However the last 3 days she started having low back pain associated with it. She denies chest pain shortness of breath fever chills hemoptysis hematochezia melena nausea vomiting diarrhea vaginal discharge known . There are no aggravating or relieving factors. Related Data Home Medications Medication Instructions Recorded Confirmed No Known Home Medications 07/24/23 07/24/23 Allergies Allergy/AdvReac Type Severity Reaction Status Date / Time No Known Allergies Allergy Verified 07/24/23 09:52 [facility] Disclaimer: The information contained in this section may have been updated after the patient was seen, as this information can be updated by other users. Medical History (Updated 08/19/23 @ 20:22 by WEI Adamson) High risk sexual behavior Pelvic pain Anxiety Acute blood loss anemia Pruritus of palm Vaginitis Depression Nausea and vomiting Endometriosis Surgical History (Updated 07/24/23 @ 10:07 by RAINER Marks) History of wisdom tooth extraction History of Family History (Updated 07/24/23 @ 09:53 by RAINER Marks) Other No significant family history Social History (Updated 07/24/23 @ 10:06 by RAINER Marks) Smoking Status: Current every day smoker tobacco type: e-cigarettes second hand exposure: Yes alcohol intake: never substance use type: denies use current occupational status: unemployed Travel in the last 8 weeks: None household members: family housing: house current occupational exposures/hazards: No caffeine: Yes ROS Obtained: Yes Systems reviewed as appropriate & no additional complaints except as documented Physical Exam General General appearance: alert and in no apparent distress Respiratory Respiratory exam: Present normal lung sounds bilaterally Cardiovascular Cardiovascular exam: Present regular rate and normal rhythm Abdominal Exam Abdominal exam: Present soft, tenderness (In the bilateral lower quadrants and suprapubic area) and normal bowel sounds; Absent guarding, rebound or rigidity Back Exam Back exam: Present normal inspection, full ROM and tenderness (Bilateral lumbar sacral area but nonreproducible on palpation) Neurological Exam Neurological exam: Present alert and oriented X3 Medical Decision Making Medical Records Medical records reviewed: Yes I reviewed the patient's medical records. Mario Inquiry Pt receiving controlled substance: No Vital Signs: 08/19/23 18:20 Temperature 98.0 F Temperature Source Oral Pulse Rate [Radial] 73 Respiratory Rate 16 Blood Pressure [Right Arm] 132/74 Blood Pressure Mean [Right Arm] 93 Blood Pressure Source [Right Arm] Automatic Cuff Blood Pressure Position [Right Arm] Sitting 02 Sat by Pulse Oximetry 98 Oxygen Delivery Method Room Air Lab Data Lab results reviewed: Yes I reviewed the patient's lab results. Lab Results 08/19/23 18:31: WBC 7.9, RBC 4.60, Hgb 13.2, Hct 40.0, MCV 86.9, MCH 28.8, MCHC 33.1, RDW 14.0, Plt Count 265, MPV 9.9, Neut % (Auto) 65.9, Lymph % (Auto) 26.5, Wirt % (Auto) 5.5, Eos % (Auto) 1.3, Baso % (Auto) 0.8, Neut # (Auto) 5.2, Lymph # (Auto) 2.1, Wirt # (Auto) 0.4, Eos # (Auto) 0.1, Baso # (Auto) 0.1, Sodium 140, Potassium 3.7, Chloride 108 H, Carbon Dioxide 24, Anion Gap 11.7, BUN 10, Creatinine 0.80, Estimated Creat Clear 175, Estimated GFR 89, Est GFR ( Amer) 108, Glucose 104 H, Calcium 9.5, Total Bilirubin 0.5, AST 31, ALT 32, Alkaline Phosphatase 77, Total Protein 8.1, Albumin 4.3, Globulin 3.8 H, Albumin/Globulin Ratio 1.1, Procalcitonin < 0.030, Serum HCG, Qual Negative, Urine Color Yellow, Urine Appearance Clear, Urine pH 7.0, Ur Specific Roxton 1.010, Urine Protein Negative, Urine Glucose (UA) Negative, Urine Ketones Negative, Urine Blood Negative, Urine Nitrate Negative, Urine Bilirubin Negative, Urine Urobilinogen 0.2, Ur Leukocyte Esterase Trace, Urine RBC None, Urine WBC Occasional, Ur Squamous Epith Cells Occasional, Urine Bacteria Trace 08/19/23 18:31 08/19/23 18:31 Orders (Tests/Meds): ED MEDICATIONS Generic Name Dose Route Start Last Admin Trade Name Freq PRN Reason Stop Dose Admin Sodium Chloride 10 ml 08/19/23 19:10 08/19/23 19:11 Sodium Chloride 0.9% 10ml Syr (Rad Only) IV 09/18/23 19:09 10 ml NEEDED PRN Administration Maintain IV Site Discontinued Medications Generic Name Dose Route Start Last Admin Trade Name Freq PRN Reason Stop Dose Admin Acetaminophen 1,000 mg 08/19/23 18:32 08/19/23 18:47 Acetaminophen 1,000mg/100ml Vial IV 08/19/23 18:33 1,000 mg ONCE ONE Administration Lactated Ringer's 1,000 mls @ 999 mls/hr 08/19/23 18:32 08/19/23 18:47 Lactated Ringer's 1000 Ml Bag IV 08/19/23 19:32 999 mls/hr .Q1H1M ONE Administration Iopamidol 75 ml 08/19/23 19:10 08/19/23 19:11 Iopamidol-370 (76%);100ml Bottle IV 08/19/23 19:11 75 ml ONCE ONE Administration ORDERS Category Date Time Status CT abdomen pelvis w con Stat Cat Scan 08/19/23 18:34 Completed CBC w/Auto Diff [Complete Blood Count Auto Diff] Stat Lab 08/19/23 18:31 Completed CMP [Comprehensive Metabolic Panel] Stat Lab 08/19/23 18:31 Completed HCG Qualitative, Serum Stat Lab 08/19/23 18:31 Completed Procalcitonin Stat Lab 08/19/23 18:31 Completed UA [Urinalysis and Microscopic] Stat Lab 08/19/23 18:31 Completed Medical Decision Narrative: In summary patient is a 22-year-old who presents to the emergency department for evaluation of pain. Patient is hemodynamically stable upon arrival, afebrile. Physical exam is remarkable for tenderness to palpation in the bilateral lower quadrants but more in the suprapubic area.. Differential diagnosis includes diverticulitis versus gastroenteritis versus ovarian cyst etc. Initial workup will be conducted with hematologic labs CT scan abdomen pelvis urinalysis. Initial interventions include crystalloid bolus Toradol Tylenol. Initial workup reviewed by me shows that her hematologic labs are nonactionable and her CT scan abdomen pelvis shows a density in the left ovary along with sigmoid diverticulosis without evidence of diverticulitis without evidence of free air or perforation. Upon repeat evaluation simple resolution of her symptoms. Given this appropriate for discharge with follow-up with [employer] TRA[employer] COORDINATOR and PCP. Critical Care Critical Care Time Critical Care Time: No
--- NOTE | 2023-08-19 18:34 | CT_ITS ---
PROCEDURE INFORMATION: Exam: CT Abdomen And Pelvis With Contrast Exam date and time: 08/19/2023 7:07 PM Age: 22 years old Clinical indication: Abdominal pain; Additional info: Acute abdominal pain TECHNIQUE: Imaging protocol: Computed tomography of the abdomen and pelvis with contrast. Radiation optimization: All CT scans at this facility use at least one of these dose optimization techniques: automated exposure control; mA and/or kV adjustment per patient size (includes targeted exams where dose is matched to clinical indication); or iterative reconstruction. Contrast material: ISOVUE; Contrast volume: 75 ml; Contrast route: IV; COMPARISON: CT ABDOMEN PELVIS W CON 02/11/2023 17:06 FINDINGS: Liver: Normal. No mass. Gallbladder and biliary ducts: Normal. No calcified stones. No ductal dilation. Pancreas: Normal. No ductal dilation. Spleen: Normal. No splenomegaly. Adrenal glands: Normal. No mass. Kidneys and ureters: Normal. No hydronephrosis. Stomach and bowel: Unremarkable. No obstruction. No mucosal thickening. Appendix: Unremarkable appendix. Intraperitoneal space: Trace free fluid in the pelvis. Vasculature: Unremarkable. No abdominal aortic aneurysm. Lymph nodes: Unremarkable. No enlarged lymph nodes. Urinary bladder: Unremarkable as visualized. Reproductive: Recently ruptured left ovarian dominant follicle. Bones/joints: Unremarkable. No acute fracture. Soft tissues: Tiny fat containing umbilical hernia. IMPRESSION: Recently ruptured left ovarian dominant follicle. This is likely the source of a trace amount of free fluid in the pelvis.
[2023-08-19 18:42] LABS: Basophils # 0.1 K/mm3 (0-0.2); Basophils % 0.8 % (0.1-2.0); Eosinophils # 0.1 K/mm3 (0.0-0.4); Eosinophils % 1.3 % (0.1-12.0); Hemoglobin 13.2 g/dL (12.2-16.2); Lymphocytes # 2.1 K/mm3 (0.7-4.5); Lymphocytes % 26.5 % (10-50); Mean Corpuscular HGB Conc 33.1 g/dL (31.8-35.4); Mean Corpuscular Hemoglobin 28.8 pg (27.0-31.2); Mean Corpuscular Volume 86.9 fl (81-99); Mean Platelet Volume 9.9 fl (7.4-10.4); Monocytes # 0.4 K/mm3 (0.1-1.0); Monocytes % 5.5 % (1.7-9.3); Neutrophils # 5.2 K/mm3 (1.8-7.8); Neutrophils % 65.9 % (37.0-80.0); Platelet Count 265 K/mm3 (142-424); White Blood Count 7.9 K/mm3 (4.8-10.8)
[2023-08-19 18:47] LABS: Chloride 108 mmol/L (98-107); Potassium 3.7 mmoL/L (3.5-5.1); Sodium 140 mmol/L (136-145)
[2023-08-19] MEDS: ACETAMINOPHEN 1,000MG/100ML VIAL 1000 MG IV (18:47)
[2023-08-19] MEDS: LACTATED RINGERS 1000ML 1,000 ML 999 ML IV (18:47)
[2023-08-19 18:49] LABS: Blood Urea Nitrogen 10 mg/dl (7-17); Microscopic, Urine URINE MICROSCOPIC (MICROSCOPIC)
[2023-08-19 18:50] LABS: Alanine Aminotransferase 32 U/L (12-78); Albumin Level 4.3 g/dl (3.5-5.0); Albumin/Globulin Ratio 1.1 (1.1-1.8); Alkaline Phosphatase 77 U/L (38-126); Anion Gap 11.7 mEq/L (5-15); Aspartate Amino Transferase 31 U/L (14-36); Bilirubin,Total 0.5 mg/dl (0.2-1.3); Calcium 9.5 mg/dl (8.4-10.2); Carbon Dioxide 24 mmol/L (22.0-30.0); Creatinine Clearance Estimated 175 mL/min (50-200); Estimated Glomerular Filt Rate 89 ml/min (>60); GFR (African American) 108 ML/MIN (>60); Globulin 3.8 g/dL (1.3-3.2); Glucose 104 mg/dl (74-100); Total Protein,Serum 8.1 g/dl (6.3-8.2)
[2023-08-19 18:54] LABS: Appearance,Urine CLEAR (Clear); Bilirubin,Urine Negative (Negative); Blood, Urine Negative (Negative); Color,Urine YELLOW (Yellow); Glucose,Urine (UA) Negative (Negative); Ketones,Urine Negative (Negative); Leukocyte Esterase,Urine TRACE (Negative); Nitrate,Urine Negative (Negative); Protein,Urine Negative (Negative); Urobilinogen,Urine 0.2 EU/dl (0.2)
[2023-08-19 18:58] LABS: HCG Qualitative, Serum Negative (Negative)
[2023-08-19 19:03] LABS: Bacteria,Urine Trace /lpf; Squamous Epithelial Cell,Urine Occasional #/hpf (0-5); WBC,Urine Occasional #/hpf (0-3)
--- NOTE | 2023-08-19 19:03 | PC.NURSE ---
pt at ct
[2023-08-19] MEDS: SODIUM CHLORIDE 0.9% 10ML SYR (RAD ONLY) 10 ML IV (19:11)
[2023-08-19] MEDS: IOPAMIDOL-370 (76%);100ML BOTTLE 75 ML IV (19:11)
[2023-08-19 19:20] LABS: Procalcitonin < 0.030 ng/mL (0.0-2.0)
[2023-08-19 20:52] VITALS: BP 119/82; PULSE 80; RESP 20; TEMP 37.1; O2SAT 97
== END 2023-08-19 20:53 | disposition home or self-care (01) ==
PROVIDERS: Physician Assistant; Emergency Provider Emergency Medicine
DX: R10.30 Lower abdominal pain, unspecified (principal); N83.292 Other ovarian cyst, left side; F17.290 Nicotine dependence, other tobacco product, uncomplicated
CPT/HCPCS: 74177; 80053; 81001; 84145; 84703; 85025; 96361; 96374; 99284; J0131; J7120; Q9967

== ENCOUNTER 2023-10-05 15:48 | Emergency (ER) | payer OTHER, SELFPAY ==
[2023-10-05 15:49] VITALS: BP 144/89; PULSE 76; RESP 17; TEMP 37.1; O2SAT 98; BMI 35.3
--- NOTE | 2023-10-05 16:09 | PC.NURSE ---
Nando CARVAJAL at bedside
--- NOTE | 2023-10-05 16:19 | HMH.EDGENADL ---
Discharge Plan Disposition Patient Disposition: Home, Self-Care Condition: Good Prescriptions Prescriptions: New methocarbamol 500 mg tablet 500 mg PO HS Qty: 30 0RF Referrals Follow up/Referrals: Provider,Referral, MD [Primary Care Provider] - See instructions Clinical Impressions Clinical Impression: Strain of lumbar region Instructions Patient Instructions: DI for Low Back Pain Print Language Print Language: [place] Discharge ED Provider: Jonathon Mac General Adult HPI <WEI Em - Last Filed: 10/05/23 16:59> General Chief complaint: Back Pain/Injury Stated complaint: back pain Time Seen by Provider: 10/05/23 15:54 Mode of Arrival: Family Vehicle Source of Information: Patient and Medical Record Limitations: No Limitations Description of Symptoms (Recalled from ER Triage Doc. by RN): Pt c/o low back pain that has been present for 3 days. States she has issues with her sciatic nerve since her last . Denies any abd pain, fever, chills, or n/v/d. STates she noticed the pain when she was sitting in her rocking chair and her back locked up on me . Pt also reports she has been Eating ibuprofen like candy . History of Present Illness HPI narrative: 22-year-old female presents emergency department with a 3-day history of lumbar spine pain. Patient states that she was sitting in her rocking chair when she got up and it locked up on me , she admits to muscle spasm in the lower back, she denies any upper or lower extremity weakness, denies any trauma per history, denies any saddle anesthesia, denies urinary bladder or bowel dysfunction, has no urinary symptomatology such as dysuria, increased frequency or hematuria, no vaginal symptom otology such as vaginal irritation, discharge, no risky/new sexual contacts. Denies any overt radicular symptomatology, states that all the pain stays in the low back, denies any midthoracic back pain or neck pain, or any other numbness or tingling. Denies any fever chills chest pain shortness of breath abdominal pain, no nausea no vomiting, no constipation, diarrhea. She been attempting to treat her pain with ibuprofen, with mild relief. She has no real relevant past medical history, takes no other medications at home, she stopped tobacco use with vaping , denies any alcohol or drug use. Triage vitals grossly unremarkable. Onset (ago): day(s) Location: back Radiation: non-radiation Severity: mild Related Data Previous Rx's ?Medication ?Instructions ?Recorded methocarbamol 500 mg tablet 500 mg PO HS #30 tabs 10/05/23 Allergies Allergy/AdvReac Type Severity Reaction Status Date / Time No Known Allergies Allergy Verified 08/21/23 14:46 PFSH <WEI Em - Last Filed: 10/05/23 16:59> PFS Disclaimer: The information contained in this section may have been updated after the patient was seen, as this information can be updated by other users. Medical History High risk sexual behavior Pelvic pain Anxiety Acute blood loss anemia Pruritus of palm and soles of feet Vaginitis Depression Nausea and vomiting Endometriosis Surgical History History of wisdom tooth extraction History of Family History Other No significant family history Social History Smoking Status: Current every day smoker tobacco type: e-cigarettes second hand exposure: Yes alcohol intake: never substance use type: denies use current occupational status: unemployed Travel in the last 8 weeks: None household members: family housing: house current occupational exposures/hazards: No caffeine: Yes <WEI Em - Last Filed: 10/05/23 16:59> ROS Obtained: Yes All systems reviewed & no additional complaints except a
[2023-10-05 16:50] VITALS: BP 140/88; PULSE 80; RESP 20; TEMP 37.1; O2SAT 98
== END 2023-10-05 17:16 | disposition home or self-care (01) ==
PROVIDERS: Emergency Provider Emergency Medicine
DX: S39.012A Strain of muscle, fascia and tendon of lower back, initial encounter (principal); M62.830 Muscle spasm of back; F17.290 Nicotine dependence, other tobacco product, uncomplicated; X50.9XXA Other and unspecified overexertion or strenuous movements or postures, initial encounter; Y92.9 Unspecified place or not applicable
CPT/HCPCS: 99283

== ENCOUNTER 2023-11-23 21:21 | Emergency (ER) | payer OTHER, SELFPAY ==
[2023-11-23 21:23] VITALS: BP 134/88; PULSE 77; RESP 18; TEMP 36.6; O2SAT 98; BMI 35.0
--- NOTE | 2023-11-23 21:41 | HMH.EDGENADL ---
Discharge Plan Disposition Patient Disposition: Home, Self-Care Condition: Good Prescriptions Prescriptions: New nitrofurantoin monohyd/m-cryst [Macrobid] 100 mg capsule 100 mg PO BID 7 Days Qty: 14 0RF Rx Instructions: must administer with a meal/food No Action methocarbamol 500 mg tablet 500 mg PO HS Qty: 30 0RF Referrals Follow up/Referrals: Provider,Referral, MD [Primary Care Provider] - See instructions Activity Restrictions/Add. Instructions Additional Instructions/Restrictions: Increase fluids and rest. Take antibiotics as directed. Please follow-up with your PCP for any further problems or concerns. Feel free to return to the ED if you have any other emergent concerns. Clinical Impressions Clinical Impression: Vomiting, Urinary tract infection Instructions Patient Instructions: DI for Acute Abdominal Pain Print Language Print Language: Uzbek Discharge ED Provider: Jonathon Mac General Adult HPI <Deepali Chapo (ED), CERTIFIED [employer] TECHNICIAN - Last Filed: 11/23/23 22:54> General Chief complaint: Abdominal Pain Stated complaint: abdominal pain,vomiting,nausea,vaginal bleeding Time Seen by Provider: 11/23/23 21:29 Mode of Arrival: Ambulatory Source of Information: Patient Limitations: No Limitations Description of Symptoms (Recalled from ER Triage Doc. by RN): Patient states she had a birthday alliance party on the and has felt bad since then. States today is worse. She complains of abdominal pain with painful vaginal bleeding- however she is not on her period. Her LMP was Nov 10; History of Present Illness HPI narrative: This is a 23-year-old female who presents to the ED today for complaint of nausea, vomiting and lower abdominal cramping. On the she had a birthday alliance party and says she drank quite a bit of alcohol and had been sick and vomiting since. She says the vomiting is continuing so she is concerned that it may be something else. She also believes she has a UTI. She says the burning in the lower abdominal cramping comes and goes. She has also had some vaginal bleeding and believes it is not her period. She is not due for her menstrual cycle until the . Patient also wants to have STD testing because she says she does not remember her birthday alliance party due to the amount of alcohol she drinks. She does tell me she has a 1-year-old and 3-year-old. Related Data Previous Rx's ?Medication ?Instructions ?Recorded methocarbamol 500 mg tablet 500 mg PO HS #30 tabs 10/05/23 nitrofurantoin 100 mg PO BID 7 days #14 caps 11/23/23 monohydrate/macrocrystals 100 mg capsule (Macrobid) Allergies Allergy/AdvReac Type Severity Reaction Status Date / Time No Known Allergies Allergy Verified 08/21/23 14:46 PFSH <Deepali Cowan (ED), CERTIFIED [employer] TECHNICIAN - Last Filed: 11/23/23 22:54> [facility] Disclaimer: The information contained in this section may have been updated after the patient was seen, as this information can be updated by other users. Medical History High risk sexual behavior Pelvic pain Anxiety Acute blood loss anemia Pruritus of palm and soles of feet Vaginitis Depression Nausea and vomiting Endometriosis Surgical History History of wisdom tooth extraction History of Family History Other No significant family history Social History Smoking Status: Never smoker second hand exposure: Yes alcohol intake: never substance use type: denies use current occupational status: unemployed Travel in the last 8 weeks: None household members: family housing: house current occupational exposures/hazards: No caffeine: Yes Other Medical History Have you received the Flu Vaccine for this season: No Have you received the Pneumonia Vaccine: No <Deepali Cowan (ED), CERTIFIED [employer] J[employer]EL[employer] TECHNICIAN - Last Filed: 11/23/23 22:54> ROS Obtained: Yes Systems reviewed as appropriate & no additional complaints except as documented Constitutional Constitutional: Reports as per HPI Physical Exam <Deepali Cowan (ED), CERTIFIED [employer] J[employer] TECHNICIAN - Last Filed: 11/23/23 22:54> General General appearance: alert and in no apparent distress Head Head exam: atraumatic and normocephalic Eye Eye exam: Present normal appearance, PERRL and EOMI ENT ENT exam: Present normal exam, normal oropharynx and mucous membranes moist Neck Neck exam: Present normal inspection, full ROM and trachea midline Chest Chest inspection: Present normal inspection Respiratory Respiratory exam: Present normal lung sounds bilaterally Cardiovascular Cardiovascular exam: Present regular rate, normal rhythm, normal heart sounds, +S1 and +S2 Abdominal Exam Abdominal exam: Present soft, tenderness (In lower abdomen) and normal bowel sounds External exam: Present normal external exam Extremities Exam Extremities exam: Present normal inspection, full ROM and normal capillary refill Neurological Exam Neurological exam: Present alert, oriented X3 and normal gait Psychiatric Psychiatric exam: Present normal affect Skin Skin exam: Present warm, dry and intact Medical Decision Making <Deepali Cowan (ED), CERTIFIED [employer] J[employer] TECHNICIAN - Last Filed: 11/23/23 22:54> Medical Records Screening: Per USPSTF and CDC recommendations, given the prevalence of disease in our region, it is our hospital?s policy to screen for HIV and viral Hepatitis for all patients aged 18 and over and those with ongoing risk factors. Mario Inquiry Pt receiving controlled substance: No Mario was queried for this patient: No Vital Signs: 11/23/23 21:23 11/23/23 22:01 11/23/23 22:30 Temperature 97.9 F Temperature Source Oral Pulse Rate 60 82 Pulse Rate [Right Radial] 77 Respiratory Rate 18 Blood Pressure 107/70 L 115/73 Blood Pressure [Right Arm] 134/88 Blood Pressure Mean [Right Arm] 103 Blood Pressure Source Blood Pressure Source [Right Arm] Automatic Cuff Blood Pressure Position Blood Pressure Position [Right Arm] Supine 02 Sat by Pulse Oximetry 98 97 99 Oxygen Delivery Method Room Air 11/23/23 22:53 Temperature 97.9 F Temperature Source Oral Pulse Rate 82 Pulse Rate [Right Radial] Respiratory Rate 18 Blood Pressure 115/76 Blood Pressure [Right Arm] Blood Pressure Mean [Right Arm] Blood Pressure Source Automatic Cuff Blood Pressure Source [Right Arm] Blood Pressure Position Supine Blood Pressure Position [Right Arm] 02 Sat by Pulse Oximetry Oxygen Delivery Method Room Air Lab Data Lab Results 11/23/23 21:30: WBC 12.4 H, RBC 5.12, Hgb 14.8, Hct 43.3, MCV 84.6, MCH 28.9, MCHC 34.2, RDW 13.8, Plt Count 276, MPV 9.7, Neut % (Auto) 80.4 H, Lymph % (Auto) 15.6, [place] % (Auto) 2.9, Eos % (Auto) 0.5, Baso % (Auto) 0.6, Neut # (Auto) 9.9 H, Lymph # (Auto) 1.9, [place] # (Auto) 0.4, Eos # (Auto) 0.1, Baso # (Auto) 0.1, Sodium 140, Potassium 4.0, Chloride 103, Carbon Dioxide 26, Anion Gap 15.0, BUN 14, Creatinine 0.90, Estimated Creat Clear 150, Estimated GFR 77, Est GFR ( Amer) 93, Glucose 88, Calcium 10.3 H, Total Bilirubin 1.0, AST 28, ALT 24, Alkaline Phosphatase 79, Total Protein 9.3 H, Albumin 5.1 H, Globulin 4.2 H, Albumin/Globulin Ratio 1.2, Lipase 40, HIV 1&2 Antibody Rapid Nonreactive 11/23/23 21:38: Urine Color Yellow, Urine Appearance Cloudy, Urine pH 6.5, Ur Specific [place] >= 1.030, Urine Protein 3+ A, Urine Glucose (UA) Negative, Urine Ketones 3+, Urine Blood 3+ A, Urine Nitrate Negative, Urine Bilirubin 1+ A, Urine Urobilinogen 1.0, Ur Leukocyte Esterase 1+ A, Urine RBC 10-20, Urine WBC 50-100, Ur Squamous Epith Cells 3-5, Urine Bacteria Trace 11/23/23 21:53: Urine HCG, Qual Negative, SARS-CoV-2 (PCR) Not detected, Influenza A Untype (PCR) Not detected, Influenza Type B (PCR) Not detected 11/23/23 21:30 11/23/23 21:30 Orders (Tests/Meds): ED MEDICATIONS Discontinued Medications Generic Name Dose Route Start Last Admin Trade Name Yordy PRN Reason Stop Dose Admin Famotidine 20 mg 11/23/23 21:38 11/23/23 21:47 Famotidine 20mg/2ml Vial IV 11/23/23 21:39 20 mg ONCE ONE Administration Ketorolac Tromethamine 30 mg 11/23/23 21:38 11/23/23 21:47 Ketorolac 30mg/Ml Vial IV 11/23/23 21:39 30 mg ONCE ONE Administration Ondansetron HCl 4 mg 11/23/23 21:38 11/23/23 21:47 Ondansetron 4mg/2ml Vial IV 11/23/23 21:39 4 mg ONCE ONE Administration ORDERS Category Date Time Status Complete Blood Count Auto Diff Stat Lab 11/23/23 21:30 Completed Comprehensive Metabolic Panel Stat Lab 11/23/23 21:30 Completed HIV (1&2) Antibody Rapid Stat Lab 11/23/23 21:30 Completed Hep C Ab with Reflex to RNA Stat Lab 11/23/23 21:30 Received Lipase Stat Lab 11/23/23 21:30 Completed Rapid PCR Covid and Flu A/B Stat Lab 11/23/23 21:53 Completed Urinalysis and Microscopic Stat Lab 11/23/23 21:38 Completed Urine , HCG Qual. Stat Lab 11/23/23 21:53 Completed Urine Culture Stat Micro 11/23/23 21:38 Received Medical Decision Narrative: Insert review patient is a 23-year-old female presenting to the emergency department for evaluation of nausea, vomiting, chills, dysuria, vaginal bleeding and STD. Patient is hemodynamically stable and nontoxic-appearing upon arrival, afebrile. Differential diagnosis includes viral illness, alcohol poisoning, UTI, , COVID, GC chlamydia among others. Workup will be conducted with hematologic labs including CBC, CMP, lipase, urine preg, urinalysis, COVID and flu, GC chlamydia, no specific imaging. Initial inventions include Zofran, Pepcid and Zofran. Initial workup reviewed by me includes a mildly elevated white count at 12.4 and otherwise normal labs. Her urine was negative, COVID and flu were negative, urine showed 1+ white cells with a trace of bacteria she also had blood in her urine. We will treat for UTI. I did explain to patient that the GC chlamydia would not be back for couple days and someone would call her with result. Patient did want me to do an external exam of her vaginal area. She wanted this because she did not remember much of the night on the 10th and she states that other people at the alliance party told her that a lot happened. I did specifically asked if she was raped and she says no. She says she just does not remember anything. Patient will be discharged home. <Jonathon Mac MD - Last Filed: 11/24/23 17:08> Vital Signs: 11/23/23 21:23 11/23/23 22:01 11/23/23 22:30 Temperature 97.9 F Temperature Source Oral Pulse Rate 60 82 Pulse Rate [Right Radial] 77 Respiratory Rate 18 Blood Pressure 107/70 L 115/73 Blood Pressure [Right Arm] 134/88 Blood Pressure Mean [Right Arm] 103 Blood Pressure Source Blood Pressure Source [Right Arm] Automatic Cuff Blood Pressure Position Blood Pressure Position [Right Arm] Supine 02 Sat by Pulse Oximetry 98 97 99 Oxygen Delivery Method Room Air 11/23/23 22:53 Temperature 97.9 F Temperature Source Oral Pulse Rate 82 Pulse Rate [Right Radial] Respiratory Rate 18 Blood Pressure 115/76 Blood Pressure [Right Arm] Blood Pressure Mean [Right Arm] Blood Pressure Source Automatic Cuff Blood Pressure Source [Right Arm] Blood Pressure Position Supine Blood Pressure Position [Right Arm] 02 Sat by Pulse Oximetry Oxygen Delivery Method Room Air Lab Data Lab Results 11/23/23 21:30: WBC 12.4 H, RBC 5.12, Hgb 14.8, Hct 43.3, MCV 84.6, MCH 28.9, MCHC 34.2, RDW 13.8, Plt Count 276, MPV 9.7, Neut % (Auto) 80.4 H, Lymph % (Auto) 15.6, [place] % (Auto) 2.9, Eos % (Auto) 0.5, Baso % (Auto) 0.6, Neut # (Auto) 9.9 H, Lymph # (Auto) 1.9, [place] # (Auto) 0.4, Eos # (Auto) 0.1, Baso # (Auto) 0.1, Sodium 140, Potassium 4.0, Chloride 103, Carbon Dioxide 26, Anion Gap 15.0, BUN 14, Creatinine 0.90, Estimated Creat Clear 150, Estimated GFR 77, Est GFR ( Amer) 93, Glucose 88, Calcium 10.3 H, Total Bilirubin 1.0, AST 28, ALT 24, Alkaline Phosphatase 79, Total Protein 9.3 H, Albumin 5.1 H, Globulin 4.2 H, Albumin/Globulin Ratio 1.2, Lipase 40, HIV 1&2 Antibody Rapid Nonreactive 11/23/23 21:38: Urine Color Yellow, Urine Appearance Cloudy, Urine pH 6.5, Ur Specific [place] >= 1.030, Urine Protein 3+ A, Urine Glucose (UA) Negative, Urine Ketones 3+, Urine Blood 3+ A, Urine Nitrate Negative, Urine Bilirubin 1+ A, Urine Urobilinogen 1.0, Ur Leukocyte Esterase 1+ A, Urine RBC 10-20, Urine WBC 50-100, Ur Squamous Epith Cells 3-5, Urine Bacteria Trace 11/23/23 21:53: Urine HCG, Qual Negative, SARS-CoV-2 (PCR) Not detected, Influenza A Untype (PCR) Not detected, Influenza Type B (PCR) Not detected Orders (Tests/Meds): ED MEDICATIONS Discontinued Medications Generic Name Dose Route Start Last Admin Trade Name Freq PRN Reason Stop Dose Admin Famotidine 20 mg 11/23/23 21:38 11/23/23 21:47 Famotidine 20mg/2ml Vial IV 11/23/23 21:39 20 mg ONCE ONE Administration Ketorolac Tromethamine 30 mg 11/23/23 21:38 11/23/23 21:47 Ketorolac 30mg/Ml Vial IV 11/23/23 21:39 30 mg ONCE ONE Administration Ondansetron HCl 4 mg 11/23/23 21:38 11/23/23 21:47 Ondansetron 4mg/2ml Vial IV 11/23/23 21:39 4 mg ONCE ONE Administration ORDERS Category Date Time Status Complete Blood Count Auto Diff Stat Lab 11/23/23 21:30 Completed Comprehensive Metabolic Panel Stat Lab 11/23/23 21:30 Completed HIV (1&2) Antibody Rapid Stat Lab 11/23/23 21:30 Completed Hep C Ab with Reflex to RNA Stat Lab 11/23/23 21:30 Received Lipase Stat Lab 11/23/23 21:30 Completed Rapid PCR Covid and Flu A/B Stat Lab 11/23/23 21:53 Completed Urinalysis and Microscopic Stat Lab 11/23/23 21:38 Completed Urine , HCG Qual. Stat Lab 11/23/23 21:53 Completed Urine Culture Stat Micro 11/23/23 21:38 Received Medical Decision Narrative: Insert review patient is a 23-year-old female presenting to the emergency department for evaluation of nausea, vomiting, chills, dysuria, vaginal bleeding and STD. Patient is hemodynamically stable and nontoxic-appearing upon arrival, afebrile. Differential diagnosis includes viral illness, alcohol poisoning, UTI, , COVID, GC chlamydia among others. Workup will be conducted with hematologic labs including CBC, CMP, lipase, urine preg, urinalysis, COVID and flu, GC chlamydia, no specific imaging. Initial inventions include Zofran, Pepcid and Zofran. Initial workup reviewed by me includes a mildly elevated white count at 12.4 and otherwise normal labs. Her urine was negative, COVID and flu were negative, urine showed 1+ white cells with a trace of bacteria she also had blood in her urine. We will treat for UTI. I did explain to patient that the GC chlamydia would not be back for couple days and someone would call her with result. Patient did want me to do an external exam of her vaginal area. She wanted this because she did not remember much of the night on the and she states that other people at the alliance party told her that a lot happened. I did specifically asked if she was raped and she says no. She says she just does not remember anything. Patient will be discharged home. I was consulted by the CINTHIA, and we discussed the complexity of the problems being addressed. I approved the treatment and management plan for this patient's care in the Emergency Department, thus performing a substantive portion of the medical decision making. Jonathon Mac MD Critical Care <Deepali Cowan (ED), CERTIFIED BENCH JEWELER TECHNICIAN - Last Filed: 11/23/23 22:54> Critical Care Time Critical Care Time: No
[2023-11-23] MEDS: KETOROLAC 30MG/ML VIAL 30 MG IV (21:47)
[2023-11-23] MEDS: ONDANSETRON 4MG/2ML VIAL 4 MG IV (21:47)
[2023-11-23] MEDS: FAMOTIDINE 20MG/2ML VIAL 20 MG IV (21:47)
[2023-11-23 21:48] LABS: Basophils # 0.1 K/mm3 (0-0.2); Basophils % 0.6 % (0.1-2.0); Eosinophils # 0.1 K/mm3 (0.0-0.4); Eosinophils % 0.5 % (0.1-12.0); Hematocrit 43.3 % (37.0-47.0); Hemoglobin 14.8 g/dL (12.2-16.2); Lymphocytes # 1.9 K/mm3 (0.7-4.5); Lymphocytes % 15.6 % (10-50); Mean Corpuscular HGB Conc 34.2 g/dL (31.8-35.4); Mean Corpuscular Hemoglobin 28.9 pg (27.0-31.2); Mean Corpuscular Volume 84.6 fl (81-99); Mean Platelet Volume 9.7 fl (7.4-10.4); Monocytes # 0.4 K/mm3 (0.1-1.0); Monocytes % 2.9 % (1.7-9.3); Neutrophils # 9.9 K/mm3 (1.8-7.8); Neutrophils % 80.4 % (37.0-80.0); Platelet Count 276 K/mm3 (142-424); Red Blood Count 5.12 M/mm3 (4.20-5.40); Red Cell Distribution Width 13.8 % (11.5-17.5); White Blood Count 12.4 K/mm3 (4.8-10.8)
[2023-11-23 21:57] LABS: Albumin Level 5.1 g/dl (3.5-5.0); Chloride 103 mmol/L (98-107); Sodium 140 mmol/L (136-145)
[2023-11-23 21:59] LABS: Blood Urea Nitrogen 14 mg/dl (7-17); Creatinine Clearance Estimated 150 mL/min (50-200); Estimated Glomerular Filt Rate 77 ml/min (>60); GFR (African American) 93 ML/MIN (>60)
[2023-11-23 22:00] LABS: Alanine Aminotransferase 24 U/L (12-78); Albumin/Globulin Ratio 1.2 (1.1-1.8); Alkaline Phosphatase 79 U/L (38-126); Aspartate Amino Transferase 28 U/L (14-36); Calcium 10.3 mg/dl (8.4-10.2); Carbon Dioxide 26 mmol/L (22.0-30.0); Globulin 4.2 g/dL (1.3-3.2); Glucose 88 mg/dl (74-100); Lipase 40 U/L (23-300); Total Protein,Serum 9.3 g/dl (6.3-8.2)
[2023-11-23 22:01] VITALS: BP 107/70; PULSE 60; O2SAT 97
[2023-11-23 22:01] LABS: Microscopic, Urine URINE MICROSCOPIC (MICROSCOPIC)
[2023-11-23 22:01] LABS: Coronavirus 19, PCR Not Detected (NotDetected); Influenza A, PCR Not Detected (NotDetected); Influenza B, PCR Not Detected (NotDetected)
[2023-11-23 22:06] LABS: Blood, Urine 3+ (Negative); Color,Urine YELLOW (Yellow); Glucose,Urine (UA) Negative (Negative); Ketones,Urine 3+ (Negative); Leukocyte Esterase,Urine 1+ (Negative); Nitrate,Urine Negative (Negative); PH,Urine 6.5 (5.0-8.5); Protein,Urine 3+ (Negative); Specific Gravity, Urine >= 1.030 (1.005-1.030)
[2023-11-23 22:09] LABS: Urine Pregnancy, HCG Qual. Negative (Negative)
[2023-11-23 22:10] LABS: Appearance,Urine Cloudy (Clear); Bilirubin,Urine 1+ (Negative)
[2023-11-23 22:26] LABS: WBC,Urine 50-100 #/hpf (0-3)
[2023-11-23 22:28] LABS: Bacteria,Urine Trace /lpf
[2023-11-23 22:30] VITALS: BP 115/73; PULSE 82; O2SAT 99
[2023-11-23 22:53] VITALS: BP 115/76; PULSE 82; RESP 18; TEMP 36.6; O2SAT 100
[2023-11-24 03:59] LABS: HIV (1&2) Antibody Rapid NONREACTIVE (NONREACTIVE)
[2023-11-26 05:09] LABS: HCV Ab Non Reactive (Non Reactive)
== END 2023-11-23 22:58 | disposition home or self-care (01) ==
PROVIDERS: Nurse Practitioner; Emergency Provider Emergency Medicine
DX: N39.0 Urinary tract infection, site not specified (principal); R10.9 Unspecified abdominal pain; R11.2 Nausea with vomiting, unspecified; N93.9 Abnormal uterine and vaginal bleeding, unspecified
CPT/HCPCS: 96374; 96375; 80053; 81001; 81025; 83690; 85025; 86803; 87086; 87389; 87491; 87636; 99283; J1885; J2405; S0028